=== PATIENT | female | born 1965 | race Caucasian/White ===

== ENCOUNTER → 2017-03-01 | Outpatient (CLI) | payer BC | END | disposition home or self-care (01) | LOC: LABWHC1 06:34 | PROVIDERS: ATTEND Internal Medicine Endocrinology, Diabetes & Metabolism | DX: E03.8 Other specified hypothyroidism (principal) | CPT/HCPCS: 36415; 84443 ==

== ENCOUNTER 2017-03-31 08:00 | Day surgery (SDC) | payer BC ==
[2017-03-29 14:48] VITALS: BMI 39.1
[~2017-03-31 08:00] MED LIST: LACTATED RINGERS 1,000 ML IV SCH
[2017-03-31 08:38] VITALS: RESP 18; TEMP 98.2
[2017-03-31] MEDS ORDERED: LIDOCAINE 1% INJ 10MG/ML (20 ML MDV) ONE (09:34)
[2017-03-31] MEDS ORDERED: PROPOFOL 10 MG/ML 20 ML VIAL IV ONE (09:34)
--- NOTE | 2017-03-31 09:47 | P.PCN ---
Date of Procedure: 03/31/17 Preoperative Diagnosis: Postoperative Diagnosis: Procedure(s) Performed: BRIEF HISTORY: Patient is a 51-year-old pleasant white female, scheduled for an elective colonoscopy as a part of surveillance of long-standing history of Crohn 's colitis diagnosed in 2005. She continues remains in clinical remission. PROCEDURE PERFORMED: Colonoscopy and biopsy. PREOPERATIVE DIAGNOSIS: Long-standing history of Crohn's colitis. IV sedation per Anesthesia. PROCEDURE: After informed consent was obtained, the patient, was brought into the endoscopy unit. IV sedation was administered by Anesthesia under continuous monitoring. Digital rectal examination was normal. Initially the Olympus CF- 160 flexible video colonoscope was then inserted in the rectum, gradually advanced into the cecum without any difficulty. Careful examination was performed as the scope was gradually being withdrawn. Ileocecal valve and the appendiceal orifice were visualized and appeared normal. Prep was excellent. Mucosa of the cecum, ascending colon, transverse colon, descending colon, sigmoid colon, and rectum appeared normal. Random biopsies were done from the rectum, sigmoid colon and descending colon to rule out dysplasia. Retroflexion was performed in the rectum and no lesions were seen. The patient tolerated the procedure well. IMPRESSION: Normal-appearing colon from rectum to cecum with no evidence of colitis or colon rectal neoplasia. RECOMMENDATIONS: Findings of this examination were discussed with the patient as well as her family. She was advised to follow with the biopsy results. If the biopsy does not show any evidence of dysplasia she can have a repeat colonoscopy in 2-3 years. Implants: Indications for Procedure: Operative Findings: Description of Procedure:
[2017-03-31 10:09] VITALS: PULSE 60
[2017-03-31 10:17] VITALS: BP 131/84
== END 2017-03-31 10:52 | disposition home or self-care (01) ==
LOC: ORWHC2ENDO 08:00
PROVIDERS: ATTEND Internal Medicine Gastroenterology
DX: K50.10 Crohn's disease of large intestine without complications (principal); I10 Essential (primary) hypertension; J45.909 Unspecified asthma, uncomplicated; E07.9 Disorder of thyroid, unspecified; M19.90 Unspecified osteoarthritis, unspecified site; Z88.6 Allergy status to analgesic agent; Z88.0 Allergy status to penicillin; Z79.899 Other long term (current) drug therapy
CPT/HCPCS: 81025; 88305; 45380; J2001; J2704

== ENCOUNTER → 2017-11-11 | Outpatient (CLI) | payer BC ==
[2017-11-11 07:58] LABS: Basophils % (A) 0 %; Eosinophils % (A) 0 %; HCT 41.8 % (34.0-46.0); HGB 13.4 gm/dL (11.4-16.0); Lymphocytes # (A) 2.6 k/uL (1.0-4.8); Lymphocytes % (A) 29 %; MCH 28.2 pg (25.0-35.0); Mean Platelet Volume 6.5; Monocytes # (A) 0.8 k/uL (0-1.0); Monocytes % (A) 9 %; Neutrophils # (A) 5.5 k/uL (1.3-7.7); Neutrophils % (A) 61 %; Platelet Count 344 k/uL (150-450); RBC 4.75 m/uL (3.80-5.40); RDW 14.4 % (11.5-15.5); WBC 9.1 k/uL (3.8-10.6)
[2017-11-11 08:07] LABS: ALT 66 U/L (9-52); AST 33 U/L (14-36); Alkaline Phosphatase 90 U/L (38-126); Anion Gap 11 mmol/L; Blood Urea Nitrogen 15 mg/dL (7-17); Carbon Dioxide 27 mmol/L (22-30); Chloride 103 mmol/L (98-107); Cholesterol 239 mg/dL (<200); Glucose 85 mg/dL (74-99); HDL Cholesterol 52 mg/dL (40-60); LDL Cholesterol,Calculated 161 mg/dL (0-99); Potassium 4.1 mmol/L (3.5-5.1); Sodium 141 mmol/L (137-145); Total Bilirubin 0.5 mg/dL (0.2-1.3); Total Protein 7.6 g/dL (6.3-8.2); Triglycerides 132 mg/dL (<150)
== END | disposition home or self-care (01) ==
LOC: LABWHC1 07:30
PROVIDERS: ATTEND Family Medicine
DX: Z00.00 Encounter for general adult medical examination without abnormal findings (principal); E78.00 Pure hypercholesterolemia, unspecified
CPT/HCPCS: 36415; 80053; 80061; 84443; 85025

== ENCOUNTER → 2018-05-19 | Outpatient (CLI) | payer BC | END | disposition home or self-care (01) | LOC: LABWHC1 10:30 | PROVIDERS: ATTEND Internal Medicine Endocrinology, Diabetes & Metabolism | DX: E03.8 Other specified hypothyroidism (principal) | CPT/HCPCS: 36415; 84443 ==

== ENCOUNTER → 2018-06-19 | Outpatient (CLI) | payer BC ==
[2018-06-19 10:46] VITALS: BP 134/92; PULSE 73; TEMP 98.4; BMI 38.5
--- NOTE | 2018-06-19 11:19 | P.HPOB ---
History of Present Illness H&P Date: 06/19/18 Chief Complaint: The patient is here for her routine gynecologic exam and mammogram. This is a 53-year-old with an LMP of 05/23/2018. The patient is without gynecologic complaints at this time. Menses are regular every month. Review of Systems She has gained 3 pounds over the last year. Respiratory: she is getting over a cold. She denies cardiac or G.I. problems. Past Medical History Past Medical History: Asthma, Hyperlipidemia, Osteoarthritis (OA), Skin Disorder Additional Past Medical History / Comment(s): crohn's disease, migraine headaches, varicose veins, oral lichen planus,lichen planus rash on back, thyroid nodule. 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 She had a history of primary infertility and irregular menses in the past. She had a previous left oophorectomy for pain and adhesions. History of Any Multi-Drug Resistant Organisms: None Reported Past Surgical History: Breast Surgery (Multiple breast biopsies), Cholecystectomy, Joint Replacement (Bilateral knee replacements), Orthopedic Surgery (Knee surgeries and carpal tunnel surgery.) Additional Past Surgical History / Comment(s): lt oophorectomy and fallopian tube removed 2011, varicose vein surgery left leg,lasik. Colonoscopy 2012. Past Anesthesia/Blood Transfusion Reactions: No Reported Reaction Past Psychological History: No Psychological Hx Reported Smoking Status: Never smoker Past Alcohol Use History: None Reported Past Drug Use History: None Reported Additional History: She has been since 1994 and works for [employer]. - Past Family History Father Family Medical History: No Reported History Additional Family Medical History / Comment(s): Heart disease Mother Family Medical History: Cancer (Lung), Myocardial Infarction ([place]) Additional Family Medical History / Comment(s): Grandmother had diabetes. Medications and Allergies Home Medications Medication Instructions Recorded Confirmed Type Balsalazide Disodium [Colazal] 2,250 mg PO TID 06/23/14 06/19/18 History Simvastatin 40 mg PO HS 06/23/14 06/19/18 History Buta/APAP/Caf/Cod 51-805-65-30 1 - 2 each PO DAILY PRN 09/18/14 06/19/18 History [Fioricet w/Cod 32-631-10-30MG] Ibuprofen [Motrin] 800 mg PO DAILY PRN 09/18/14 06/19/18 History Multivitamins, Thera [Multivitamin] 1 each PO DAILY 09/18/14 06/19/18 History Topiramate [Topamax] 100 mg PO BID 09/18/14 06/19/18 History Calcium Carb-Vit D 500Mg-200Un 2 each PO BID #60 tablet 09/25/14 06/19/18 Rx [Oscal 500+D] Ascorbic Acid [Vitamin C] 500 mg PO DAILY 03/29/17 06/19/18 History Folic Acid 1 mg PO DAILY 03/29/17 06/19/18 History Loratadine [Claritin] 10 mg PO DAILY 03/29/17 06/19/18 History Pilocarpine [Salagen] 5 mg PO BID 03/29/17 06/19/18 History Thyroid,Pork [[place] Thyroid] 90 mg PO QAM 03/29/17 06/19/18 History Beclomethasone Dip 80 Mcg/Puff PO BID 06/19/18 History [Qvar 80 mcg] Allergies Allergy/AdvReac Type Severity Reaction Status Date / Time aspirin Allergy Dyspnea Verified 06/19/18 10:43 Penicillins Allergy Rapid Verified 06/19/18 10:43 Heart Rate, anxiety attack Exam Vital Signs Temp Pulse BP 06/19/18 10:43 98.4 F 73 134/92 Intake and Output 06/18/18 06/19/18 06/19/18 22:59 06:59 14:59 Other: Weight 111.584 kg Height 5'7", BMI 38.5. This is a well-developed well-nourished white female who is alert and oriented times 3 in no acute distress. HEENT: Within normal limits. NECK: Supple without mass or thyromegaly. CHEST AND LUNGS: Clear to auscultation. HEART: Regular rate and rhythm. BREASTS: Are without mass or discharge. AXILLARY EXAM: Negative for adenopathy. BACK: Negative for CVA tenderness. ABDOMEN: Soft, mildly obese, nontender, without palpable masses. PELVIC EXAM: Normal external genitalia. Cervix and vagina appear normal. There is no unusual discharge. There is no evidence of prolapse. The uterus is midposition, nongravid size and nontender. There are no palpable adnexal masses or tenderness. RECTAL EXAM: rectovaginal exam is negative for mass or tenderness and is negative for occult blood. EXTREMITIES: Nontender. IMPRESSION: 1. 53-year-old premenopausal female with normal gynecologic exam. 2. Mildly Elevated blood pressure. PLAN: 1. Pap smear was performed. 2. Self breast awareness was discussed with the patient. 3. Screening mammogram will be done today. 4. Osteoporosis prevention was discussed. 5. She will do home blood pressure checks on a regular basis and follow-up with Dr. Mario for blood pressure elevations. 6. She will return in one year.
--- NOTE | 2018-06-20 11:48 | MM ---
Reason for exam: screening (asymptomatic). Last mammogram was performed 2 years and 7 months ago. History: Patient had first child at age 36. Benign excisional biopsy of the left breast, November 02, 2007. Took hormonal contraceptives for 18 years beginning at age 25. Took progesterone for 6 months beginning at age 43. Physical Findings: A clinical breast exam by your physician is recommended on an annual basis and results should be correlated with mammographic findings. MG Screening Mammo w CAD Bilateral CC, MLO, and XCCL view(s) were taken. Prior study comparison: November 18, 2015, bilateral MG screening mammo w CAD. May 07, 2014, left breast MG work up mamm w CAD LT. There are scattered fibroglandular densities. No significant changes when compared with prior studies. ASSESSMENT: Benign, BI-RAD 2 RECOMMENDATION: Routine screening mammogram of both breasts in 1 year.
== END ==
LOC: WWCWWP 10:02
PROVIDERS: ATTEND Obstetrics & Gynecology
DX: Z12.31 Encounter for screening mammogram for malignant neoplasm of breast (principal)
CPT/HCPCS: 77067

== ENCOUNTER → 2019-04-08 | Outpatient (CLI) | payer BC | END | disposition home or self-care (01) | LOC: LABWHC1 11:29 | PROVIDERS: ATTEND Internal Medicine Endocrinology, Diabetes & Metabolism | DX: E03.8 Other specified hypothyroidism (principal) | CPT/HCPCS: 36415; 84443 ==

== ENCOUNTER → 2019-09-07 | Outpatient (CLI) | payer BC ==
[2019-09-07 09:22] LABS: Basophils # (A) 0.1 k/uL (0-0.2); Basophils % (A) 1 %; Eosinophils # (A) 0.1 k/uL (0-0.7); Eosinophils % (A) 2 %; HCT 42.4 % (34.0-46.0); HGB 13.3 gm/dL (11.4-16.0); Lymphocytes # (A) 1.7 k/uL (1.0-4.8); Lymphocytes % (A) 27 %; MCH 28.2 pg (25.0-35.0); MCHC 31.3 g/dL (31.0-37.0); MCV 90.1 fL (80.0-100.0); Mean Platelet Volume 6.7; Monocytes # (A) 0.9 k/uL (0-1.0); Monocytes % (A) 14 %; Neutrophils # (A) 3.6 k/uL (1.3-7.7); Neutrophils % (A) 55 %; Platelet Count 296 k/uL (150-450); RBC 4.71 m/uL (3.80-5.40); RDW 14.1 % (11.5-15.5); WBC 6.6 k/uL (3.8-10.6)
[2019-09-07 16:36] LABS: African American GFR (CKD) 120.6 (60.0-200.0); Albumin 4.2 g/dL (3.80-4.90); Albumin/Globulin Ratio 1.62 (1.60-3.17); Anion Gap 6.6 mmol/L (4.00-12.00); BUN/Creat Ratio 18.33 Ratio (12.00-20.00); Calcium 8.9 mg/dL (8.7-10.3); Carbon Dioxide 26.4 mmol/L (21.6-31.8); Chol/HDL Ratio 4.52; Globulin 2.6 g/dL (1.6-3.3); LDL Cholesterol,Calculated 147.6 mg/dL (0.0-131.0); Non-African American GFR(CKD) 104.1 (60.0-200.0); Potassium 4.3 mmol/L (3.5-5.5); Total Bilirubin 0.4 mg/dL (0.3-1.2); Total Protein 6.8 g/dL (6.2-8.2); VLDL Calculation 42.4 mg/dL (5.00-40.00)
== END | disposition home or self-care (01) ==
LOC: LABWHC1 08:30
PROVIDERS: ATTEND Family Medicine
DX: E78.00 Pure hypercholesterolemia, unspecified (principal)
CPT/HCPCS: 36415; 80053; 80061; 85025

== ENCOUNTER 2020-10-02 09:02 | Day surgery (SDC) | payer BC ==
[2020-09-30 16:01] VITALS: BMI 37.8
[~2020-10-02 09:02] MED LIST changes: +LIDOCAINE 1% (10MG/ML) FOR IV START INTRADERMA PRN
[2020-10-02 09:26] VITALS: TEMP 97.3
[2020-10-02] MEDS ORDERED: PROPOFOL 10 MG/ML 20 ML VIAL IV ONE (10:40)
--- NOTE | 2020-10-02 11:06 | P.PCN ---
Date of Procedure: 10/02/20 Procedure(s) Performed: BRIEF HISTORY: Patient is a 55-year-old pleasant female scheduled for an elective colonoscopy as a part of her evaluation of long-standing history of Crohn's colitis diagnosed in 1999. Patient is in clinical remission. PROCEDURE PERFORMED: Colonoscopy with random biopsies. PREOPERATIVE DIAGNOSIS: Surveillance of long-standing history of Crohn's colitis. IV sedation per Anesthesia. PROCEDURE: After informed consent was obtained, the patient, was brought into the endoscopy unit. IV sedation was administered by Anesthesia under continuous monitoring. Digital rectal examination was normal. Initially the Olympus CF-160 flexible video colonoscope was then inserted in the rectum, gradually advanced into the cecum without any difficulty. Careful examination was performed as the scope was gradually being withdrawn. Ileocecal valve and the appendiceal orifice were visualized and appeared normal. Prep was excellent. Mucosa of the cecum, ascending colon, transverse colon, descending colon, sigmoid colon, and rectum appeared normal. Random biopsies were done from the cecum to rectum at every 10 cm into well. Retroflexion was performed in the rectum and no lesions were seen. The patient tolerated the procedure well. IMPRESSION: Normal-appearing colon from rectum to cecum with colitis or colorectal neoplasia. RECOMMENDATIONS: Findings of this examination were discussed with the patient as well as a family. She was advised to follow with the biopsy results. If the biopsy does not show any evidence of dysplasia, she can have a repeat colonoscopy in 2 years.
[2020-10-02 11:35] VITALS: PULSE 61; RESP 16
[2020-10-02 11:51] VITALS: BP 154/88
== END 2020-10-02 11:52 | disposition home or self-care (01) ==
LOC: ORWHC2ENDO 09:02
PROVIDERS: ATTEND Internal Medicine Gastroenterology
DX: K50.10 Crohn's disease of large intestine without complications (principal); K52.9 Noninfective gastroenteritis and colitis, unspecified; E78.5 Hyperlipidemia, unspecified; J45.909 Unspecified asthma, uncomplicated; E07.9 Disorder of thyroid, unspecified; G43.909 Migraine, unspecified, not intractable, without status migrainosus; Z79.891 Long term (current) use of opiate analgesic; Z79.51 Long term (current) use of inhaled steroids; Z79.890 Hormone replacement therapy; Z79.899 Other long term (current) drug therapy; Z88.6 Allergy status to analgesic agent; Z88.0 Allergy status to penicillin
CPT/HCPCS: 81025; 88305; 45380; J2704

== ENCOUNTER → 2020-11-09 | Outpatient (CLI) | payer BC | LOC: LABWHC1 07:40 | PROVIDERS: ATTEND Internal Medicine Endocrinology, Diabetes & Metabolism | DX: E03.8 Other specified hypothyroidism (principal) | CPT/HCPCS: 36415; 84443 ==

== ENCOUNTER → 2021-07-01 | Outpatient (CLI) | payer BC ==
--- NOTE | 2021-07-02 06:54 | US ---
EXAMINATION TYPE: US thyroid st tissue head/neck DATE OF EXAM: 07/01/2021 COMPARISON: 03/02/2015 CLINICAL HISTORY: R22.1 Localized swelling, mass and lump, neck. thyroidectomy years ago, residual ti ssue on the right, still on thyroid meds 2.6 x 2.6 x 1.8cm midline residual tissue noted IMPRESSION: Residual right-sided thyroid tissue noted in the patient is status post thyroidectomy. No significant change appreciated.
== END | disposition home or self-care (01) ==
LOC: RADUSWWP 16:10
PROVIDERS: ATTEND Internal Medicine Endocrinology, Diabetes & Metabolism
DX: R22.1 Localized swelling, mass and lump, neck (principal); E89.0 Postprocedural hypothyroidism
CPT/HCPCS: 76536; 84443

== ENCOUNTER → 2021-12-22 | Outpatient (CLI) | payer BC | END | disposition home or self-care (01) | LOC: LABWHC1 13:55 | PROVIDERS: ATTEND Internal Medicine Endocrinology, Diabetes & Metabolism | DX: E03.8 Other specified hypothyroidism (principal) | CPT/HCPCS: 36415; 84443 ==

== ENCOUNTER → 2022-02-10 | Outpatient (CLI) | payer BC ==
--- NOTE | 2022-02-11 10:49 | US ---
EXAMINATION TYPE: US thyroid st tissue head/neck DATE OF EXAM: 02/10/2022 COMPARISON: US CLINICAL HISTORY: R22.1 NECK SWELLING. Neck swelling. Patient has hx of thyroidectomy. Pt takes thyro id medication currently. GLAND SIZE: Residual tissue is visualized within the midline neck measuring 3.1 x 2.9 x 1.6 cm. Tissue appears ve ry lobulated/heterogeneous as on last exam-unable to accurately identify borders of possible nodules today. TR 3 Bilateral neck scanned, no evidence of lymphadenopathy. IMPRESSION: There may be interval development of a thyroid nodule. Consider additional workup. Biopsy is recommen ded. 2017 ACR TI-RADS LEVEL: TR-RADS 3 - Mildly Suspicious: Follow if > 1.5 cm, FNA if > 2.5 cm *Highest TI-RADS level nodule reported
== END | disposition home or self-care (01) ==
LOC: RADUSWWP 16:15
PROVIDERS: ATTEND Internal Medicine Endocrinology, Diabetes & Metabolism
DX: R22.1 Localized swelling, mass and lump, neck (principal); E89.0 Postprocedural hypothyroidism
CPT/HCPCS: 76536

== ENCOUNTER → 2022-04-05 | Outpatient (CLI) | payer BC ==
[2022-04-05 14:25] VITALS: BP 148/94; PULSE 74; RESP 17; TEMP 98.9
--- NOTE | 2022-04-05 15:10 | P.HPOB ---
History of Present Illness H&P Date: 04/05/22 Chief Complaint: The patient is here for her routine gynecologic exam. This is a 56-year-old with an LMP of 03/13/2022. The patient is infrequently sexually active and uses condoms when sexually active. She is without gynecologic complaints. Menstrual periods are still quite regular approximately every month. She denies hot flashes. Review of Systems She has gained about 15 pounds over the past 4 years. She denies respiratory, cardiac, or GI problems. Past Medical History Past Medical History: Asthma, Hyperlipidemia, Osteoarthritis (OA), Skin Disorder, Thyroid Disorder Additional Past Medical History / Comment(s): crohn's disease, migraine headaches, varicose veins, oral lichen planus, lichen planus rash on back, thyroid nodule. 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 History of Any Multi-Drug Resistant Organisms: None Reported Past Surgical History: Breast Surgery, Cholecystectomy, Joint Replacement, Orthopedic Surgery Additional Past Surgical History / Comment(s): lt oophorectomy and fallopian tube removed 2011, varicose vein surgery left leg,lasik. Colonoscopy 2020(next after 3yr). BILAT KNEE REPLACEMENT. BILATERAL CARPAL TUNNEL SURGERY. Past Anesthesia/Blood Transfusion Reactions: No Reported Reaction Past Psychological History: No Psychological Hx Reported Smoking Status: Never smoker Past Alcohol Use History: None Reported Past Drug Use History: None Reported Additional History: She has been since 1994 and works for [employer]. - Past Family History Father Family Medical History: No Reported History Additional Family Medical History / Comment(s): Heart disease Mother Family Medical History: Cancer, Myocardial Infarction ([place]) Additional Family Medical History / Comment(s): Grandmother had diabetes. Medications and Allergies Home Medications Medication Instructions Recorded Confirmed Type Balsalazide Disodium [Colazal] 2,250 mg PO BID 06/23/14 04/05/22 History Simvastatin 40 mg PO HS 06/23/14 04/05/22 History Buta/APAP/Caf/Cod 48-586-43-30 1 - 2 each PO DAILY PRN 09/18/14 04/05/22 History [Fioricet w/Cod 76-405-43-30MG] Ibuprofen [Motrin] 800 mg PO DAILY PRN 09/18/14 04/05/22 History Multivitamins, Thera [Multivitamin] 1 each PO DAILY 09/18/14 04/05/22 History Topiramate [Topamax] 100 mg PO BID 09/18/14 04/05/22 History Calcium Carb-Vit D 500Mg-5Mcg 2 each PO BID #60 tablet 09/25/14 04/05/22 Rx [Oscal 500+D] Ascorbic Acid [Vitamin C] 500 mg PO DAILY 03/29/17 04/05/22 History Loratadine [Claritin] 10 mg PO DAILY 03/29/17 04/05/22 History Thyroid,Pork [[place] Thyroid] 90 mg PO QAM 03/29/17 04/05/22 History Beclomethasone Dip 80 Mcg/Puff 1 puff INHALATION BID 06/19/18 04/05/22 History [Qvar 80 mcg] Cholecalciferol [Vitamin D3 (25 125 mcg PO DAILY 09/30/20 04/05/22 History Mcg = 1000 Iu)] Folic Acid 0.8 mg PO DAILY 09/30/20 04/05/22 History Allergies Allergy/AdvReac Type Severity Reaction Status Date / Time aspirin Allergy Dyspnea Verified 04/05/22 14:19 Penicillins Allergy Rapid Verified 04/05/22 14:19 Heart Rate, anxiety attack Exam Vital Signs Temp Pulse Resp BP Pulse Ox 04/05/22 14:21 98.9 F 74 17 148/94 96 Intake and Output 04/05/22 04/05/22 04/05/22 06:59 14:59 22:59 Other: Weight 118.841 kg Height 5 feet 7 inches, weight 262 pounds, BMI 41.0. This is a well-developed well-nourished heavyset white female who is alert and oriented times 3 in no acute distress. HEENT: Within normal limits. NECK: Supple without mass or thyromegaly. CHEST AND LUNGS: Clear to auscultation. HEART: Regular rate and rhythm. BREASTS: Are without mass or discharge. AXILLARY EXAM: Negative for adenopathy. BACK: Negative for CVA tenderness. ABDOMEN: Soft, nontender, without palpable masses. PELVIC EXAM: Normal external genitalia with mild atrophy. Cervix and vagina appear normal with mild atrophy. The cervix is slightly friable upon doing the Pap smear. There is no unusual discharge. There is no evidence of prolapse. The uterus is midposition, nongravid size and nontender. There are no palpable adnexal masses or tenderness. RECTAL EXAM: Rectovaginal exam is negative for mass or tenderness and is negative for occult blood. EXTREMITIES: Nontender. IMPRESSION: 1. 56-year-old premenopausal female who uses condoms for control, with normal gynecologic exam. 2. Previous LSO for benign reasons. PLAN: 1. Pap smear cotest was performed. 2. Self breast awareness was discussed with the patient. We have also discussed symptoms associated with inflammatory breast cancer. 3. Screening mammogram is due and the order slip was given to the patient for this. 4. Osteoporosis prevention was discussed. I have stressed the importance of adequate calcium, vitamin D and regular exercise. Recommended amounts of calcium and vitamin D were also discussed. 5. The patient will keep a menstrual calendar a phone and call if menstrual problems. 6. She was advised to return in one year for her annual well woman exam.
== END ==
LOC: WWCWWP 14:05
PROVIDERS: ATTEND Obstetrics & Gynecology
DX: Z01.419 Encounter for gynecological examination (general) (routine) without abnormal findings (principal); J45.909 Unspecified asthma, uncomplicated; E78.5 Hyperlipidemia, unspecified; M19.90 Unspecified osteoarthritis, unspecified site; Z79.899 Other long term (current) drug therapy; Z88.6 Allergy status to analgesic agent; Z88.0 Allergy status to penicillin

== ENCOUNTER → 2022-04-15 | Outpatient (CLI) | payer BC ==
--- NOTE | 2022-04-18 08:34 | MM ---
Reason for Exam: Screening (asymptomatic). Last mammogram was performed 3 year(s) and 10 month(s) ago. Patient History: Menarche at age 17. First Full-Term at age 36. Late child-bearing (after 30). Hormonal Contraceptives for 18 years from age 25 until age 43. 11/02/2007, Benign Excisional Biopsy on the left side. Last menstrual period: 03/15/2022 Risk Values: Prabha 5 year model risk: 1.8%. NCI Lifetime model risk: 12.0%. Prior Study Comparison: 05/07/2014 Left Diagnostic Mammogram, [facility]. 11/18/2015 Bilateral Screening Mammogram, [facility]. 06/19/2018 Bilateral Screening Mammogram, [facility]. Tissue Density: There are scattered fibroglandular densities. Findings: Analyzed By CAD. Focal asymmetry within the right breast in the outer lower quadrant. There is no suspicious group of microcalcifications. Overall Assessment: Incomplete: need additional imaging evaluation, BI-RAD 0 Management: Diagnostic Mammogram of the right breast. A clinical breast exam by your physician is recommended on an annual basis and results should be correlated with mammographic findings. [facility] will attempt to contact patient to return for supplemental views and ultrasound if indicated. Electronically signed and approved by: Jacky Carroll D.O.
== END | disposition home or self-care (01) ==
LOC: RADMAMWWP 15:55
PROVIDERS: ATTEND Obstetrics & Gynecology
DX: Z12.31 Encounter for screening mammogram for malignant neoplasm of breast (principal)
CPT/HCPCS: 77067

== ENCOUNTER 2022-10-07 11:10 | Day surgery (SDC) | payer BC ==
[2022-10-07] MEDS ORDERED: LACTATED RINGERS 1,000 ML IV ONE (12:49)
[2022-10-07 13:00] VITALS: TEMP 98
[2022-10-07] MEDS ORDERED: PROPOFOL 10 MG/ML 20 ML VIAL IV ONE (13:36)
[2022-10-07] MEDS ORDERED: HYDROmorphone (PF) 1 MG/ML ONE (13:36)
--- NOTE | 2022-10-07 13:57 | P.PCN ---
Date of Procedure: 10/07/22 Procedure(s) Performed: BRIEF HISTORY: Patient is a 57-year-old pleasant white female scheduled for an elective colonoscopy as a part of surveillance of long-standing history of Crohn's colitis diagnosed in 2004. PROCEDURE PERFORMED: Colonoscopy with random biopsies.. PREOPERATIVE DIAGNOSIS: Long-standing history of Crohn's colitis. IV sedation per Anesthesia. PROCEDURE: After informed consent was obtained, the patient, was brought into the endoscopy unit. IV sedation was administered by Anesthesia under continuous monitoring. Digital rectal examination was normal. Initially the Olympus CF-160 flexible video colonoscope was then inserted in the rectum, gradually advanced into the cecum without any difficulty. Careful examination was performed as the scope was gradually being withdrawn. Ileocecal valve and the appendiceal orifice were visualized and appeared normal. Prep was excellent. Mucosa of the cecum, ascending colon, transverse colon, descending colon, sigmoid colon, and rectum appeared normal. Retroflexion was performed in the rectum and no lesions were seen. Biopsies were done from the cecum to rectum at every 10 cm intervals to rule out dysplasia. The patient tolerated the procedure well. IMPRESSION: Normal-appearing colon from rectum to cecum no evidence of active c olitis or colorectal neoplasia. RECOMMENDATIONS: Findings of this examination were discussed with the patient as well as a family. She was advised to follow with the biopsy results and have a repeat colonoscopy in 2 years from now..
[2022-10-07 14:03] VITALS: RESP 16
[2022-10-07 14:55] VITALS: BP 135/90; PULSE 73
== END 2022-10-07 14:42 | disposition home or self-care (01) ==
LOC: ORWHC2ENDO 11:10
PROVIDERS: ATTEND Internal Medicine Gastroenterology
DX: K50.118 Crohn's disease of large intestine with other complication (principal); K52.9 Noninfective gastroenteritis and colitis, unspecified; E78.5 Hyperlipidemia, unspecified; G43.909 Migraine, unspecified, not intractable, without status migrainosus; J45.909 Unspecified asthma, uncomplicated; E07.9 Disorder of thyroid, unspecified; Z88.0 Allergy status to penicillin; Z88.6 Allergy status to analgesic agent; Z79.1 Long term (current) use of non-steroidal anti-inflammatories (NSAID); Z79.899 Other long term (current) drug therapy
CPT/HCPCS: 45380; J1170; J2704; 88305

== ENCOUNTER → 2023-04-14 | Outpatient (CLI) | payer BC | END | disposition home or self-care (01) | LOC: LABWHC1 07:19 | PROVIDERS: ATTEND Internal Medicine Endocrinology, Diabetes & Metabolism | DX: E03.8 Other specified hypothyroidism (principal) | CPT/HCPCS: 36415; 84443 ==

== ENCOUNTER → 2023-08-21 | Outpatient (CLI) | payer BC ==
[2023-08-21 16:33] LABS: ALT 23 U/L (8-49); AST 14 U/L (13-35); Albumin 4.2 g/dL (3.8-4.9); Alkaline Phosphatase 93 U/L (41-126); BUN/Creat Ratio 16.12 Ratio (12.00-20.00); Blood Urea Nitrogen 12.9 mg/dL (9.0-27.0); Calcium 9.2 mg/dL (8.7-10.3); Carbon Dioxide 26.2 mmol/L (21.6-31.8); Chloride 101 mmol/L (96-109); Globulin 3.5 g/dL (1.6-3.3); Glucose 83 mg/dL (70-110); Potassium 4.1 mmol/L (3.5-5.5); Sodium 140 mmol/L (135-145); Total Bilirubin 0.3 mg/dL (0.3-1.2); Total Protein 7.7 g/dL (6.2-8.2)
[2023-08-21 16:43] LABS: Basophils # (A) 0.03 X 10*3/uL (0.00-0.10); Basophils % (A) 0.7 %; Eosinophils # (A) 0.03 X 10*3/uL (0.04-0.35); Eosinophils % (A) 0.7 %; HCT 39.8 % (37.2-50.0); HGB 12.9 g/dL (12.0-17.0); Lymphocytes # (A) 1.96 X 10*3/uL (0.90-5.00); Lymphocytes % (A) 42.8 %; MCH 30.7 pg (27.0-32.0); MCHC 32.4 g/dL (32.0-37.0); MCV 94.8 FL (80.0-97.0); Mean Platelet Volume 8.7 FL (9.5-12.2); Monocytes # (A) 0.61 X 10*3/uL (0.20-1.00); Monocytes % (A) 13.3 %; NRBC Per 100 WBC 0 X 10*3/uL (0.00-0.01); Neutrophils # (A) 1.93 X 10*3/uL (1.80-7.70); Neutrophils % (A) 42.1 %; Platelet Count 248 X 10*3/uL (140-440); RBC Morphology Normal (Normal); RDW 14.5 % (11.5-14.5); WBC 4.58 X 10*3/uL (4.50-10.00)
== END | disposition home or self-care (01) ==
LOC: LABWHC1 08:05
PROVIDERS: ATTEND Family Medicine
DX: Z00.00 Encounter for general adult medical examination without abnormal findings (principal); E55.9 Vitamin D deficiency, unspecified; E03.8 Other specified hypothyroidism
CPT/HCPCS: 36415; 80053; 82306; 84443; 85025

== ENCOUNTER → 2023-11-10 | Outpatient (CLI) | payer BC | END | disposition home or self-care (01) | LOC: LABWHC1 09:54 | PROVIDERS: ATTEND Internal Medicine Endocrinology, Diabetes & Metabolism | DX: E03.8 Other specified hypothyroidism (principal) | CPT/HCPCS: 36415; 84443 ==

== ENCOUNTER 2024-05-14 10:22 | Emergency (ER) | payer BC ==
[2024-05-14 10:38] VITALS: RESP 20
--- NOTE | 2024-05-14 10:53 | ED ---
Upper Extremity HPI - General Chief Complaint: Extremity Injury, Upper Stated Complaint: R shoulder pain Time Seen by Provider: 05/14/24 10:51 Source: patient, RN notes reviewed Mode of arrival: ambulatory Limitations: no limitations - History of Present Illness Initial Comments: 59-year-old female presented to the ER with a chief complaint of right shoulder pain. Patient states last week she was seeing a chiropractor for lumbar back pain which has since improved. She states on Monday she started to experience right shoulder pain described send as sharp in nature. Movement exacerbates this. She does report decreased range of motion due to the pain. Denies any cervical neck pain. She does report mild paresthesias with motion. She denies any injuries, traumas or increase in activity from normal. Patient has been taking [id number] Tylenol and light using lidocaine patches without relief. Patient denies any chest pain, shortness of breath, dizziness, lightheadedness, nausea or vomiting. - Related Data Home Medications Medication Instructions Recorded Confirmed Balsalazide Disodium [Colazal] 2,250 mg PO BID 06/23/14 10/05/22 Simvastatin 40 mg PO HS 06/23/14 10/05/22 Buta/APAP/Caf/Cod 28-870-45-30 1 - 2 each PO DAILY PRN 09/18/14 10/05/22 [Fioricet w/Cod 17-219-64-30MG] Ibuprofen [Motrin] 800 mg PO DAILY PRN 09/18/14 10/05/22 Multivitamins, Thera [Multivitamin] 1 each PO DAILY 09/18/14 10/05/22 Topiramate [Topamax] 100 mg PO BID 09/18/14 10/05/22 Ascorbic Acid [Vitamin C] 500 mg PO DAILY 03/29/17 10/05/22 Loratadine [Claritin] 10 mg PO DAILY 03/29/17 10/05/22 Thyroid,Pork [[place] Thyroid] 90 mg PO QAM 03/29/17 10/05/22 Beclomethasone Dip 80 Mcg/Puff 1 puff INHALATION DAILY PRN 06/19/18 10/05/22 [Qvar 80 mcg] Cholecalciferol [Vitamin D3 (25 125 mcg PO DAILY 09/30/20 10/05/22 Mcg = 1000 Iu)] Folic Acid 0.8 mg PO DAILY 09/30/20 10/05/22 Previous Rx's Medication Instructions Recorded Calcium Carb-Vit D 500Mg-5Mcg 2 each PO BID #60 tablet 09/25/14 [Oscal 500+D] Cyclobenzaprine [Flexeril] 10 mg PO TID PRN #15 tab 05/14/24 Allergies Allergy/AdvReac Type Severity Reaction Status Date / Time aspirin Allergy Dyspnea Verified 05/14/24 10:38 Penicillins Allergy Rapid Verified 05/14/24 10:38 Heart Rate, anxiety attack Review of Systems ROS Statement: Those systems with pertinent positive or pertinent negative responses have been documented in the HPI. ROS Other: All systems not noted in ROS Statement are negative. Past Medical History Past Medical History: Asthma, Hyperlipidemia, Osteoarthritis (OA), Skin Disorder, Thyroid Disorder Additional Past Medical History / Comment(s): crohn's disease, migraine hea daches, varicose veins, oral lichen planus, lichen planus rash on back, thyroid nodule. History of Any Multi-Drug Resistant Organisms: None Reported Past Surgical History: Breast Surgery, Cholecystectomy, Joint Replacement, Orthopedic Surgery Additional Past Surgical History / Comment(s): lt oophorectomy and fallopian tube removed 2011, varicose vein surgery left leg,lasik. Colonoscopy 2020(next after 3yr). BILAT KNEE REPLACEMENT. BILATERAL CARPAL TUNNEL SURGERY. breast bx on lft Past Anesthesia/Blood Transfusion Reactions: No Reported Reaction Past Psychological History: No Psychological Hx Reported Smoking Status: Never smoker Past Alcohol Use History: None Reported Past Drug Use History: None Reported - Past Family History Father Family Medical History: No Reported History Additional Family Medical History / Comment(s): Heart disease Mother Family Medical History: Cancer, Myocardial Infarction (AR) Additional Family Medical History / Comment(s): Grandmother had diabetes. General Exam Limitations: no limitations General appearance: alert, in no apparent distress Neck exam: Present: normal inspection. Absent: tenderness, meningismus, lymphadenopathy Respiratory exam: Present: normal lung sounds bilaterally. Absent: respiratory distress, wheezes, rales, rhonchi, stridor Cardiovascular Exam: Present: regular rate, normal rhythm, normal heart sounds. Absent: systolic murmur, diastolic murmur, rubs, gallop, clicks Extremities exam: Present: tenderness (Right clavicle. 2+ right radial pulse. Muscle tenderness right trapezius. 3+) Course Vital Signs 05/14/24 05/14/24 10:35 12:18 Temperature 98.2 F 98.1 F Pulse Rate 91 88 Respiratory 20 20 Rate Blood Pressure 131/86 128/77 O2 Sat by Pulse 97 98 Oximetry Medical Decision Making - Medical Decision Making Was pt. sent in by a medical professional or institution (, [place], [facility], urgent care, hospital, or prison...) When possible be specific @ -No Did you speak to anyone other than the patient for history (EMS, parent, family, police, friend...)? What history was obtained from this source @ -No Did you review nursing and triage notes (agree or disagree)? Why? @ -I reviewed and agree with nursing and triage notes Were old charts reviewed (outside hosp., previous admission, EMS record, old EKG, old radiological studies, urgent care reports/EKG's, prison records)? Report findings @ -No old charts were reviewed Differential Diagnosis (chest pain, altered mental status, abdominal pain women, abdominal pain men, vaginal bleeding, weakness, fever, dyspnea, syncope, headache, dizziness, GI bleed, back pain, seizure, CVA, palpatations, mental health, musculoskeletal)? @ -Differential Musculoskeletal Muscular strain, contusion, ligament sprain, fracture, arthritis, septic arthritis, bursitis, cellulitis, muscle spasm, nerve compression, DVT, arterial occlusion, herpes zoster, electrolyte abnormality, tumor.... This is not meant to be in all inclusive list EKG interpreted by me (3pts min.). @ -None X-rays interpreted by me (1pt min.). @ -Right shoulder x-ray interpreted me showing mild AC joint arthropathy. No acute osseous process. Cervical spine negative for acute process. CT interpreted by me (1pt min.). @ -None done U/S interpreted by me (1pt. min.). @ -None done What testing was considered but not performed or refused? (CT, X-rays, U/S, labs)? Why? @ -None What meds were considered but not given or refused? Why? @ -None Did you discuss the management of the patient with other professionals (professionals i.e. , TERE, [facility], lab, RT, psych nurse, social insurance adviser, proration clerk, teacher, credit or loans officer, community case manager)? Give summary @ -No Was smoking cessation discussed for >3mins.? @ -No Was critical care preformed (if so, how long)? @ -No Were there social determinants of health that impacted care today? How? (Homelessness, low income, unemployed, alcoholism, drug addiction, transportation, low edu. Level, literacy, decrease access to med. care, penitentiary, rehab)? @ -No Was there de-escalation of care discussed even if they declined (Discuss DNR or withdrawal of care, Hospice)? DNR status @ -No What co-morbidities impacted this encounter? (DM, HTN, Smoking, COPD, CAD, Cancer, CVA, ARF, Chemo, Hep., AIDS, mental health diagnosis, sleep apnea, morbid obesity)? @ -None Was patient admitted / discharged? Hospital course, mention meds given and route, prescriptions, significant lab abnormalities, going to OR and other pertinent info. @ -Discharge. 59-year-old female presenting to the ER with a chief complaint of right shoulder pain. History and physical exam completed. Vitals within normal limits. Focal tenderness to right trapezius with limited range of motion due to pain. Right upper extremity neurovascular intact. Patient given p.o. ibuprofen for symptom control in the ER. X-rays obtained negative. Pain believed to be musculoskeletal in nature as worse with movement, palpation with no other symptoms. Flexeril prescribed. Advise close follow-up with PCP. Strict return parameters discussed. Patient discharged in stable condition. Patient verbally expressed understanding agree with care plan. Case discussed with the attending, Dr. Martinez. Undiagnosed new problem with uncertain prognosis? @ -No Drug Therapy requiring intensive monitoring for toxicity (Heparin, Nitro, Insulin, Cardizem)? @ -No Were any procedures done? @ -No Diagnosis/symptom? @ -Shoulder pain Acute, or Chronic, or Acute on Chronic? @ -Acute Uncomplicated (without systemic symptoms) or Complicated (systemic symptoms)? @ -Uncomplicated Side effects of treatment? @ -No Exacerbation, Progression, or Severe Exacerbation? @ -No Poses a threat to life or bodily function? How? (Chest pain, [place], [place], pneumonia, PE, COPD, DKA, ARF, appy, cholecystitis, CVA, Diverticulitis, Homicidal, Suicidal, threat to staff... and all critical care pts) @ -No Disposition Clinical Impression: Shoulder pain Disposition: HOME SELF-CARE Condition: Stable Instructions (If sedation given, give patient instructions): Shoulder Pain (ED) Additional Instructions: You may take [id number] Tylenol and Motrin for pain control. Follow-up with PCP. Return to the ER for any new or worsening concerns. Prescriptions: Cyclobenzaprine [Flexeril] 10 mg PO TID PRN #15 tab PRN Reason: Muscle Spasm Is patient prescribed a controlled substance at d/c from ED?: No Referrals: Macario Mario [Primary Care Provider] - 1-2 days Time of Disposition: 12:13
[2024-05-14] MEDS: ACETAMINOPHEN TAB 500 MG TAB PO STA (11:02)
[2024-05-14] MEDS: IBUPROFEN 600 MG TAB PO STA (11:20)
--- NOTE | 2024-05-14 11:37 | XR ---
EXAMINATION TYPE: XR shoulder complete RT DATE OF EXAM: 05/14/2024 COMPARISON: NONE HISTORY: Pain TECHNIQUE: Two views are submitted. FINDINGS: The osseous structures are intact. There is no acute fracture or dislocation. Mild hypertrophic arth ropathy AC joint. Mild generalized demineralization. IMPRESSION: 1. Mild AC joint arthropathy.
--- NOTE | 2024-05-14 11:37 | XR ---
EXAMINATION TYPE: XR cervical spine comp DATE OF EXAM: 05/14/2024 COMPARISON: NONE HISTORY: None TECHNIQUE: Four views are submitted. FINDINGS: The odontoid is intact. There are no compression deformities. The prevertebral soft tissue structur es are within normal limits. Atrophic spurring C5-C6. Soft tissue calcification right neck likely re lated to carotid artery. Mild multilevel facet arthropathy. IMPRESSION: 1. Mild multilevel facet arthropathy. Hypertrophic spurring C5-C6.
[2024-05-14 12:20] VITALS: BP 128/77; PULSE 88; TEMP 98.1
== END 2024-05-14 12:20 | disposition home or self-care (01) ==
LOC: EC 10:22
DX: M25.519 Pain in unspecified shoulder
CPT/HCPCS: 72050; 99283

== ENCOUNTER 2024-05-31 02:59 | Emergency (ER) | payer BC ==
[2024-05-31 03:14] LABS: Glucose,Whole Blood 188 mg/dL (70-110)
[2024-05-31] MEDS: SODIUM CHLORIDE 0.9% 500 ML 500 ML IV SCH (03:53)
[2024-05-31] MEDS: ACETAMINOPHEN TAB 500 MG TAB PO STA (04:09)
[2024-05-31] MEDS: SODIUM CHLORIDE 0.9% 2,000 ML IV ONE (04:12)
[2024-05-31] MEDS: LEVOFLOXACIN 750MG-D5W PMX 750 MG in DEXTROSE/WATER 1 150ML.BAG IVPB STA (04:15)
[2024-05-31 04:18] LABS: Anisocytosis Slight; HCT 20.4 % (34.0-46.0); Hypochromasia Slight; MCH 32.9 pg (25.0-35.0); MCHC 33.8 g/dL (31.0-37.0); MCV 97.4 fL (80.0-100.0); Macrocytosis Slight; Mean Platelet Volume 9.3; Platelet Count 115 k/uL (150-450); Poikilocytosis Slight; RBC 2.09 m/uL (3.80-5.40); RDW 16.3 % (11.5-15.5)
[2024-05-31] MEDS: SODIUM CHLORIDE 0.9% 500 ML 500 ML IV ONE (04:21)
[2024-05-31 04:25] LABS: ALT 40 U/L (4-34); AST 83 U/L (14-36); African American GFR (CKD) 16 (>60 ml/min/1.73 sqM); Albumin 3.2 g/dL (3.5-5.0); Alkaline Phosphatase 130 U/L (38-126); Anion Gap 12 mmol/L; Blood Urea Nitrogen 54 mg/dL (7-17); Carbon Dioxide 33 mmol/L (22-30); Chloride 88 mmol/L (98-107); Glucose 175 mg/dL (74-99); Non-African American GFR(CKD) 14 (>60 ml/min/1.73 sqM); Sodium 133 mmol/L (137-145); Total Bilirubin 1.5 mg/dL (0.2-1.3); Total Protein 6.9 g/dL (6.3-8.2)
--- NOTE | 2024-05-31 04:26 | ED ---
General Adult HPI - General Chief complaint: Syncope Stated complaint: Syncope Time Seen by Provider: 05/31/24 03:44 Source: EMS Mode of arrival: EMS - History of Present Illness Initial comments: Patient is a 59-year-old female past medical history thyroid disorder presenting today for syncope. Hx provided by and patient. Pt was at physical therapy today when she had a brief syncopal episode. Later this evening patient had gotten up to the bathroom and had another syncopal episode. She called out for her who found her on the floor of her closet on a pile of clothes unconscious. When the patient woke up he tried to stand her up again but patient had another brief syncopal episode. Throughout the last 2 days patient has had decreased appetite and has not been eating or drinking as much as usual. She also endorses associated body aches. Today began noticing epigastric and left lower quadrant pain. She describes a sharp pain. Had 2 episodes nonbloody nonbilious emesis. 1 bowel movement today that was nonbloody, no diarrhea. No dysuria or hematuria. Patient has had a prior cholecystectomy. She denies recent fevers, shortness of breath, cough, dizziness, neck pain, chest pain. - Related Data Home Medications Medication Instructions Recorded Confirmed Balsalazide Disodium [Colazal] 2,250 mg PO BID 06/23/14 10/05/22 Simvastatin 40 mg PO HS 06/23/14 10/05/22 Buta/APAP/Caf/Cod [id number] 1 - 2 each PO DAILY PRN 09/18/14 10/05/22 [Fioricet w/Cod 30-004-84-30MG] Ibuprofen [Motrin] 800 mg PO DAILY PRN 09/18/14 10/05/22 Multivitamins, Thera [Multivitamin] 1 each PO DAILY 09/18/14 10/05/22 Topiramate [Topamax] 100 mg PO BID 09/18/14 10/05/22 Ascorbic Acid [Vitamin C] 500 mg PO DAILY 03/29/17 10/05/22 Loratadine [Claritin] 10 mg PO DAILY 03/29/17 10/05/22 Thyroid,Pork [[place] Thyroid] 90 mg PO QAM 03/29/17 10/05/22 Beclomethasone Dip 80 Mcg/Puff 1 puff INHALATION DAILY PRN 06/19/18 10/05/22 [Qvar 80 mcg] Cholecalciferol [Vitamin D3 (25 125 mcg PO DAILY 09/30/20 10/05/22 Mcg = 1000 Iu)] Folic Acid 0.8 mg PO DAILY 09/30/20 10/05/22 Previous Rx's Medication Instructions Recorded Calcium Carb-Vit D 500Mg-5Mcg 2 each PO BID #60 tablet 09/25/14 [Oscal 500+D] Cyclobenzaprine [Flexeril] 10 mg PO TID PRN #15 tab 05/14/24 Allergies Allergy/AdvReac Type Severity Reaction Status Date / Time aspirin Allergy Dyspnea Verified 05/14/24 10:38 Penicillins Allergy Rapid Verified 05/14/24 10:38 Heart Rate, anxiety attack Review of Systems ROS Statement: Those systems with pertinent positive or pertinent negative responses have been documented in the HPI. ROS Other: All systems not noted in ROS Statement are negative. Constitutional: Denies: fever Past Medical History Past Medical History: Asthma, Hyperlipidemia, Osteoarthritis (OA), Skin Disorder, Thyroid Disorder Additional Past Medical History / Comment(s): crohn's disease, migraine headaches, varicose veins, oral lichen planus, lichen planus rash on back, thyroid nodule. History of Any Multi-Drug Resistant Organisms: None Reported Past Surgical History: Breast Surgery, Cholecystectomy, Joint Replacement, Orthopedic Surgery Additional Past Surgical History / Comment(s): lt oophorectomy and fallopian tube removed 2011, varicose vein surgery left leg,lasik. Colonoscopy 2020(next after 3yr). BILAT KNEE REPLACEMENT. BILATERAL CARPAL TUNNEL SURGERY. breast bx on lft Past Anesthesia/Blood Transfusion Reactions: No Reported Reaction Past Psychological History: No Psychological Hx Reported Smoking Status: Never smoker Past Alcohol Use History: None Reported Past Drug Use History: None Reported - Past Family History Father Family Medical History: No Reported History Additional Family Medical History / Comment(s): Heart disease Mother Family Medical History: Cancer, Myocardial Infarction (DC) Additional Family Medical History / Comment(s): Grandmother had diabetes. General Exam - General Exam Comments Initial Comments: PE: CONSTITUTIONAL: No apparent distress, ill-appearing, awake and alert SKIN: Warm, dry, no jaundice, hives or petechiae EYES: Pupils are equally round, extraocular movements intact without nystagmus, clear conjunctiva, non-icteric sclera HENT: Normocephalic, atraumatic, dry mucus membranes, oropharynx clear without exudates, no palpable hematomas or contusions NECK: , Full range of motion, normal appearance, no midline spinal TTP, patient able to range her neck through full range of motion without midline spinal tenderness or radiculopathy PULMONARY: Rales in the left upper lobe, no wheezes, normal excursion, no accessory muscle use and no stridor CARDIOVASCULAR: Tachycardia, regular rhythm normal S1 and S2. No appreciated murmurs, rubs or gallops. Strong radial pulses with intact distal perfusion. No lower extremity edema GASTROINTESTINAL: Soft, epigastric and left lower quadrant tenderness to pal pation non-distended, no palpable masses, no rebound or guarding. No hepatosplenomegaly GENITOURINARY: MUSCULOSKELETAL: Extremities have no gross deformity, no edema, redness, or swelling. No calf swelling NEUROLOGIC:_a/o x 3, GCS 15, normal mentation and speech. Moves all extremities x 4 without motor or sensory deficit PSYCHIATRIC:_normal mood and affect, thought process is clear and linear Course Vital Signs 05/31/24 05/31/24 05/31/24 03:00 05:04 06:35 Temperature 100.5 F H 99.6 F Pulse Rate 114 H 158 H 104 H Respiratory 16 26 H 20 Rate Blood Pressure 134/84 125/82 101/68 O2 Sat by Pulse 84 L 95 94 L Oximetry - Reevaluation(s) Reevaluation #1: 05/31/24 04:56 Called regarding critical WBC of 210, K 1.1, Hgb 6.9. Concern for blast crisis, consult placed to hematology at [facility]/. Reevaluation #2: Patient tachycardic and hypoxic, GFR 14. There is still concern for PE. I disucssed with patient and her potential risk of contrast induced nephropathy and ultimate possible need for dialysis if renal function worsens due to contrast administration. Patient and agreed they would rather rule out PE via CT. Will proceed with PE study. 05/31/24 05:16 05/31/24 21:14 EKG Findings - EKG Comments: EKG Findings:: Sinus tachycardia with occasional PVCs, rate 110 bpm, NV interval 155 ms, QRS duration 98 ms, QT/QTc 330/3 to 95 ms, borderline left axis deviat ion, no ST elevations or depressions Medical Decision Making - Medical Decision Making Was pt. sent in by a medical professional or institution (TERE Ritchie, CREDIT AND COLLECTIONS REPRESENTATIVE, urgent care, hospital, or correction...) When possible be specific @ -No Did you speak to anyone other than the patient for history (EMS, parent, family, police, friend...)? What history was obtained from this source @ -Spoke with patient's at bedside Did you review nursing and triage notes (agree or disagree)? Why? @ -I reviewed and agree with nursing and triage notes Were old charts reviewed (outside hosp., previous admission, EMS record, old EKG, old radiological studies, urgent care reports/EKG's, correction records)? Report findings @ -No recent visits to the ED or admissions to the hospital Differential Diagnosis (chest pain, altered mental status, abdominal pain women, abdominal pain men, vaginal bleeding, weakness, fever, dyspnea, syncope, headache, dizziness, GI bleed, back pain, seizure, CVA, palpatations, mental health, musculoskeletal)? @Differential Syncope: Valvular disease, hypertrophic cardiomyopathy, pulmonary embolism, tamponade, tachycardia, bradycardia, DC, hypovolemia, hemorrhage, anemia, intracranial hemorrhage, seizure, hypoglycemia, sepsis this is not meant to be an all- inclusive list. EKG interpreted by me (3pts min.). @ -Sinus tachycardia X-rays interpreted by me (1pt min.). @ -None done CT interpreted by me (1pt min.). @ -No evidence of pulmonary embolism U/S interpreted by me (1pt. min.). @ -None done What testing was considered but not performed or refused? (CT, X-rays, U/S, labs)? Why? @ -Did consider CT brain given syncopal episode and patient unable to recall if she hit her head after passing out however patient found on a pile of clothes without evidence of head trauma, head and neck atraumatic on arrival with no signs of injury, AOx3, no focal neuro deficits, [place] head CT rule negative What meds were considered but not given or refused? Why? @ -I did consider heparin given elevated troponin however due to hemoglobin being less than 7 and no signs of STEMI on EKG, this was withheld, suspect elevated troponin 2/2 type II ischemia 2/2 hypoxia. Additionally, prior to discussion with tennis desk team member, PRBC withheld out of concern for pt's hyperleukocytosis and potential for hyperviscosity Did you discuss the management of the patient with other professionals (professionals i.e. , PA, CREDIT AND COLLECTIONS REPRESENTATIVE, lab, RT, psych nurse, social insurance adviser, manager of drilling, teacher, wildlife conservation officer, social work case manager)? Give summary @ -Discussed with Dr. Eagle, hematology, [facility], agrees pt should be transferred for induction chemotherapy and further treatment for suspected Blast crisis Was smoking cessation discussed for >3mins.? @ -No Was critical care preformed (if so, how long)? @ -Yes, 60 minutes Were there social determinants of health that impacted care today? How? (Homelessness, low income, unemployed, alcoholism, drug addiction, transportation, low edu. Level, literacy, decrease access to med. care, custodial, rehab)? @ -No Was there de-escalation of care discussed even if they declined (Discuss DNR or withdrawal of care, Hospice)? @ -No What co-morbidities impacted this encounter? (DM, HTN, Smoking, COPD, CAD, Cancer, CVA, ARF, Chemo, Hep., AIDS, mental health diagnosis, sleep apnea, morbid obesity)? @ -None Was patient admitted / discharged? Hospital course, mention meds given and route, prescriptions, significant lab abnormalities, going to OR and other pertinent info. @ -Hospital course transferred to [facility] Patient is a 59-year-old female past medical history thyroid disorder, ulcerativ e colitis presenting today for 2 syncopal episodes. Patient ill-appearing febrile and hypoxic on arrival. Pulse ox 86% on room air, placed on 3 L nasal cannula. She denies any feelings of shortness of breath or difficulty in breathing. Temp 100.5 F. Rales in left upper lung field. Tenderness to palpation of epigastrium left lower quadrant. Sepsis bundle ordered. including 30 cc/kg bolus. Levaquin ordered. Labs here are significant for white blood cell count of 210, platelets 115, hemoglobin 6.9, potassium 1.1, creatinine 3.54, prior was within normal limits, GFR of 14. Troponin 1.530. D-dimer greater than 34. Peripheral smear did show 23% blasts. Replacement potassium ordered, IV and oral. Updated pt and . Pt's tachycardia worsened with HR 150s, BP stable, MAP 76. Pt continuing to receive fluid resuscitation, suspect multiple causes driving tachycardia, such as volume depletion, sepsis, anemia, pain, fever, PE. Pt endorsed diffuse body pain, dilaudid ordered. Discussed potential need for transfer to [place] for further treatment and concern for possible leukemia and blast crisis. Pt and agreeable with plan. Additionally I discussed with the patient and her my persistent concern for pulmonary embolism. We discussed patient's ORTIZ and low GFR and possibility of contrast-induced nephropathy and risks and benefits of administration of contrast versus possibility of pulmonary embolism. Patient has been referred to rule out PE, share decision making used and CT PE study was proceeded with. Discussed with Dr. Aceves, Hematology at [facility] who kindly recommended transfer for induction chemotherapy. Agreed blood transfusion would be advisable. Ordered 1 unit PRBCs. Magnesium 0.7. Calcium 5.9, ionized calcium 3.1. Ordered replacement magnesium and calcium. I discussed with patient's need for transfer and discussi on with Dr. Aceves. Patient's was agreeable with plan for transfer. On reassessment patient sleeping comfortably, tachycardia improved to HR in low 100s, BP remained stable. Discussed with Dr. Ayala, ED physician at [facility] for ED to ED transfer for ultimately ICU admission. Pt accepted for transfer. CT PE study did not show any central acute PE, mild cardiomegaly and mild bilateral alveolar edema present correlate for CHF with exacerbation or fluid overload state. Ct abdomen/pelvis read not completed at time of transfer. Pt stabilized for transfer emergently to [facility] for further treatment. Undiagnosed new problem with uncertain prognosis? @Yes Drug Therapy requiring intensive monitoring for toxicity (Heparin, Nitro, Insulin, Cardizem)? @ -No Were any procedures done? @ -No Diagnosis/symptom? @ -Blast crisis, ORTIZ, hypokalemia, hypomagnesemia, hypocalcemia, sepsis Acute, or Chronic, or Acute on Chronic? @ -Acute Uncomplicated (without systemic symptoms) or Complicated (systemic symptoms)? @ -Complicated Side effects of treatment? @ -No Exacerbation, Progression, or Severe Exacerbation? @ -No Poses a threat to life or bodily function? How? (Chest pain, USA, DC, pneumonia, PE, COPD, DKA, ARF, appy, cholecystitis, CVA, Diverticulitis, Homicidal, Suicidal, threat to staff... and all critical care pts) @ -Yes - Lab Data Result diagrams: 05/31/24 04:55 05/31/24 04:55 Lab Results 05/31/24 05/31/24 05/31/24 Range/Units 03:13 03:16 03:18 WBC 210.1 H* (3.8-10.6) k/uL RBC 2.09 L (3.80-5.40) m/uL Hgb 6.9 L* (11.4-16.0) gm/dL Hct 20.4 L (34.0-46.0) % MCV 97.4 (80.0-100.0) fL MCH 32.9 (25.0-35.0) pg MCHC 33.8 (31.0-37.0) g/dL RDW 16.3 H (11.5-15.5) % Plt Count 115 L (150-450) k/uL MPV 9.3 Neutrophils % (Manual) 13 % Lymphocytes % (Manual) 23 % Monocytes % (Manual) 41 % Blast Cells % 23 H* % Neutrophils # (Manual) 27.31 H (1.3-7.7) k/uL Lymphocytes # (Manual) 48.32 H (1.0-4.8) k/uL Monocytes # (Manual) 86.14 H (0-1.0) k/uL Blast Cells # (Man) 48.32 H (0) k/uL Nucleated RBCs 0 (0-0) /100 WBC Manual Slide Review Performed Pathologist Review See comment A Hypochromasia Slight Hypochromasia (manual) Present Poikilocytosis Slight Anisocytosis Slight Anisocytosis (manual) Present Macrocytosis Slight PT (10.0-12.5) sec INR (<1.2) APTT (22.0-30.0) sec D-Dimer (<0.60) mg/L FEU Sodium (137-145) mmol/L Potassium (3.5-5.1) mmol/L Chloride (98-107) mmol/L Carbon Dioxide (22-30) mmol/L Anion Gap mmol/L BUN (7-17) mg/dL Creatinine (0.52-1.04) mg/dL Est GFR (CKD-EPI)AfAm (>60 ml/min/1.73 sqM) Est GFR (CKD-EPI)NonAf (>60 ml/min/1.73 sqM) Glucose (74-99) mg/dL POC Glucose (mg/dL) 188 H (70-110) mg/dL POC Glu Second Watch Sergeant ID Xiomara Hoover Lactic Ac Sepsis Rflx Plasma Lactic Acid Iker (0.7-2.0) mmol/L Calcium (8.4-10.2) mg/dL Ionized Calcium Aaliyah (4.5-5.3) mg/dL Phosphorus (2.5-4.5) mg/dL Magnesium (1.6-2.3) mg/dL Total Bilirubin (0.2-1.3) mg/dL AST (14-36) U/L ALT (4-34) U/L Alkaline Phosphatase (38-126) U/L Troponin I (0.000-0.034) ng/mL Total Protein (6.3-8.2) g/dL Albumin (3.5-5.0) g/dL Lipase (23-300) U/L TSH (0.465-4.680) mIU/L HCG, Qual Cortisol (3.1-22.4) UG/DL Influenza Type A (PCR) Not Detected (Not Detectd) Influenza Type B (PCR) Not Detected (Not Detectd) RSV (PCR) Not Detected (Not Detectd) SARS-CoV-2 (PCR) Not Detected (Not Detectd) Blood Type Blood Type Recheck Bld Type Recheck Status Antibody Screen Crossmatch Spec Expiration Date 05/31/24 05/31/24 05/31/24 Range/Units 03:18 03:18 03:18 WBC (3.8-10.6) k/uL RBC (3.80-5.40) m/uL Hgb (11.4-16.0) gm/dL Hct (34.0-46.0) % MCV (80.0-100.0) fL MCH (25.0-35.0) pg MCHC (31.0-37.0) g/dL RDW (11.5-15.5) % Plt Count (150-450) k/uL MPV Neutrophils % (Manual) % Lymphocytes % (Manual) % Monocytes % (Manual) % Blast Cells % % Neutrophils # (Manual) (1.3-7.7) k/uL Lymphocytes # (Manual) (1.0-4.8) k/uL Monocytes # (Manual) (0-1.0) k/uL Blast Cells # (Man) (0) k/uL Nucleated RBCs (0-0) /100 WBC Manual Slide Review Pathologist Review Hypochromasia Hypochromasia (manual) Poikilocytosis Anisocytosis Anisocytosis (manual) Macrocytosis PT 15.3 H (10.0-12.5) sec INR 1.5 H (<1.2) APTT 32.4 H (22.0-30.0) sec D-Dimer (<0.60) mg/L FEU Sodium 133 L (137-145) mmol/L Potassium 1.1 L* (3.5-5.1) mmol/L Chloride 88 L (98-107) mmol/L Carbon Dioxide 33 H (22-30) mmol/L Anion Gap 12 mmol/L BUN 54 H (7-17) mg/dL Creatinine 3.41 H (0.52-1.04) mg/dL Est GFR (CKD-EPI)AfAm 16 (>60 ml/min/1.73 sqM) Est GFR (CKD-EPI)NonAf 14 (>60 ml/min/1.73 sqM) Glucose 175 H (74-99) mg/dL POC Glucose (mg/dL) (70-110) mg/dL POC Glu Second Watch Sergeant ID Lactic Ac Sepsis Rflx Plasma Lactic Acid Iker 2.1 H* (0.7-2.0) mmol/L Calcium 5.9 L* (8.4-10.2) mg/dL Ionized Calcium Aaliyah (4.5-5.3) mg/dL Phosphorus (2.5-4.5) mg/dL Magnesium (1.6-2.3) mg/dL Total Bilirubin 1.5 H (0.2-1.3) mg/dL AST 83 H (14-36) U/L ALT 40 H (4-34) U/L Alkaline Phosphatase 130 H (38-126) U/L Troponin I (0.000-0.034) ng/mL Total Protein 6.9 (6.3-8.2) g/dL Albumin 3.2 L (3.5-5.0) g/dL Lipase (23-300) U/L TSH 2.040 (0.465-4.680) mIU/L HCG, Qual Cortisol 35.5 H (3.1-22.4) UG/DL Influenza Type A (PCR) (Not Detectd) Influenza Type B (PCR) (Not Detectd) RSV (PCR) (Not Detectd) SARS-CoV-2 (PCR) (Not Detectd) Blood Type Blood Type Recheck Bld Type Recheck Status Antibody Screen Crossmatch Spec Expiration Date 05/31/24 05/31/24 05/31/24 Range/Units 03:18 03:18 03:50 WBC (3.8-10.6) k/uL RBC (3.80-5.40) m/uL Hgb (11.4-16.0) gm/dL Hct (34.0-46.0) % MCV (80.0-100.0) fL MCH (25.0-35.0) pg MCHC (31.0-37.0) g/dL RDW (11.5-15.5) % Plt Count (150-450) k/uL MPV Neutrophils % (Manual) % Lymphocytes % (Manual) % Monocytes % (Manual) % Blast Cells % % Neutrophils # (Manual) (1.3-7.7) k/uL Lymphocytes # (Manual) (1.0-4.8) k/uL Monocytes # (Manual) (0-1.0) k/uL Blast Cells # (Man) (0) k/uL Nucleated RBCs (0-0) /100 WBC Manual Slide Review Pathologist Review Hypochromasia Hypochromasia (manual) Poikilocytosis Anisocytosis Anisocytosis (manual) Macrocytosis PT (10.0-12.5) sec INR (<1.2) APTT (22.0-30.0) sec D-Dimer >34.00 H (<0.60) mg/L FEU Sodium (137-145) mmol/L Potassium (3.5-5.1) mmol/L Chloride (98-107) mmol/L Carbon Dioxide (22-30) mmol/L Anion Gap mmol/L BUN (7-17) mg/dL Creatinine (0.52-1.04) mg/dL Est GFR (CKD-EPI)AfAm (>60 ml/min/1.73 sqM) Est GFR (CKD-EPI)NonAf (>60 ml/min/1.73 sqM) Glucose (74-99) mg/dL POC Glucose (mg/dL) (70-110) mg/dL POC Glu Second Watch Sergeant ID Lactic Ac Sepsis Rflx Plasma Lactic Acid Iker (0.7-2.0) mmol/L Calcium (8.4-10.2) mg/dL Ionized Calcium Aaliyah (4.5-5.3) mg/dL Phosphorus (2.5-4.5) mg/dL Magnesium (1.6-2.3) mg/dL Total Bilirubin (0.2-1.3) mg/dL AST (14-36) U/L ALT (4-34) U/L Alkaline Phosphatase (38-126) U/L Troponin I 1.350 H* (0.000-0.034) ng/mL Total Protein (6.3-8.2) g/dL Albumin (3.5-5.0) g/dL Lipase (23-300) U/L TSH (0.465-4.680) mIU/L HCG, Qual Not Detected Cortisol (3.1-22.4) UG/DL Influenza Type A (PCR) (Not Detectd) Influenza Type B (PCR) (Not Detectd) RSV (PCR) (Not Detectd) SARS-CoV-2 (PCR) (Not Detectd) Blood Type Blood Type Recheck Bld Type Recheck Status Antibody Screen Crossmatch Spec Expiration Date 05/31/24 05/31/24 05/31/24 Range/Units 03:50 04:45 04:55 WBC 207.8 H* (3.8-10.6) k/uL RBC 1.91 L (3.80-5.40) m/uL Hgb 6.6 L* (11.4-16.0) gm/dL Hct 18.6 L* (34.0-46.0) % MCV 97.4 (80.0-100.0) fL MCH 34.5 (25.0-35.0) pg MCHC 35.5 (31.0-37.0) g/dL RDW 16.4 H (11.5-15.5) % Plt Count 101 L (150-450) k/uL MPV 9.2 Neutrophils % (Manual) % Lymphocytes % (Manual) % Monocytes % (Manual) % Blast Cells % % Neutrophils # (Manual) (1.3-7.7) k/uL Lymphocytes # (Manual) (1.0-4.8) k/uL Monocytes # (Manual) (0-1.0) k/uL Blast Cells # (Man) (0) k/uL Nucleated RBCs (0-0) /100 WBC Manual Slide Review Pathologist Review Hypochromasia Slight Hypochromasia (manual) Poikilocytosis Slight Anisocytosis Slight Anisocytosis (manual) Macrocytosis Slight PT (10.0-12.5) sec INR (<1.2) APTT (22.0-30.0) sec D-Dimer (<0.60) mg/L FEU Sodium (137-145) mmol/L Potassium (3.5-5.1) mmol/L Chloride (98-107) mmol/L Carbon Dioxide (22-30) mmol/L Anion Gap mmol/L BUN (7-17) mg/dL Creatinine (0.52-1.04) mg/dL Est GFR (CKD-EPI)AfAm (>60 ml/min/1.73 sqM) Est GFR (CKD-EPI)NonAf (>60 ml/min/1.73 sqM) Glucose (74-99) mg/dL POC Glucose (mg/dL) (70-110) mg/dL POC Glu Second Watch Sergeant ID Lactic Ac Sepsis Rflx Y Plasma Lactic Acid Iker (0.7-2.0) mmol/L Calcium (8.4-10.2) mg/dL Ionized Calcium Aaliyah (4.5-5.3) mg/dL Phosphorus (2.5-4.5) mg/dL Magnesium (1.6-2.3) mg/dL Total Bilirubin (0.2-1.3) mg/dL AST (14-36) U/L ALT (4-34) U/L Alkaline Phosphatase (38-126) U/L Troponin I (0.000-0.034) ng/mL Total Protein (6.3-8.2) g/dL Albumin (3.5-5.0) g/dL Lipase 188 (23-300) U/L TSH (0.465-4.680) mIU/L HCG, Qual Cortisol (3.1-22.4) UG/DL Influenza Type A (PCR) (Not Detectd) Influenza Type B (PCR) (Not Detectd) RSV (PCR) (Not Detectd) SARS-CoV-2 (PCR) (Not Detectd) Blood Type Blood Type Recheck Bld Type Recheck Status Antibody Screen Crossmatch Spec Expiration Date 05/31/24 05/31/24 05/31/24 Range/Units 04:55 04:55 06:01 WBC (3.8-10.6) k/uL RBC (3.80-5.40) m/uL Hgb (11.4-16.0) gm/dL Hct (34.0-46.0) % MCV (80.0-100.0) fL MCH (25.0-35.0) pg MCHC (31.0-37.0) g/dL RDW (11.5-15.5) % Plt Count (150-450) k/uL MPV Neutrophils % (Manual) % Lymphocytes % (Manual) % Monocytes % (Manual) % Blast Cells % % Neutrophils # (Manual) (1.3-7.7) k/uL Lymphocytes # (Manual) (1.0-4.8) k/uL Monocytes # (Manual) (0-1.0) k/uL Blast Cells # (Man) (0) k/uL Nucleated RBCs (0-0) /100 WBC Manual Slide Review Pathologist Review Hypochromasia Hypochromasia (manual) Poikilocytosis Anisocytosis Anisocytosis (manual) Macrocytosis PT (10.0-12.5) sec INR (<1.2) APTT (22.0-30.0) sec D-Dimer (<0.60) mg/L FEU Sodium 134 L (137-145) mmol/L Potassium 1.1 L* (3.5-5.1) mmol/L Chloride 90 L (98-107) mmol/L Carbon Dioxide 34 H (22-30) mmol/L Anion Gap 10 mmol/L BUN 54 H (7-17) mg/dL Creatinine 3.41 H (0.52-1.04) mg/dL Est GFR (CKD-EPI)AfAm 16 (>60 ml/min/1.73 sqM) Est GFR (CKD-EPI)NonAf 14 (>60 ml/min/1.73 sqM) Glucose 152 H (74-99) mg/dL POC Glucose (mg/dL) (70-110) mg/dL POC Glu Second Watch Sergeant ID Lactic Ac Sepsis Rflx Plasma Lactic Acid Iker (0.7-2.0) mmol/L Calcium 5.7 L* (8.4-10.2) mg/dL Ionized Calcium Aaliyah 3.1 L* (4.5-5.3) mg/dL Phosphorus 3.2 (2.5-4.5) mg/dL Magnesium 0.7 L* (1.6-2.3) mg/dL Total Bilirubin (0.2-1.3) mg/dL AST (14-36) U/L ALT (4-34) U/L Alkaline Phosphatase (38-126) U/L Troponin I (0.000-0.034) ng/mL Total Protein (6.3-8.2) g/dL Albumin (3.5-5.0) g/dL Lipase (23-300) U/L TSH (0.465-4.680) mIU/L HCG, Qual Cortisol (3.1-22.4) UG/DL Influenza Type A (PCR) (Not Detectd) Influenza Type B (PCR) (Not Detectd) RSV (PCR) (Not Detectd) SARS-CoV-2 (PCR) (Not Detectd) Blood Type A Positive Blood Type Recheck A Pos Bld Type Recheck Status No Antibody Screen NEGATIVE Crossmatch See Detail Spec Expiration Date 06/03/20242300 Disposition Clinical Impression: 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 Specs Out of Hospital Transfer - Requested Specifics: Other Emergency Center (required specialized hematology care)
[2024-05-31 04:40] LABS: HGB 6.9 gm/dL (11.4-16.0); WBC 210.1 k/uL (3.8-10.6)
[2024-05-31 04:43] LABS: Calcium 5.9 mg/dL (8.4-10.2); Potassium 1.1 mmol/L (3.5-5.1)
[2024-05-31 04:44] LABS: INR 1.5 (<1.2); Partial Thromboplastin Time 32.4 sec (22.0-30.0); Prothrombin Time 15.3 sec (10.0-12.5)
[2024-05-31 05:21] LABS: Anisocytosis Slight; Hypochromasia Slight; MCH 34.5 pg (25.0-35.0); MCHC 35.5 g/dL (31.0-37.0); MCV 97.4 fL (80.0-100.0); Macrocytosis Slight; Mean Platelet Volume 9.2; Platelet Count 101 k/uL (150-450); Poikilocytosis Slight; RBC 1.91 m/uL (3.80-5.40); RDW 16.4 % (11.5-15.5)
[2024-05-31] MEDS: HYDROmorphone 0.5 MG/0.5 ML SYRINGE IVP STA (05:27)
[2024-05-31 05:34] LABS: Lymphocytes # (M) 48.32 k/uL (1.0-4.8); Monocytes # (M) 86.14 k/uL (0-1.0); Neutrophils # (M) 27.31 k/uL (1.3-7.7); Neutrophils % (M) 13 %
[2024-05-31 05:39] LABS: Anisocytosis (M) Present; Blast Cells # (M) 48.32 k/uL (0); Hypochromasia (M) Present; Nucleated Red Blood Cells 0 /100 WBC (0-0); Total Cells Counted 200
[2024-05-31 05:39] LABS: African American GFR (CKD) 16 (>60 ml/min/1.73 sqM); Anion Gap 10 mmol/L; Blood Urea Nitrogen 54 mg/dL (7-17); Carbon Dioxide 34 mmol/L (22-30); Chloride 90 mmol/L (98-107); Glucose 152 mg/dL (74-99); Non-African American GFR(CKD) 14 (>60 ml/min/1.73 sqM); Sodium 134 mmol/L (137-145)
[2024-05-31 05:41] LABS: HCT 18.6 % (34.0-46.0); HGB 6.6 gm/dL (11.4-16.0); WBC 207.8 k/uL (3.8-10.6)
[2024-05-31 05:56] LABS: Phosphorus 3.2 mg/dL (2.5-4.5)
--- NOTE | 2024-05-31 05:56 | CT ---
EXAMINATION TYPE: CT angio chest DATE OF EXAM: 05/31/2024 COMPARISON: NONE HISTORY: elevated d-dimer, >34. Pt presents to ER via EMS. Pt states she had been walking back from t he bathroom when she lost consciousness. Pt assumed to have fallen as she awoke on the floor. Pt marlo es any new pain, not currently on a blood thinner. Pt states 2 more losses of consciousness while lyi ng on the floor waiting for EMS. Pt GCS 15 upon arrival.H/O crohn's disease, lt oopherectomy & fallop yunior tube removed 2011, thryroid disorder. pt only got 52ml [id number] due to GFR of 14. CT DLP: 386.2 mGycm. Automated Exposure Control for Dose Reduction was Utilized. CONTRAST: CTA scan of the thorax is performed with IV Contrast, patient injected with 52 mL of Isovue 300, pulm onary embolism protocol. MIP Images are created on CT scanner and reviewed. FINDINGS: LUNGS: Suboptimal as there is motion artifact degradation, this limits evaluation particularly for hunt bcentimeter nodules. There is dependent consolidation/atelectasis in bilateral lower lobes. Some grou ndglass opacity centrally in both lungs is seen. No pleural effusion or pneumothorax is evident bilat erally. MEDIASTINUM: Suboptimal study with most dense contrast in the SVC. No central acute pulmonary embolis m. Suboptimal evaluation of more peripheral vessels due to heterogeneity and diminished bolus. Enlarg ed main pulmonary artery raises concern for underlying pulmonary artery hypertension measuring near 3 .7 cm. Mild cardiomegaly. Trace pericardial effusion. OTHER: Cholecystectomy clips are seen. Visualized portion of spleen is prominent. Some nonspecific va raz hypodense areas are noted. IMPRESSION: 1. Suboptimal study without central acute pulmonary embolism. 2. Mild cardiomegaly with mild bilateral alveolar edema felt present. Correlate for CHF exacerbation/ fluid overload state. [facility], , 05/31/2024 5:54 AM
[2024-05-31 06:05] LABS: Ionized Calcium 3.1 mg/dL (4.5-5.3)
[2024-05-31 06:06] LABS: Calcium 5.7 mg/dL (8.4-10.2); Potassium 1.1 mmol/L (3.5-5.1)
[2024-05-31 06:07] LABS: Magnesium 0.7 mg/dL (1.6-2.3)
[2024-05-31] MEDS: MAGNESIUM SULFATE-D5W PMX 1 GM in DEXTROSE/WATER 1 100ML.BAG IVPB SCH (06:14)
[2024-05-31] MEDS: POTASSIUM CHLORIDE 20 MEQ in WATER FOR INJECTION 1 100ML.BAG IVPB STA (06:14)
[2024-05-31] MEDS: CALCIUM GLUCONATE IN NACL 1 GM in SALINE 1 100ML.BAG IVPB ONE (06:15)
--- NOTE | 2024-05-31 06:28 | CT ---
EXAMINATION TYPE: CT abdomen pelvis w con DATE OF EXAM: 05/31/2024 HISTORY: elevated d-dimer, >34. Pt presents to ER via EMS. Pt states she had been walking back from t he bathroom when she lost consciousness. Pt assumed to have fallen as she awoke on the floor. Pt marlo es any new pain, not currently on a blood thinner. Pt states 2 more losses of consciousness while lyi ng on the floor waiting for EMS. Pt GCS 15 upon arrival.H/O crohn's disease, lt oopherectomy & fallop yunior tube removed 2011, thyroid disorder. pt only got 52ml [id number] due to GFR of 14. CT DLP: 1231.7mGycm Automated Exposure Control for Dose Reduction was Utilized. CONTRAST: CT scan of the abdomen and pelvis is performed with IV Contrast, patient injected with 52 mL of Isovu e 370. COMPARISON: None. FINDINGS: LUNG BASES: Please see same-day CT chest for complete details on the lung bases. LIVER/GB: Cholecystectomy clips are seen. PANCREAS: No significant abnormality is seen. SPLEEN: Splenomegaly is present measuring 16.9 cm long axis axial image 24. There are vague geographi c areas of low-attenuation throughout the splenic parenchyma. Suspect areas of focal fatty infiltrati on. Mass is less likely but not entirely excluded. ADRENALS: No significant abnormality is seen. KIDNEYS: There is 3 mm nonobstructing calculus in the right kidney midpole level coronal image 59. No hydronephrosis seen bilaterally. BOWEL: Suboptimal evaluation without enteric contrast. No abnormal small or large bowel dilatation. UTERUS/ADNEXA: No gross abnormality seen. LYMPH NODES: No greater than 1cm abdominal or pelvic lymph nodes are appreciated. OSSEOUS STRUCTURES: Multilevel facet arthropathy in the lumbar spine. OTHER: No significant additional abnormality is seen. IMPRESSION: 1. No significant acute finding is seen to account for patient's clinical symptoms. 2. Splenomegaly with possible splenic lesions, nonemergent follow up advised to further evaluate. [facility], , 05/31/2024 6:26 AM
[2024-05-31 06:37] VITALS: BP 101/68; PULSE 104; RESP 20; TEMP 99.6
== END 2024-05-31 06:35 ==
LOC: EC 02:59
CPT/HCPCS: 36415; 71275; 74177; 80048; 80053; 82330; 82533; 83605; 83690; 83735; 84100; 84443; 84484; 84703; 85025; 85379; 85610; 85730; 86850; 86900; 86901; 87040; 87636; 93005; 96365; 96366; 96375; 99291

== ENCOUNTER → 2024-12-11 | Outpatient (CLI) | payer BC ==
[2024-12-11 09:45] VITALS: BP 148/92; PULSE 72; RESP 16; TEMP 98
--- NOTE | 2024-12-11 10:26 | P.HPOB ---
History of Present Illness H&P Date: 12/11/24 Chief Complaint: The patient is here for her routine gynecologic exam and ma mmogram. This is a 59-year-old G1, P1 with an LMP of 2022. The patient is without gynecologic complaints and denies any postmenopausal bleeding. Review of Systems Patient has had a net weight loss of 54 pounds over 3 years. She was down to 160 following her diagnosis of AML in 2023, but has gained some weight back. She likes the weight she is at now. She denies respiratory, cardiac, or GI problems. Past Medical History Past Medical History: Asthma, Cancer, Deep Vein Thrombosis (DVT), Hyperlipidemia, Osteoarthritis (OA), Pulmonary Embolus (PE), Skin Disorder, Thyroid Disorder Additional Past Medical History / Comment(s): Acute myeloid leukemia (AML) diagnosed in 2023. crohn's disease, migraine headaches, varicose veins, oral lichen planus, lichen planus rash on back, thyroid nodule. 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 History of Any Multi-Drug Resistant Organisms: None Reported Past Surgical History: Breast Surgery, Cholecystectomy, Joint Replacement, Orthopedic Surgery Additional Past Surgical History / Comment(s): lt oophorectomy and fallopian tube removed 2011, varicose vein surgery left leg,lasik. Colonoscopy 2020(next after 3yr). BILAT KNEE REPLACEMENT. BILATERAL CARPAL TUNNEL SURGERY. breast bx on lft. Right arm surgery. IVC filter placed 2023. Colonoscopy 2022(next after 2yr). Past Anesthesia/Blood Transfusion Reactions: No Reported Reaction Past Psychological History: No Psychological Hx Reported Smoking Status: Never smoker Past Alcohol Use History: None Reported Past Drug Use History: None Reported Additional History: She has been since 1994 and retired from [employer] in 2023. - Past Family History Father Family Medical History: No Reported History Additional Family Medical History / Comment(s): Heart disease Mother Family Medical History: Cancer, Myocardial Infarction ([place]) Additional Family Medical History / Comment(s): Grandmother had diabetes. Medications and Allergies Home Medications Medication Instructions Recorded Confirmed Type Ibuprofen [Motrin] 800 mg PO DAILY PRN 09/18/14 12/11/24 History Loratadine [Claritin] 10 mg PO DAILY 03/29/17 12/11/24 History Thyroid,Pork [[place] Thyroid] 90 mg PO QAM 03/29/17 12/11/24 History Beclomethasone Dip 80 Mcg/Puff 1 puff INHALATION DAILY PRN 06/19/18 12/11/24 History [Qvar 80 mcg] Cholecalciferol [Vitamin D3 (25 125 mcg PO DAILY 09/30/20 12/11/24 History Mcg = 1000 Iu)] Apixaban [Eliquis] 5 mg PO BID 12/11/24 12/11/24 History Magnesium Chloride [Mag64] 64 mg PO DAILY 12/11/24 12/11/24 History Potassium Chloride 1 cap PO DAILY 12/11/24 12/11/24 History Vitamin B Complex 1 cap PO DAILY 12/11/24 12/11/24 History aMILoride HCL 5 mg PO DAILY 12/11/24 12/11/24 History calcitrioL 0.25 mcg PO DAILY 12/11/24 12/11/24 History Allergies Allergy/AdvReac Type Severity Reaction Status Date / Time aspirin Allergy Dyspnea Verified 12/11/24 09:39 morphine Allergy Itching Unverified 12/11/24 09:39 nickel Allergy Rash/Hives Unverified 12/11/24 09:39 Penicillins Allergy Rapid Verified 12/11/24 09:39 Heart Rate, anxiety attack Exam Vital Signs Temp Pulse Resp BP Pulse Ox 12/11/24 09:43 98 F 72 16 148/92 98 Intake and Output 12/10/24 12/11/24 12/11/24 22:59 06:59 14:59 Other: Weight 94.347 kg Height 5 feet 7 inches, weight 208 pounds, BMI 32.6. This is a well-developed well-nourished white female who is alert and oriented times 3 in no acute distress. HEENT: Within normal limits. NECK: Supple without mass or thyromegaly. CHEST AND LUNGS: Clear to auscultation. HEART: Regular rate and rhythm. BREASTS: Are without mass or discharge. AXILLARY EXAM: Negative for adenopathy. BACK: Negative for CVA tenderness. ABDOMEN: Soft, nontender, without palpable masses. PELVIC EXAM: Normal external genitalia with mild atrophy. Cervix and vagina appear normal with mild atrophy. There is no unusual discharge. There is no evidence of prolapse. The uterus is midposition, nongravid size and nontender. There are no palpable adnexal masses or tenderness. RECTAL EXAM: Rectovaginal exam is negative for mass or tenderness and is negative for occult blood. EXTREMITIES: Nontender. CT scan of the abdomen and pelvis was done on 05/31/2024 and the uterus and adnexal areas were unremarkable. IMPRESSION: 1. 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 2. Multiple medical problems including AML which was recently diagnosed. PLAN: 1. Pap smear cotest was performed. 2. Self breast awareness was discussed with the patient. We have also discussed symptoms associated with inflammatory breast cancer. 3. Screening mammogram will be done today. 4. Osteoporosis prevention was discussed. I have stressed the importance of adequate calcium, vitamin D and regular exercise. Recommended amounts of calcium and vitamin D were also discussed. I have recommended a bone density test since she is at greater risk for falling secondary to her AML. The patient is declining this at this time and states she will do it next year. 5. She was advised to return in one year for her annual well woman exam.
--- NOTE | 2024-12-11 12:17 | MM ---
Reason for Exam: Screening (asymptomatic). Last mammogram was performed 2 year(s) and 8 month(s) ago. Patient History: Menarche at age 17. First Full-Term at age 36. Late child-bearing (after 31). Hormonal Contraceptives for 18 years from age 25 until age 43. 11/02/2007, Benign Excisional Biopsy on the left side. Risk Values: Prabha 5 year model risk: 2.0%. NCI Lifetime model risk: 11.2%. Prior Study Comparison: 04/15/2022 Bilateral MG screening mammo w CAD, [facility]. 04/26/2022 Right MG work up mamm w CAD RT, [facility]. 11/10/2022 Right MG diagnostic mammo RT w CAD, [facility]. Tissue Density: There are scattered areas of fibroglandular density. Findings: Analyzed By CAD. There is no suspicious group of microcalcifications or new suspicious mass in either breast. Overall Assessment: Negative, BI-RAD 1 Management: Screening Mammogram of both breasts in 1 year. . Patient should continue monthly self-breast exams. A clinical breast exam by your physician is recommended on an annual basis. This exam should not preclude additional follow-up of suspicious palpable abnormalities. Note on Prabha scores and lifetime risk: 1. A Prabha score greater than 3% is considered moderate risk. If this is the case, consider specialist referral to assess eligibility for a risk reducing agent. 2. If overall lifetime risk for the development of breast cancer is 20% or higher, the patient may qualify for future screening with alternating mammogram and breast MRI. [facility], , 12/11/2024 12:14 PM. Electronically signed and approved by: Everette Bocanegra M.D. [facility]
== END ==
LOC: WWCWWP 09:21
PROVIDERS: ATTEND Obstetrics & Gynecology
DX: Z01.419 Encounter for gynecological examination (general) (routine) without abnormal findings (principal); Z12.31 Encounter for screening mammogram for malignant neoplasm of breast; C92.00 Acute myeloblastic leukemia, not having achieved remission; Z88.0 Allergy status to penicillin; Z88.5 Allergy status to narcotic agent; Z88.6 Allergy status to analgesic agent; Z88.8 Allergy status to other drugs, medicaments and biological substances
CPT/HCPCS: 77067

== ENCOUNTER 2025-02-12 17:14 | Inpatient (IN) | payer BC ==
[2025-02-12] MEDS ORDERED: VANCOMYCIN IV PER PHARMACY 1 EACH MISC MISCELLANE PRN (17:39)
--- NOTE | 2025-02-12 17:48 | ED ---
General Adult HPI - General Chief complaint: Arrhythmia/Palpitations Stated complaint: Irreg Lab/Nausea Source: patient, RN notes reviewed, old records reviewed Mode of arrival: ambulatory Limitations: no limitations - History of Present Illness Initial comments: This is a 59-year-old female with a past medical history significant for recurrent AML. Patient is on chemo currently. Patient states that she feels her heart racing is having a little bit of chest pain. Patient also states she is having shortness of breath. Patient also states she is feeling extremely cold but when she got to the emergency department she could feel her heart racing. Patient denies any significant cough. Patient has abdominal pain patient has nausea vomiting diarrhea. Patient denies any dysuria hematuria urinary frequency. Patient Nuys any wounds lesions or rashes. - Related Data Home Medications Medication Instructions Recorded Confirmed Thyroid,Pork [Fillmore Thyroid] 90 mg PO DAILY 03/29/17 02/12/25 Apixaban [Eliquis] 5 mg PO BID 12/11/24 02/12/25 Magnesium Chloride [Mag64] 64 mg PO TID 12/11/24 02/12/25 aMILoride HCL 5 mg PO DAILY 12/11/24 02/12/25 calcitrioL 0.25 mcg PO MOWEFR 12/11/24 02/12/25 Acetaminophen Tab [Tylenol] 650 mg PO Q6H PRN 02/12/25 02/12/25 Acyclovir [Zovirax] 400 mg PO BID 02/12/25 02/12/25 Albuterol Nebulized [Ventolin 2.5 mg INHALATION RT-Q6H PRN 02/12/25 02/12/25 Nebulized] EPINEPHrine (Auto Inject) [Epipen] 0.3 mg IM ONCE PRN 02/12/25 02/12/25 Fluconazole [Diflucan] 200 mg PO DAILY 02/12/25 02/12/25 Levofloxacin [Levaquin] 500 mg PO DAILY 02/12/25 02/12/25 Loratadine-Pseudoeph 10-240 mg 1 tab PO DAILY 02/12/25 02/12/25 [Claritin-D 24 Hour] Pantoprazole Sodium [Protonix] 40 mg PO AC-BID 02/12/25 02/12/25 Potassium Chloride ER [K-Dur 20] 40 meq PO BID 02/12/25 02/12/25 Venetoclax [Venclexta] 200 mg PO DAILY 02/12/25 02/12/25 Vitamin B Complex W/Vitamin C 1 tab PO DAILY 02/12/25 02/12/25 Vitamin D3(Unknown Dose) 1 tab PO DAILY 02/12/25 02/12/25 allopurinoL [Zyloprim] 300 mg PO DAILY 02/12/25 02/12/25 oxyCODONE HCL [OxyIR] 5 mg PO Q4H PRN 02/12/25 02/12/25 Allergies Allergy/AdvReac Type Severity Reaction Status Date / Time adhesive tape Allergy Rash/Hives Verified 02/12/25 18:01 aspirin Allergy Dyspnea Verified 02/12/25 18:01 bacitracin Allergy Rash/Hives Verified 02/12/25 18:01 [From Polysporin(bacitracin base)] morphine Allergy Itching Verified 02/12/25 18:01 nickel Allergy Rash/Hives Verified 02/12/25 18:01 Penicillins Allergy Rapid Verified 02/12/25 18:01 Heart Rate, anxiety attack polymyxin B Allergy Rash/Hives Verified 02/12/25 18:01 [From Polysporin(bacitracin base)] Review of Systems ROS Statement: Those systems with pertinent positive or pertinent negative responses have been documented in the HPI. ROS Other: All systems not noted in ROS Statement are negative. Past Medical History Past Medical History: Asthma, Cancer, Deep Vein Thrombosis (DVT), Hyperlipidemia, Osteoarthritis (OA), Pulmonary Embolus (PE), Skin Disorder, T hyroid Disorder Additional Past Medical History / Comment(s): Acute myeloid leukemia (AML) diagnosed in 2023. crohn's disease, migraine headaches, varicose veins, oral lichen planus, lichen planus rash on back, thyroid nodule. 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 History of Any Multi-Drug Resistant Organisms: None Reported Past Surgical History: Breast Surgery, Cholecystectomy, Joint Replacement, Orthopedic Surgery Additional Past Surgical History / Comment(s): lt oophorectomy and fallopian tube removed 2011, varicose vein surgery left leg,lasik. Colonoscopy 2020(next after 3yr). BILAT KNEE REPLACEMENT. BILATERAL CARPAL TUNNEL SURGERY. breast bx on lft. Right arm surgery. IVC filter placed 2023. Colonoscopy 2022(next after 2yr). Past Anesthesia/Blood Transfusion Reactions: No Reported Reaction Past Psychological History: No Psychological Hx Reported Smoking Status: Never smoker Past Alcohol Use History: None Reported Past Drug Use History: None Reported - Past Family History Father Family Medical History: No Reported History Additional Family Medical History / Comment(s): Heart disease Mother Family Medical History: Cancer, Myocardial Infarction (PA) Additional Family Medical History / Comment(s): Grandmother had diabetes. General Exam - General Exam Comments Initial Comments: GENERAL: Patient is well-developed and well-nourished. Patient is nontoxic and well- hydrated and is in mild distress. ENT: Neck is soft and supple. No significant lymphadenopathy is noted. Oropharynx is clear. Moist mucous membranes. Neck has full range of motion without eliciting any pain. EYES: The sclera were anicteric and conjunctiva were pink and moist. Extraocular movements were intact and pupils were equal round and reactive to light. Eyelids were unremarkable. PULMONARY: Unlabored respirations. Good breath sounds bilaterally. No audible rales rhonchi or wheezing was noted. CARDIOVASCULAR: Patient is tachycardic with a regular rate at about 130 beats a minute ABDOMEN: Soft and nontender with normal bowel sounds. SKIN: Skin is clear with no lesions or rashes and otherwise unremarkable. NEUROLOGIC: Patient is alert and oriented x3. Cranial nerves II through XII are grossly intact. Motor and sensory are also intact. Normal speech, volume and content. Symmetrical smile. MUSCULOSKELETAL: Normal extremities with adequate strength and full range of motion. LYMPHATICS: No significant lymphadenopathy is noted PSYCHIATRIC: Normal psychiatric evaluation. Limitations: no limitations Course Vital Signs 02/12/25 02/12/25 02/12/25 17:21 18:45 19:30 Temperature 97.8 F 100.4 F H 102.1 F H Pulse Rate 150 H 129 H 115 H Respiratory 24 20 20 Rate Blood Pressure 107/77 122/75 108/70 O2 Sat by Pulse 99 96 96 Oximetry 02/12/25 20:10 Temperature 99.0 F Pulse Rate 106 H Respiratory 19 Rate Blood Pressure 108/73 O2 Sat by Pulse 96 Oximetry Medical Decision Making - Medical Decision Making EKG is interpreted by myself and EKG shows sinus tachycardia 133 bpm NJ interval 141 QRS of 76 QT interval 399 QTc is 377. Patient's EKG shows no ST segment elevation or depression. Patient's ideal body weight is 61 kg Was pt. sent in by a medical professional or institution (, T[facility], BODY [employer]KER, urgent care, hospital, or [facility]...) When possible be specific @ -No Did you speak to anyone other than the patient for history (EMS, parent, family, police, friend...)? What history was obtained from this source @ -No Did you review nursing and triage notes (agree or disagree)? Why? @ -I reviewed and agree with nursing and triage notes Were old charts reviewed (outside hosp., previous admission, EMS record, old EKG, old radiological studies, urgent care reports/EKG's, [facility] records)? Report findings @ -No old charts were reviewed Differential Diagnosis? @ -Differential Fever: Pneumonia, viral URI, endocarditis, myocarditis, pericarditis, otitis, sinusitis, peritonsillar Abscess, retropharyngeal Abscess, epiglottitis, peritonitis, appendicitis, Lulu cystitis, diverticulitis, hepatitis, colitis, UTI, PID, TOA, pyelonephritis, prostatitis, epididymitis, meningitis, encephalitis, pulmonary embolism, CVA, thyroid storm, pancreatitis, adrenal crisis, cavernous sinus thrombosis, this is not meant to be an all-inclusive list. EKG interpreted by me (3pts min.). @ -As above X-rays interpreted by me (1pt min.). @ -Chest x-ray shows no acute abnormality CT interpreted by me (1pt min.). @ -None done U/S interpreted by me (1pt. min.). @ -None done What testing was considered but not performed or refused? (CT, X-rays, U/S, labs)? Why? @ -None What meds were considered but not given or refused? Why? @ -None Did you discuss the management of the patient with other professionals (professionals i.e. TERE Ritchie, BODY MAKER, lab, RT, psych nurse, high school social studies teacher, knit goods washer, teacher, water resources technical officer, case worker)? Give summary @ -I spoke with [facility] hospitalist agreed admit the patient admit the patient and I consulted oncology. I also spoke with oncology. Was smoking cessation discussed for >3mins.? @ -No Was critical care preformed (if so, how long)? @ -No Were there social determinants of health that impacted care today? How? (Homel essness, low income, unemployed, alcoholism, drug addiction, transportation, low edu. Level, literacy, decrease access to med. care, detention, rehab)? @ -No Was there de-escalation of care discussed even if they declined (Discuss DNR or withdrawal of care, Hospice)? DNR status @ -No What co-morbidities impacted this encounter? (DM, HTN, Smoking, COPD, CAD, Cancer, CVA, ARF, Chemo, Hep., AIDS, mental health diagnosis, sleep apnea, morbid obesity)? @ -None Was patient admitted / discharged? Hospital course, mention meds given and route, prescriptions, significant lab abnormalities, going to OR and other pertinent info. @ -Patient came in with a high fever and history of chemotherapy and recurrent AML. Patient was given Tylenol Motrin immediately to bring on the fever and patient was given cefepime and vancomycin Undiagnosed new problem with uncertain prognosis? @ -No Drug Therapy requiring intensive monitoring for toxicity (Heparin, Nitro, Insulin, Cardizem)? @ -No Were any procedures done? @ -No Diagnosis/symptom? @ -Neutropenic fever Acute, or Chronic, or Acute on Chronic? @ -Acute Uncomplicated (without systemic symptoms) or Complicated (systemic symptoms)? @ -Complicated Side effects of treatment? @ -No Exacerbation, Progression, or Severe Exacerbation? @ -No Poses a threat to life or bodily function? How? (Chest pain, [place], PA, pneumonia, PE, COPD, DKA, ARF, appy, cholecystitis, CVA, Diverticulitis, Homicidal, Suicidal, threat to staff... and all critical care pts) @ -Yes this can lead to sepsis and endorgan dysfunction - Lab Data Result diagrams: 02/12/25 17:58 02/12/25 17:58 Lab Results 02/12/25 02/12/25 02/12/25 Range/Units 17:58 17:58 17:58 WBC 2.07 L (4.50-10.00) 10*3/uL RBC 2.74 L (4.10-5.20) 10*6/uL Hgb 7.9 L (12.0-15.0) g/dL Hct 23.5 L (37.2-46.3) % MCV 85.8 (80.0-97.0) fL MCH 28.8 (27.0-32.0) pg MCHC 33.6 (32.0-37.0) g/dL Plt Count 31 L (140-440) 10*3/uL MPV 10.8 (9.5-12.2) fL Immature Gran % (Auto) 4.6 % Band Neuts % (Manual) 5 % Lymphocytes % (Manual) 88 % Monocytes % (Manual) 7 % Eosinophils % (Manual) 1 % Immature Gran # 0.14 H (0.00-0.04) 10*3/uL Neutrophils # BODY [employer]KER Lymphocytes # (Manual) 1.82 (1.0-4.8) k/uL Monocytes # (Manual) 0.14 (0-1.0) k/uL Eosinophils # (Manual) 0.02 (0-0.7) k/uL Nucleated RBCs 46 H (0-0) /100 WBC Manual Slide Review Performed Reactive Lymphocytes Present Large Platelets Present Immature Plt Fraction 19.8 H (1.1-6.1) % Polychromasia Present Hypochromasia (manual) Present Poikilocytosis (manual Present Anisocytosis (manual) Present PT 12.9 H (10.0-12.5) sec INR 1.2 H (<1.2) APTT 29.4 (22.0-30.0) sec Sodium 134 L (137-145) mmol/L Potassium 4.8 (3.5-5.1) mmol/L Chloride 97 L (98-107) mmol/L Carbon Dioxide 22 (22-30) mmol/L Anion Gap 15 mmol/L BUN 18 H (7-17) mg/dL Creatinine 1.30 H (0.52-1.04) mg/dL Est GFR (CKD-EPI)AfAm 52 (>60 ml/min/1.73 sqM) Est GFR (CKD-EPI)NonAf 46 (>60 ml/min/1.73 sqM) Glucose 136 H (74-99) mg/dL Plasma Lactic Acid Iker (0.7-2.0) mmol/L Calcium 9.2 (8.4-10.2) mg/dL Total Bilirubin 0.9 (0.2-1.3) mg/dL AST 19 (14-36) U/L ALT 12 (4-34) U/L Alkaline Phosphatase 143 H (38-126) U/L Total Protein 7.8 (6.3-8.2) g/dL Albumin 4.6 (3.5-5.0) g/dL Urine Color Urine Appearance (Clear) Urine pH (5.0-8.0) Ur Specific [place] (1.001-1.035) Urine Protein (Negative) Urine Glucose (UA) (Negative) Urine Ketones (Negative) Urine Blood (Negative) Urine Nitrite (Negative) Urine Bilirubin (Negative) Urine Urobilinogen (<2.0) mg/dL Ur Leukocyte Esterase (Negative) Urine RBC (0-5) /hpf Urine WBC (0-5) /hpf Ur Squamous Epith Cells (0-4) /hpf Urine Bacteria (None) /hpf Hyaline Casts (0-2) /lpf 02/12/25 02/12/25 Range/Units 17:58 20:20 WBC (4.50-10.00) 10*3/uL RBC (4.10-5.20) 10*6/uL Hgb (12.0-15.0) g/dL Hct (37.2-46.3) % MCV (80.0-97.0) fL MCH (27.0-32.0) pg MCHC (32.0-37.0) g/dL Plt Count (140-440) 10*3/uL MPV (9.5-12.2) fL Immature Gran % (Auto) % Band Neuts % (Manual) % Lymphocytes % (Manual) % Monocytes % (Manual) % Eosinophils % (Manual) % Immature Gran # (0.00-0.04) 10*3/uL Neutrophils # Lymphocytes # (Manual) (1.0-4.8) k/uL Monocytes # (Manual) (0-1.0) k/uL Eosinophils # (Manual) (0-0.7) k/uL Nucleated RBCs (0-0) /100 WBC Manual Slide Review Reactive Lymphocytes Large Platelets Immature Plt Fraction (1.1-6.1) % Polychromasia Hypochromasia (manual) Poikilocytosis (manual Anisocytosis (manual) PT (10.0-12.5) sec INR (<1.2) APTT (22.0-30.0) sec Sodium (137-145) mmol/L Potassium (3.5-5.1) mmol/L Chloride (98-107) mmol/L Carbon Dioxide (22-30) mmol/L Anion Gap mmol/L BUN (7-17) mg/dL Creatinine (0.52-1.04) mg/dL Est GFR (CKD-EPI)AfAm (>60 ml/min/1.73 sqM) Est GFR (CKD-EPI)NonAf (>60 ml/min/1.73 sqM) Glucose (74-99) mg/dL Plasma Lactic Acid Iker 2.0 (0.7-2.0) mmol/L Calcium (8.4-10.2) mg/dL Total Bilirubin (0.2-1.3) mg/dL AST (14-36) U/L ALT (4-34) U/L Alkaline Phosphatase (38-126) U/L Total Protein (6.3-8.2) g/dL Albumin (3.5-5.0) g/dL Urine Color Yellow Urine Appearance Clear (Clear) Urine pH 7.5 (5.0-8.0) Ur Specific [place] 1.014 (1.001-1.035) Urine Protein Trace H (Negative) Urine Glucose (UA) Negative (Negative) Urine Ketones Negative (Negative) Urine Blood Trace H (Negative) Urine Nitrite Negative (Negative) Urine Bilirubin Negative (Negative) Urine Urobilinogen <2.0 (<2.0) mg/dL Ur Leukocyte Esterase Negative (Negative) Urine RBC 5 (0-5) /hpf Urine WBC 3 (0-5) /hpf Ur Squamous Epith Cells <1 (0-4) /hpf Urine Bacteria Rare H (None) /hpf Hyaline Casts 1 (0-2) /lpf Disposition Clinical Impression: Neutropenic fever Disposition: ADMITTED IP TO THIS HOSP Referrals: Macario Mario [Primary Care Provider] - 1-2 days Time of Disposition: 20:35
[2025-02-12] MEDS: IBUPROFEN 600 MG TAB PO STA (17:53)
[2025-02-12] MEDS: ACETAMINOPHEN TAB 500 MG TAB PO STA (17:53)
[2025-02-12] MEDS: LACTATED RINGERS 1,000 ML IV SCH (17:56)
[2025-02-12] MEDS: CEFEPIME 2 GM in SODIUM CHLORIDE 0.9% 100 ML IVPB STA (17:57)
[2025-02-12 18:08] LABS: HCT 23.5 % (37.2-46.3); HGB 7.9 g/dL (12.0-15.0); Immature Platelet Fraction 19.8 % (1.1-6.1); MCH 28.8 pg (27.0-32.0); MCHC 33.6 g/dL (32.0-37.0); MCV 85.8 fL (80.0-97.0); Mean Platelet Volume 10.8 fL (9.5-12.2); RBC 2.74 10*6/uL (4.10-5.20)
[2025-02-12 18:17] LABS: INR 1.2 (<1.2); Partial Thromboplastin Time 29.4 sec (22.0-30.0); Prothrombin Time 12.9 sec (10.0-12.5)
[2025-02-12 18:20] LABS: ALT 12 U/L (4-34); AST 19 U/L (14-36); African American GFR (CKD) 52 (>60 ml/min/1.73 sqM); Albumin 4.6 g/dL (3.5-5.0); Alkaline Phosphatase 143 U/L (38-126); Anion Gap 15 mmol/L; Blood Urea Nitrogen 18 mg/dL (7-17); Calcium 9.2 mg/dL (8.4-10.2); Carbon Dioxide 22 mmol/L (22-30); Chloride 97 mmol/L (98-107); Glucose 136 mg/dL (74-99); Non-African American GFR(CKD) 46 (>60 ml/min/1.73 sqM); Potassium 4.8 mmol/L (3.5-5.1); Sodium 134 mmol/L (137-145); Total Bilirubin 0.9 mg/dL (0.2-1.3); Total Protein 7.8 g/dL (6.3-8.2)
[2025-02-12] MEDS: ONDANSETRON 4 MG/2 ML VIAL IVP STA (18:34)
[2025-02-12] MEDS: VANCOMYCIN 1,500 MG in SODIUM CHLORIDE 0.9% 500 ML 500 ML IVPB STA (18:40)
--- NOTE | 2025-02-12 18:56 | XR ---
EXAMINATION TYPE: XR chest 2V DATE OF EXAM: 02/12/2025 6:12 PM COMPARISON: None. CLINICAL INDICATION: Female, 59 years old with history of Fever, TECHNIQUE: XR chest 2V view(s) obtained. FINDINGS: The heart size is normal. The pulmonary vasculature is normal. The lungs are clear. IMPRESSION: 1. No acute pulmonary process. [facility], , 02/12/2025 6:54 PM
[2025-02-12 19:40] LABS: Anisocytosis (M) Present; Band Neutrophils % 5 %; Eosinophils # (M) 0.02 k/uL (0-0.7); Lymphocytes # (M) 1.82 k/uL (1.0-4.8); Monocytes # (M) 0.14 k/uL (0-1.0); Nucleated Red Blood Cells 46 /100 WBC (0-0); Poikilocytosis (M) Present; Polychromasia Present; Total Cells Counted 200; WBC 2.07 10*3/uL (4.50-10.00)
[2025-02-12 19:41] LABS: Hypochromasia (M) Present; Large Platelets Present; Platelet Count 31 10*3/uL (140-440); Reactive Lymphocytes Present
[2025-02-12 20:32] LABS: Appearance,Urine Clear (Clear); Bacteria,Urine Rare /hpf; Bilirubin,Urine Negative (Negative); Blood,Urine Trace (Negative); Color,Urine Yellow; Glucose,Urine (UA) Negative (Negative); Hyaline Casts,Urine 1 /lpf (0-2); Ketones,Urine Negative (Negative); Leukocyte Esterase,Urine Negative (Negative); Nitrite,Urine Negative (Negative); PH, Urine 7.5 (5.0-8.0); Protein,Urine Trace (Negative); RBC,Urine 5 /hpf (0-5); Specific Gravity,Urine 1.014 (1.001-1.035); Squamous Epithelial Cell,Urine <1 /hpf (0-4); Urobilinogen,Urine <2.0 mg/dL (<2.0); WBC,Urine 3 /hpf (0-5)
[2025-02-12] MEDS: SODIUM CHLORIDE 0.9% 1,000 ML IV ONE (21:53)
[2025-02-12] MEDS ORDERED: ALBUTEROL NEBULIZED 2.5 MG/3 ML INHALATION PRN (22:27)
[2025-02-12] MEDS: ONDANSETRON 4 MG/2 ML VIAL IVP PRN (23:06)
[2025-02-12] MEDS: APIXABAN 5 MG TAB PO SCH (23:06)
[2025-02-13] MEDS: CEFEPIME 2 GM in SODIUM CHLORIDE 0.9% 100 ML IVPB SCH (00:16)
[2025-02-13] MEDS: ACETAMINOPHEN TAB 325 MG TAB PO PRN (00:17)
[2025-02-13] MEDS: HYDROmorphone 1 MG/ML 1 ML SYRINGE IVP PRN ×2 (02:33→06:20)
[2025-02-13] MEDS: IBUPROFEN 600 MG TAB PO PRN (06:13)
[2025-02-13 07:07] LABS: African American GFR (CKD) 51 (>60 ml/min/1.73 sqM); Non-African American GFR(CKD) 44 (>60 ml/min/1.73 sqM)
[2025-02-13] MEDS: PANTOPRAZOLE 40 MG TABLET PO SCH (08:15)
[2025-02-13] MEDS: SPIRONOLACTONE 25 MG TAB PO SCH (08:15)
[2025-02-13] MEDS: ACYCLOVIR 200 MG CAP PO SCH (08:15)
[2025-02-13] MEDS: SODIUM CHLORIDE 0.9% 1,000 ML IV ONE ×2 (10:02→15:20)
[2025-02-13] MEDS: LEVOFLOXACIN 500 MG TAB PO SCH (11:05)
[2025-02-13] MEDS: VANCOMYCIN 1,500 MG in SODIUM CHLORIDE 0.9% 500 ML 500 ML IVPB SCH (11:06)
--- NOTE | 2025-02-13 12:04 | P.CRDCN ---
History of Present Illness History of present illness: HISTORY OF PRESENT ILLNESS: This is a 59-year-old female with a past medical history significant for acute myeloid leukemia, Crohn's disease, thyroid nodule, pulmonary embolism, IVC filte r. 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 We have been asked to see the patient in consultation for chest pain. Patient examined at the bedside in the emergency room. Patient's family is present. Patient states that she has been under the care of a oncologist at [place]. She has a history of acute myeloid leukemia that was in remission in September and was found to have come back in December of this year. Feeling ember also reports patient has a history of brain hemorrhage and her Eliquis was stopped for a little while and then restarted. Patient presented to the hospital for chief complaint of feeling unwell. She has been running a fever. She is also diaphoretic. Patient is hypotensive this morning with a systolic blood pressure in the 70s. DIAGNOSTICS: - EKG reveals sinus tachycardia with no signs of acute ischemia. - Chest xray negative for acute process. - Laboratory data: WBC 2.07. Hemoglobin 7.9. Platelet count 31. Sodium 134. Potassium 4.8. BUN 18. Creatinine 1.30. Troponin negative x 1. - Current home cardiac medications include Eliquis 5 mg twice a day. - No previous echocardiogram, stress test, or cardiac catheterization available in EMR for review REVIEW OF SYSTEMS: At the time of my exam: CONSTITUTIONAL: Reports fever HEENT: Denies blurred vision, vision changes, or eye pain. Denies hemoptysis CARDIOVASCULAR: Denies chest pain. Denies orthopnea. Denies PND. Denies palpitations RESPIRATORY: Denies shortness of breath. GASTROINTESTINAL: Denies abdominal pain. Denies nausea or vomiting. HEMATOLOGIC: Denies bleeding disorders. GENITOURINARY: Denies any blood in urine. SKIN: Denies pruitis. Denies rash. PHYSICAL EXAM: VITAL SIGNS: Reviewed. GENERAL: Well-developed in no acute distress. HEENT: Head is normocephalic. Pupils are equal, round. Sclerae anicteric. Mucous membranes of the mouth are moist. Neck supple. No JVD or thyromegaly LUNGS: Respirations even and unlabored. Lungs essentially clear to auscultation bilaterally. HEART: Tachycardic. Regular rate and rhythm. S1 and S2 heard. ABDOMEN: Soft. Nondistended. Nontender. EXTREMITIES: Normal range of motion. No clubbing or cyanosis. Peripheral pulses intact. No lower extremity edema NEUROLOGIC: Awake and alert. Oriented x 3. ASSESSMENT: Chest pain, ACS ruled out Neutropenic fever Sepsis Sinus tachycardia Hypotension with systolic blood pressures in the 70s Acute myeloid leukemia Pancytopenia History of Crohn's disease History of thyroid nodule History of pulmonary embolism on Eliquis History of IVC filter placement History of brain hemorrhage Obesity: BMI 30.7 PLAN: An acute coronary event has been ruled out Discontinue Eliquis secondary to thrombocytopenia Discontinue Aldactone secondary to hypotension Give 1 L normal saline fluid bolus Blood cultures drawn. Await results. Recommend infectious disease consultation No further inpatient recommendations from a cardiac standpoint Further management per primary medicine Nurse practitioner note has been reviewed by physician. 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 Past Medical History Past Medical History: Asthma, Cancer, Deep Vein Thrombosis (DVT), Hyperlipidemia, Osteoarthritis (OA), Pulmonary Embolus (PE), Skin Disorder, Thyroid Disorder Additional Past Medical History / Comment(s): Acute myeloid leukemia (AML) diagnosed in 2023. crohn's disease, migraine headaches, varicose veins, oral lichen planus, lichen planus rash on back, thyroid nodule. 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 History of Any Multi-Drug Resistant Organisms: None Reported Past Surgical History: Breast Surgery, Cholecystectomy, Joint Replacement, Orthopedic Surgery Additional Past Surgical History / Comment(s): lt oophorectomy and fallopian tube removed 2011, varicose vein surgery left leg,lasik. Colonoscopy 2020(next after 3yr). BILAT KNEE REPLACEMENT. BILATERAL CARPAL TUNNEL SURGERY. breast bx on lft. Right arm surgery. IVC filter placed 2023. Colonoscopy 2022(next after 2yr). Past Anesthesia/Blood Transfusion Reactions: No Reported Reaction Past Psychological History: No Psychological Hx Reported Smoking Status: Never smoker Past Alcohol Use History: None Reported Past Drug Use History: None Reported - Past Family History Father Family Medical History: No Reported History Additional Family Medical History / Comment(s): Heart disease Mother Family Medical History: Cancer, Myocardial Infarction ([place]) Additional Family Medical History / Comment(s): Grandmother had diabetes. Medications and Allergies Home Medications Medication Instructions Recorded Confirmed Type Thyroid,Pork [[place] Thyroid] 90 mg PO DAILY 03/29/17 02/12/25 History Apixaban [Eliquis] 5 mg PO BID 12/11/24 02/12/25 History Magnesium Chloride [Mag64] 64 mg PO TID 12/11/24 02/12/25 History aMILoride HCL 5 mg PO DAILY 12/11/24 02/12/25 History calcitrioL 0.25 mcg PO MOWEFR 12/11/24 02/12/25 History Acetaminophen Tab [Tylenol] 650 mg PO Q6H PRN 02/12/25 02/12/25 History Acyclovir [Zovirax] 400 mg PO BID 02/12/25 02/12/25 History Albuterol Nebulized [Ventolin 2.5 mg INHALATION RT-Q6H PRN 02/12/25 02/12/25 History Nebulized] EPINEPHrine (Auto Inject) [Epipen] 0.3 mg IM ONCE PRN 02/12/25 02/12/25 History Fluconazole [Diflucan] 200 mg PO DAILY 02/12/25 02/12/25 History Levofloxacin [Levaquin] 500 mg PO DAILY 02/12/25 02/12/25 History Loratadine-Pseudoeph 10-240 mg 1 tab PO DAILY 02/12/25 02/12/25 History [Claritin-D 24 Hour] Pantoprazole Sodium [Protonix] 40 mg PO AC-BID 02/12/25 02/12/25 History Potassium Chloride ER [K-Dur 20] 40 meq PO BID 02/12/25 02/12/25 History Venetoclax [Venclexta] 200 mg PO DAILY 02/12/25 02/12/25 History Vitamin B Complex W/Vitamin C 1 tab PO DAILY 02/12/25 02/12/25 History Vitamin D3(Unknown Dose) 1 tab PO DAILY 02/12/25 02/12/25 History allopurinoL [Zyloprim] 300 mg PO DAILY 02/12/25 02/12/25 History oxyCODONE HCL [OxyIR] 5 mg PO Q4H PRN 02/12/25 02/12/25 History Allergies Allergy/AdvReac Type Severity Reaction Status Date / Time adhesive tape Allergy Rash/Hives Verified 02/12/25 18:01 aspirin Allergy Dyspnea Verified 02/12/25 18:01 bacitracin Allergy Rash/Hives Verified 02/12/25 18:01 [From Polysporin(bacitracin base)] morphine Allergy Itching Verified 02/12/25 18:01 nickel Allergy Rash/Hives Verified 02/12/25 18:01 Penicillins Allergy Rapid Verified 02/12/25 18:01 Heart Rate, anxiety attack polymyxin B Allergy Rash/Hives Verified 02/12/25 18:01 [From Polysporin(bacitracin base)] Physical Exam Vitals: Vital Signs Temp Pulse Pulse Resp BP BP Pulse Ox 02/13/25 08:20 101.7 F H 113 H 18 85/57 97 02/13/25 06:24 101.6 F H 126 H 20 117/85 95 02/13/25 05:44 101.3 F H 144 H 22 109/82 98 02/13/25 05:22 100 F H 02/13/25 02:38 101.2 F H 02/13/25 02:00 98.9 F 117 H 15 99/66 95 02/13/25 00:10 98.5 F 105 H 17 109/79 100 02/12/25 21:00 98.5 F 101 H 18 101/67 96 02/12/25 20:10 99.0 F 106 H 19 108/73 96 02/12/25 19:30 102.1 F H 115 H 20 108/70 96 02/12/25 18:45 100.4 F H 129 H 20 122/75 96 02/12/25 17:21 97.8 F 150 H 24 107/77 99 Intake and Output 02/12/25 02/13/25 02/13/25 22:59 06:59 14:59 Other: Voiding Method External Catheter Weight 88.904 kg Results 02/12/25 17:58 02/13/25 05:48 Cardiac Enzymes 02/12/25 02/13/25 Range/Units 17:58 05:59 AST 19 (14-36) U/L Troponin I <0.012 (0.000-0.034) ng/mL Coagulation 02/12/25 Range/Units 17:58 PT 12.9 H (10.0-12.5) sec APTT 29.4 (22.0-30.0) sec CBC 02/12/25 Range/Units 17:58 WBC 2.07 L (4.50-10.00) 10*3/uL RBC 2.74 L (4.10-5.20) 10*6/uL Hgb 7.9 L (12.0-15.0) g/dL Hct 23.5 L (37.2-46.3) % Plt Count 31 L (140-440) 10*3/uL Comprehensive Metabolic Panel 02/12/25 02/13/25 Range/Units 17:58 05:48 Sodium 134 L (137-145) mmol/L Potassium 4.8 (3.5-5.1) mmol/L Chloride 97 L (98-107) mmol/L Carbon Dioxide 22 (22-30) mmol/L BUN 18 H (7-17) mg/dL Creatinine 1.30 H 1.33 H (0.52-1.04) mg/dL Glucose 136 H (74-99) mg/dL Calcium 9.2 (8.4-10.2) mg/dL AST 19 (14-36) U/L ALT 12 (4-34) U/L Alkaline Phosphatase 143 H (38-126) U/L Total Protein 7.8 (6.3-8.2) g/dL Albumin 4.6 (3.5-5.0) g/dL Current Medications Generic Name Dose Route Start Last Admin Trade Name Freq PRN Reason Stop Dose Admin Acetaminophen 650 mg 02/12/25 20:42 02/13/25 06:12 Acetaminophen Tab 325 Mg Tab PO 650 mg Q4HR PRN Administration Fever and/ or Pain Acyclovir 400 mg 02/13/25 09:00 02/13/25 08:15 Acyclovir 200 Mg Cap PO 400 mg BID JOHNATHON Administration Albuterol Sulfate 2.5 mg 02/12/25 22:27 Albuterol Nebulized 2.5 Mg/3 Ml INHALATION RT-Q6H PRN Shortness Of Breath Apixaban 5 mg 02/12/25 22:30 02/13/25 08:15 Apixaban 5 Mg Tab PO 5 mg BID JOHNATHON Administration Protocol Calcitriol 0.25 mcg 02/14/25 09:00 Calcitriol 0.25 Mcg Cap PO MOWEFR [facility] Hydromorphone HCl 1 mg 02/13/25 06:06 02/13/25 06:20 Hydromorphone 1 Mg/Ml 1 Ml Syringe IVP 1 mg Q3HR PRN Administration Pain Control Cefepime HCl 2 gm/ Sodium 100 mls @ 25 mls/hr 02/13/25 00:00 02/13/25 00:16 Chloride IVPB 25 mls/hr Q12H JOHNATHON Administration Protocol Vancomycin HCl 1,500 mg/ 500 mls @ 167 mls/hr 02/13/25 11:00 Sodium Chloride IVPB Q24H JOHNATHON Ibuprofen 600 mg 02/12/25 20:42 02/13/25 06:13 Ibuprofen 600 Mg Tab PO 600 mg Q6H PRN Administration Fever Ondansetron HCl 4 mg 02/12/25 22:27 02/13/25 06:13 Ondansetron 4 Mg/2 Ml Vial IVP 4 mg Q6HR PRN Administration Nausea And Vomiting Oxycodone HCl 5 mg 02/12/25 22:27 02/12/25 23:20 Oxycodone Hcl 5 Mg Tab PO 5 mg Q4H PRN Administration Moderate Pain (Scale 4 to 6) Pantoprazole Sodium 40 mg 02/13/25 07:30 02/13/25 08:15 Pantoprazole 40 Mg Tablet PO 40 mg AC-BID JOHNATHON Administration Spironolactone 25 mg 02/13/25 09:00 02/13/25 08:15 Spironolactone 25 Mg Tab PO 25 mg BID JOHNATHON Administration Intake and Output 02/12/25 02/13/25 02/13/25 22:59 06:59 14:59 Other: Voiding Method External Catheter Weight 88.904 kg 02/12/25 17:58 02/13/25 05:48
[2025-02-13] MEDS: SODIUM CHLORIDE 0.9% 1,000 ML IV SCH (13:05)
--- NOTE | 2025-02-13 17:41 | P.HPIM ---
History of Present Illness H&P Date: 02/13/25 Patient is a 59-year-old male with relasped AML on chemotherapy, asthma, Crohn's disease, history of DVT and PE with IVC filter and anticoagulation on Eliquis here for evaluation of fever. Patient reported that the fever started yesterday with associated nausea and palpitations. She had history of neutropenic fever about 3 weeks ago and treated in [facility]. She also reported chest pain during time of evaluation. She denied shortness of breath, cough, changes in urination or defecation, extremity swelling, abdominal pain, recent trauma or fall. On admission: Vitals: Temp 100.4, LA 129, RR 20, BP 122/75, O2 saturation 96% on room air Labs: WBC 2.07, hemoglobin 7.9, platelet count 31,000, sodium 134, potassium 4.8, chloride 97, BUN 18, creatinine 1.3, glucose 136, lactic acid 2, calcium 9.2, alk phos 143, AST 19, ALT 12, albumin 4.6. Troponin negative. Urinalysis showed trace protein, trace blood, negative nitrites, negative leukocyte esterase. Imaging: Chest x-ray showed no acute pulmonary process. Initial EKG showed sinus tachycardia with a rate of 132, no ST-T changes, QTc 372 MS. Second EKG showed sinus tachycardia with a rate of 132, normal axis, no ST-T changes, QTc 389 MS. ED documentation reviewed. Review of systems: Pertinent positives and negatives as discussed in HPI, a complete review of systems was performed and all other systems are negative. Physical examination: Vital signs reviewed General: non toxic, no distress, appears at stated age, on nasal cannula Derm: no unusual rashes/lesions, warm Head: atraumatic, normocephalic, symmetric Eyes: EOMI, anicteric sclera, pupils equal round reactive to light ENT: Nose and ears atraumatic Neck: No cervical lymphadenopathy, trachea midline, supple Mouth: no lip lesion, mucus membranes moist Cardiovascular: S1S2 reg, no murmur Lungs: CTA bilateral, no rhonchi, no rales, no accessory muscle use Abdominal: soft, nondistended, nontender to palpation, no guarding Ext: muscle strength 5 out of 5 in all 4 extremities grossly, no gross muscle atrophy, no contractures, positive dorsalis pedis pulse bilateral, bilateral trace edema Neuro: CN II-XI grossly intact, no gross focal neuro deficits Psych: Alert and oriented x 3, appropriate affect and mood Assessment/Plan: The patient is admitted with an anticipated greater than 2 midnight stay for evaluation of neutropenic fever Active: #. Neutropenic fever #. Acute myeloid leukemia currently taking chemotherapy WBC 2.07, hemoglobin 7.9, platelet count 31,000 Empiric cefepime and vancomycin IV fluids 0.9 NS 130 cc/h Continue home acyclovir and levofloxacin for empiric coverage Continue with IV and p.o. pain control Blood cultures ordered Oncology consulted #. Chest pain, r/o ACS -Cardiac monitoring -Supplemental oxygen as needed -Troponin negative -EKG showed sinus tachycardia with a rate of 132, no ST-T changes, QTc 372 MS. EKG as needed -Cardiology consulted #. CKD stage III, baseline Creatinine 1.3 Avoid nephrotoxic agents Monitor urine output and renal function Chronic Conditions: #. Asthma #. Crohn's disease #. History of DVT and PE -Eliquis held due to thrombocytopenia -Continue with home calcitriol, Protonix 40 mg p.o. twice daily DVT ppx: SCDs CODE STATUS: Full Discussed with: Patient patient's partner Anticipated discharge place: Pending clinical course Amber Felix MD PGY-1 Internal Medicine Dictation was produced using [email or web address] dictation software. please excuse any grammatical, word or spelling errors. Attestation: I have seen and examined this patient with my resident, assessment and plan discussed with the resident, agree with assessment and plan as written above. Dr. Massey Past Medical History Past Medical History: Asthma, Cancer, Deep Vein Thrombosis (DVT), Hyperlipidemia, Osteoarthritis (OA), Pulmonary Embolus (PE), Skin Disorder, Thyroid Disorder Additional Past Medical History / Comment(s): Acute myeloid leukemia (AML) diagnosed in 2023. crohn's disease, migraine headaches, varicose veins, oral lichen planus, lichen planus rash on back, thyroid nodule. 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 History of Any Multi-Drug Resistant Organisms: None Reported Past Surgical History: Breast Surgery, Cholecystectomy, Joint Replacement, Orthopedic Surgery Additional Past Surgical History / Comment(s): lt oophorectomy and fallopian tube removed 2011, varicose vein surgery left leg,lasik. Colonoscopy 2020(next after 3yr). BILAT KNEE REPLACEMENT. BILATERAL CARPAL TUNNEL SURGERY. breast bx on lft. Right arm surgery. IVC filter placed 2023. Colonoscopy 2022(next after 2yr). Past Anesthesia/Blood Transfusion Reactions: No Reported Reaction Past Psychological History: No Psychological Hx Reported Smoking Status: Never smoker Past Alcohol Use History: None Reported Past Drug Use History: None Reported - Past Family History Father Family Medical History: No Reported History Additional Family Medical History / Comment(s): Heart disease Mother Family Medical History: Cancer, Myocardial Infarction ([place]) Additional Family Medical History / Comment(s): Grandmother had diabetes. Medications and Allergies Home Medications Medication Instructions Recorded Confirmed Type Thyroid,Pork [[place] Thyroid] 90 mg PO DAILY 03/29/17 02/12/25 History Apixaban [Eliquis] 5 mg PO BID 12/11/24 02/12/25 History Magnesium Chloride [Mag64] 64 mg PO TID 12/11/24 02/12/25 History aMILoride HCL 5 mg PO DAILY 12/11/24 02/12/25 History calcitrioL 0.25 mcg PO MOWEFR 12/11/24 02/12/25 History Acetaminophen Tab [Tylenol] 650 mg PO Q6H PRN 02/12/25 02/12/25 History Acyclovir [Zovirax] 400 mg PO BID 02/12/25 02/12/25 History Albuterol Nebulized [Ventolin 2.5 mg INHALATION RT-Q6H PRN 02/12/25 02/12/25 Hi story Nebulized] EPINEPHrine (Auto Inject) [Epipen] 0.3 mg IM ONCE PRN 02/12/25 02/12/25 History Fluconazole [Diflucan] 200 mg PO DAILY 02/12/25 02/12/25 History Levofloxacin [Levaquin] 500 mg PO DAILY 02/12/25 02/12/25 History Loratadine-Pseudoeph 10-240 mg 1 tab PO DAILY 02/12/25 02/12/25 History [Claritin-D 24 Hour] Pantoprazole Sodium [Protonix] 40 mg PO AC-BID 02/12/25 02/12/25 History Potassium Chloride ER [K-Dur 20] 40 meq PO BID 02/12/25 02/12/25 History Venetoclax [Venclexta] 200 mg PO DAILY 02/12/25 02/12/25 History Vitamin B Complex W/Vitamin C 1 tab PO DAILY 02/12/25 02/12/25 History Vitamin D3(Unknown Dose) 1 tab PO DAILY 02/12/25 02/12/25 History allopurinoL [Zyloprim] 300 mg PO DAILY 02/12/25 02/12/25 History oxyCODONE HCL [OxyIR] 5 mg PO Q4H PRN 02/12/25 02/12/25 History Allergies Allergy/AdvReac Type Severity Reaction Status Date / Time adhesive tape Allergy Rash/Hives Verified 02/12/25 18:01 aspirin Allergy Dyspnea Verified 02/12/25 18:01 bacitracin Allergy Rash/Hives Verified 02/12/25 18:01 [From Polysporin(bacitracin base)] morphine Allergy Itching Verified 02/12/25 18:01 nickel Allergy Rash/Hives Verified 02/12/25 18:01 Penicillins Allergy Rapid Verified 02/12/25 18:01 Heart Rate, anxiety attack polymyxin B Allergy Rash/Hives Verified 02/12/25 18:01 [From Polysporin(bacitracin base)] Physical Exam Vitals: Vital Signs Temp Pulse Pulse Resp BP BP Pulse Ox 02/13/25 09:47 99 18 78/51 94 L 02/13/25 08:20 101.7 F H 113 H 18 85/57 97 02/13/25 06:24 101.6 F H 126 H 20 117/85 95 02/13/25 05:44 101.3 F H 144 H 22 109/82 98 02/13/25 05:22 100 F H 02/13/25 02:38 101.2 F H 02/13/25 02:00 98.9 F 117 H 15 99/66 95 02/13/25 00:10 98.5 F 105 H 17 109/79 100 02/12/25 21:00 98.5 F 101 H 18 101/67 96 02/12/25 20:10 99.0 F 106 H 19 108/73 96 02/12/25 19:30 102.1 F H 115 H 20 108/70 96 02/12/25 18:45 100.4 F H 129 H 20 122/75 96 02/12/25 17:21 97.8 F 150 H 24 107/77 99 Intake and Output 02/12/25 02/13/25 02/13/25 22:59 06:59 14:59 Other: Voiding Method External Catheter Weight 88.904 kg Results CBC & Chem 7: 02/12/25 17:58 02/13/25 05:48 Labs: Abnormal Lab Results - Last 24 Hours (Table) 02/12/25 02/12/25 02/12/25 Range/Units 17:58 17:58 17:58 WBC 2.07 L (4.50-10.00) 10*3/uL RBC 2.74 L (4.10-5.20) 10*6/uL Hgb 7.9 L (12.0-15.0) g/dL Hct 23.5 L (37.2-46.3) % Plt Count 31 L (140-440) 10*3/uL Immature Gran # 0.14 H (0.00-0.04) 10*3/uL Nucleated RBCs 46 H (0-0) /100 WBC Immature Plt Fraction 19.8 H (1.1-6.1) % PT 12.9 H (10.0-12.5) sec INR 1.2 H (<1.2) Sodium 134 L (137-145) mmol/L Chloride 97 L (98-107) mmol/L BUN 18 H (7-17) mg/dL Creatinine 1.30 H (0.52-1.04) mg/dL Glucose 136 H (74-99) mg/dL Alkaline Phosphatase 143 H (38-126) U/L Urine Protein (Negative) Urine Blood (Negative) Urine Bacteria (None) /hpf 02/12/25 02/13/25 Range/Units 20:20 05:48 WBC (4.50-10.00) 10*3/uL RBC (4.10-5.20) 10*6/uL Hgb (12.0-15.0) g/dL Hct (37.2-46.3) % Plt Count (140-440) 10*3/uL Immature Gran # (0.00-0.04) 10*3/uL Nucleated RBCs (0-0) /100 WBC Immature Plt Fraction (1.1-6.1) % PT (10.0-12.5) sec INR (<1.2) Sodium (137-145) mmol/L Chloride (98-107) mmol/L BUN (7-17) mg/dL Creatinine 1.33 H (0.52-1.04) mg/dL Glucose (74-99) mg/dL Alkaline Phosphatase (38-126) U/L Urine Protein Trace H (Negative) Urine Blood Trace H (Negative) Urine Bacteria Rare H (None) /hpf
[2025-02-13] MEDS: MIDODRINE 5 MG TAB PO STA (21:40)
--- NOTE | 2025-02-13 22:42 | P.CONS ---
History of Present Illness - Reason for Consult Consult date: 02/13/25 AML,on treatent Requesting physician: Luiz Martinez - Chief Complaint fever, palpitations, SOB - History of Present Illness Mrs. Armstrong is a 59 yo female pt of Dr. Masterson on venclexta and dacogen for relapsed refractory AML. She was diagnosed with AML May 2024. She had induction and 3 cycles of consolidation with remission of disease. She was seen by BMT team, Dr. Godwin, and no transplant was recommended at that time. Pt went on observation and did well until December when her WBC was noted to be increasing exponentially. She had BM Bx and aspirate 01/06/25 which revealed recurrent disease. She was started on venclexta PO daily and dacogen days 1-5 IV inpt and xospata (FLT3 mutation + treatment). She was in ICU because of blast crisis and had luekophoresis. She has continued on venclexta only-no mention of continuing on xospata, due to start cycle 2. Pt was to meet with Dr. Antonio next week, as pt wants to have her infusions locally. She is admitted with 2 days of persistent/progressive fevers, weakness, poor oral intake, N, no appetite. Review of Systems 10 point ROS is neg except as stated in HPI Past Medical History Past Medical History: Asthma, Cancer, Deep Vein Thrombosis (DVT), Hyperlipidemia, Osteoarthritis (OA), Pulmonary Embolus (PE), Skin Disorder, Thyroid Disorder Additional Past Medical History / Comment(s): Acute myeloid leukemia (AML) diagnosed in 2023. crohn's disease, migraine headaches, varicose veins, oral lichen planus, lichen planus rash on back, thyroid nodule. 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 History of Any Multi-Drug Resistant Organisms: None Reported Past Surgical History: Breast Surgery, Cholecystectomy, Joint Replacement, Orthopedic Surgery Additional Past Surgical History / Comment(s): lt oophorectomy and fallopian tube removed 2011, varicose vein surgery left leg,lasik. Colonoscopy 2020(next after 3yr). BILAT KNEE REPLACEMENT. BILATERAL CARPAL TUNNEL SURGERY. breast bx on lft. Right arm surgery. IVC filter placed 2023. Colonoscopy 2022(next after 2yr). Past Anesthesia/Blood Transfusion Reactions: No Reported Reaction Past Psychological History: No Psychological Hx Reported Smoking Status: Never smoker Past Alcohol Use History: None Reported Past Drug Use History: None Reported - Past Family History Father Family Medical History: No Reported History Additional Family Medical History / Comment(s): Heart disease Mother Family Medical History: Cancer, Myocardial Infarction ([place]) Additional Family Medical History / Comment(s): Grandmother had diabetes. Medications and Allergies Home Medications Medication Instructions Recorded Confirmed Type Thyroid,Pork [[place] Thyroid] 90 mg PO DAILY 03/29/17 02/12/25 History Apixaban [Eliquis] 5 mg PO BID 12/11/24 02/12/25 History Magnesium Chloride [Mag64] 64 mg PO TID 12/11/24 02/12/25 History aMILoride HCL 5 mg PO DAILY 12/11/24 02/12/25 History calcitrioL 0.25 mcg PO MOWEFR 12/11/24 02/12/25 History Acetaminophen Tab [Tylenol] 650 mg PO Q6H PRN 02/12/25 02/12/25 History Acyclovir [Zovirax] 400 mg PO BID 02/12/25 02/12/25 History Albuterol Nebulized [Ventolin 2.5 mg INHALATION RT-Q6H PRN 02/12/25 02/12/25 History Nebulized] EPINEPHrine (Auto Inject) [Epipen] 0.3 mg IM ONCE PRN 02/12/25 02/12/25 History Fluconazole [Diflucan] 200 mg PO DAILY 02/12/25 02/12/25 History Levofloxacin [Levaquin] 500 mg PO DAILY 02/12/25 02/12/25 History Loratadine-Pseudoeph 10-240 mg 1 tab PO DAILY 02/12/25 02/12/25 History [Claritin-D 24 Hour] Pantoprazole Sodium [Protonix] 40 mg PO AC-BID 02/12/25 02/12/25 History Potassium Chloride ER [K-Dur 20] 40 meq PO BID 02/12/25 02/12/25 History Venetoclax [Venclexta] 200 mg PO DAILY 02/12/25 02/12/25 History Vitamin B Complex W/Vitamin C 1 tab PO DAILY 02/12/25 02/12/25 History Vitamin D3(Unknown Dose) 1 tab PO DAILY 02/12/25 02/12/25 History allopurinoL [Zyloprim] 300 mg PO DAILY 02/12/25 02/12/25 History oxyCODONE HCL [OxyIR] 5 mg PO Q4H PRN 02/12/25 02/12/25 History Allergies Allergy/AdvReac Type Severity Reaction Status Date / Time adhesive tape Allergy Rash/Hives Verified 02/12/25 18:01 aspirin Allergy Dyspnea Verified 02/12/25 18:01 bacitracin Allergy Rash/Hives Verified 02/12/25 18:01 [From Polysporin(bacitracin base)] morphine Allergy Itching Verified 02/12/25 18:01 nickel Allergy Rash/Hives Verified 02/12/25 18:01 Penicillins Allergy Rapid Verified 02/12/25 18:01 Heart Rate, anxiety attack polymyxin B Allergy Rash/Hives Verified 02/12/25 18:01 [From Polysporin(bacitracin base)] Physical Exam Vitals: Vital Signs Temp Pulse Pulse Resp BP BP Pulse Ox 02/13/25 15:05 91/56 02/13/25 14:57 94/70 02/13/25 14:00 98 16 80/57 100 02/13/25 12:25 98.5 F 97 18 85/58 96 02/13/25 11:07 98 18 95/67 96 02/13/25 09:47 99 18 78/51 94 L 02/13/25 08:20 101.7 F H 113 H 18 85/57 97 02/13/25 06:24 101.6 F H 126 H 20 117/85 95 02/13/25 05:44 101.3 F H 144 H 22 109/82 98 02/13/25 05:22 100 F H 02/13/25 02:38 101.2 F H 02/13/25 02:00 98.9 F 117 H 15 99/66 95 02/13/25 00:10 98.5 F 105 H 17 109/79 100 02/12/25 21:00 98.5 F 101 H 18 101/67 96 02/12/25 20:10 99.0 F 106 H 19 108/73 96 02/12/25 19:30 102.1 F H 115 H 20 108/70 96 02/12/25 18:45 100.4 F H 129 H 20 122/75 96 02/12/25 17:21 97.8 F 150 H 24 107/77 99 Intake and Output 02/13/25 02/13/25 02/13/25 06:59 14:59 22:59 Other: Voiding Method External Catheter - Constitutional General appearance: average body habitus, cooperative, no acute distress - EENT Eyes: anicteric sclerae, EOMI ENT: hearing grossly normal, normal oropharynx - Neck Neck: no lymphadenopathy - Respiratory Respiratory: bilateral: CTA - Cardiovascular Rhythm: regular Heart sounds: normal: S1, S2 Abnormal Heart Sounds: no systolic murmur, no diastolic murmur, no rub, no S3 Gallop, no S4 Gallop, no click, no other leg Peripheral Edema: bilateral: None - Gastrointestinal General gastrointestinal: no absent bowel sounds, no decreased bowel sounds, no distended, no hepatomegaly, no hyperactive bowel sounds, normal bowel sounds, no organomegaly, no rigid, no scaphoid, soft, no splenomegaly, tenderness, no umbilical hernia, no ventral hernia - Integumentary Integumentary: pale - Neurologic Neurologic: CNII-XII intact - Musculoskeletal Musculoskeletal: generalized weakness - Psychiatric Psychiatric: A&O x's 3, appropriate affect, intact judgment & insight Results CBC & Chem 7: 02/12/25 17:58 02/13/25 05:48 Labs: Abnormal Lab Results - Last 24 Hours (Table) 02/12/25 02/12/25 02/12/25 Range/Units 17:58 17:58 17:58 WBC 2.07 L (4.50-10.00) 10*3/uL RBC 2.74 L (4.10-5.20) 10*6/uL Hgb 7.9 L (12.0-15.0) g/dL Hct 23.5 L (37.2-46.3) % Plt Count 31 L (140-440) 10*3/uL Immature Gran # 0.14 H (0.00-0.04) 10*3/uL Nucleated RBCs 46 H (0-0) /100 WBC Immature Plt Fraction 19.8 H (1.1-6.1) % PT 12.9 H (10.0-12.5) sec INR 1.2 H (<1.2) Sodium 134 L (137-145) mmol/L Chloride 97 L (98-107) mmol/L BUN 18 H (7-17) mg/dL Creatinine 1.30 H (0.52-1.04) mg/dL Glucose 136 H (74-99) mg/dL Alkaline Phosphatase 143 H (38-126) U/L Urine Protein (Negative) Urine Blood (Negative) Urine Bacteria (None) /hpf 02/12/25 02/13/25 Range/Units 20:20 05:48 WBC (4.50-10.00) 10*3/uL RBC (4.10-5.20) 10*6/uL Hgb (12.0-15.0) g/dL Hct (37.2-46.3) % Plt Count (140-440) 10*3/uL Immature Gran # (0.00-0.04) 10*3/uL Nucleated RBCs (0-0) /100 WBC Immature Plt Fraction (1.1-6.1) % PT (10.0-12.5) sec INR (<1.2) Sodium (137-145) mmol/L Chloride (98-107) mmol/L BUN (7-17) mg/dL Creatinine 1.33 H (0.52-1.04) mg/dL Glucose (74-99) mg/dL Alkaline Phosphatase (38-126) U/L Urine Protein Trace H (Negative) Urine Blood Trace H (Negative) Urine Bacteria Rare H (None) /hpf Chest x-ray: report reviewed Assessment and Plan (1) Neutropenic fever Current Visit: Yes Status: Acute Priority: High Code(s): D70.9 - NEUTROPENIA, UNSPECIFIED; R50.81 - FEVER PRESENTING WITH CONDITIONS CLASSIFIED ELSEWHERE SNOMED Code(s): 255667967 (2) AML (acute myelogenous leukemia) Current Visit: Yes Status: Acute Priority: High Code(s): C92.00 - ACUTE MYELOBLASTIC LEUKEMIA, NOT HAVING ACHIEVED REMISSION SNOMED Code(s): 01504046 Plan: Fever/febrile neutropenia - Pancultures pending - Cefepime and vancomycin ordered -ID consulted Acute myeloid leukemia - Diagnosis and treatment as stated in HPI - Did call and leave a message for primary Oncologist. Pending callback. - Hold Venclexta for now Chemotherapy-induced pancytopenia - Patient's had last several CBCs available for review. Counts are mostly stable at this time -No G-CSF, patient is not confirmed remission. NPO/Ice chips because of neutropenia -Transfuse with irradiated blood products only. -Transfuse for hemoglobin less than 7 or if symptomatic. -Transfuse for platelets less than 10,000 or if symptomatic. Eliquis held for platelets less than 50,000 -CBC daily.
[2025-02-13] MEDS: NOREPINEPHRINE 4 MG in SODIUM CHLORIDE 0.9% 250 ML IV ONE (23:00)
[2025-02-14 01:02] LABS: Glucose,Whole Blood 102 mg/dL (70-110)
--- NOTE | 2025-02-14 01:07 | P.CNPUL ---
History of Present Illness Consult date: 02/14/25 Requesting physician: Amber Morfin Reason for consult: other Chief complaint: Generalized weakness, intermittent fevers History of present illness: Patient is currently being seen in the emergency department as an overflow for the oncology unit. Admitted back on 02/12/2025 with neutropenic fever. I was contacted as the patient has developed hypotension. She has received several fluid boluses, 4 L of crystalloid fluid in total. Normal saline infusing at 130 mL/h. She is lethargic and diaphoretic, information is being supplemented by who is at bedside. 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 She has been following with out-of-town oncologist, out of the [facility] system. Did reportedly have disease remission. Followed by a bone marrow biopsy late December, showing recurrent disease. She was hospitalized at [facility] [place] on January for chemo reinduction. Reportedly, had blast crisis and had leukapheresis. Ultimately, discharged home last . She has been continued on Venclexta p.o. daily. She reportedly has an appointment with Dr. Antonio to set up infusions locally. 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 Over the last several days patient has developed intermittent fevers, generalized weakness, and heart racing. Presented the emergency department back on 02/12/2025. Found to be febrile and neutropenic. Chemotherapy is on hold. She has been started on empiric antibiotics in the form of cefepime and vancomycin. Chest x-ray does not show any acute cardiopulmonary process. Urinalysis unremarkable for infection. Abdomen is soft, non-tender. Does endorse some nausea without emesis or diarrhea. Appetite has been poor. CBC: WBC count 2.07, hemoglobin 7.9 g/dL, platelets 31,000. Coagulation profile with a PT of 12.9, INR 1.2, APTT 29.4. CMP: Sodium 134, potassium 4.8, chloride 97, serum bicarb 22, BUN 18, creatinine 1.3, blood glucose 136. LFTs not elevated. Troponin less than 0.012. EKG: Sinus tachycardia, rate 132 bpm, no acute ischemic changes. Lactic acid 2 down to 0.7. Currently, patient's blood pressure is 76/57 mmHg and tachycardic. Febrile with a Tmax of 103.3 F. I am recommending that we start the patient on norepinephrine infusion for blood pressure support. She is going to be transferred to the intensive care unit. Review of Systems Constitutional: Reports chills, Reports fever, Reports lethargy, Reports poor appetite, Reports sweats, Denies weight gain, Denies weight loss Ears, nose, mouth and throat: Denies headache, Denies nasal congestion, Denies nasal discharge, Denies post-nasal drip, Denies sinus pain, Denies sinus pressure, Denies sore throat Cardiovascular: Reports chest pain (Previous complaints of chest pain, none currently), Reports lightheadedness, Reports rapid heart beat, Denies leg edema, Denies orthopnea, Denies shortness of breath, Denies syncope Respiratory: Denies congestion, Denies cough, Denies dyspnea, Denies respiratory infections Gastrointestinal: Reports nausea, Denies abdominal pain, Denies constipation, De nies diarrhea, Denies hematochezia, Denies melena, Denies vomiting Genitourinary: Denies dysuria, Denies flank pain, Denies hematuria, Denies urinary frequency Musculoskeletal: Denies limitation of motion Integumentary: Denies rash Neurological: Denies seizures, Denies syncope Psychiatric: Denies anxiety, Denies depression Past Medical History Past Medical History: Asthma, Cancer, Deep Vein Thrombosis (DVT), Hyperlipidemia, Osteoarthritis (OA), Pulmonary Embolus (PE), Skin Disorder, Thyroid Disorder Additional Past Medical History / Comment(s): Acute myeloid leukemia (AML) diagnosed in 2023. crohn's disease, migraine headaches, varicose veins, oral lichen planus, lichen planus rash on back, thyroid nodule. 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 History of Any Multi-Drug Resistant Organisms: None Reported Past Surgical History: Breast Surgery, Cholecystectomy, Joint Replacement, Orthopedic Surgery Additional Past Surgical History / Comment(s): lt oophorectomy and fallopian tube removed 2011, varicose vein surgery left leg,lasik. Colonoscopy 2020(next after 3yr). BILAT KNEE REPLACEMENT. BILATERAL CARPAL TUNNEL SURGERY. breast bx on lft. Right arm surgery. IVC filter placed 2023. Colonoscopy 2022(next af ter 2yr). Past Anesthesia/Blood Transfusion Reactions: No Reported Reaction Past Psychological History: No Psychological Hx Reported Smoking Status: Never smoker Past Alcohol Use History: None Reported Past Drug Use History: None Reported - Past Family History Father Family Medical History: No Reported History Additional Family Medical History / Comment(s): Heart disease Mother Family Medical History: Cancer, Myocardial Infarction ([place]) Additional Family Medical History / Comment(s): Grandmother had diabetes. Medications and Allergies Home Medications Medication Instructions Recorded Confirmed Type Thyroid,Pork [[place] Thyroid] 90 mg PO DAILY 03/29/17 02/12/25 History Apixaban [Eliquis] 5 mg PO BID 12/11/24 02/12/25 History Magnesium Chloride [Mag64] 64 mg PO TID 12/11/24 02/12/25 History aMILoride HCL 5 mg PO DAILY 12/11/24 02/12/25 History calcitrioL 0.25 mcg PO MOWEFR 12/11/24 02/12/25 History Acetaminophen Tab [Tylenol] 650 mg PO Q6H PRN 02/12/25 02/12/25 History Acyclovir [Zovirax] 400 mg PO BID 02/12/25 02/12/25 History Albuterol Nebulized [Ventolin 2.5 mg INHALATION RT-Q6H PRN 02/12/25 02/12/25 History Nebulized] EPINEPHrine (Auto Inject) [Epipen] 0.3 mg IM ONCE PRN 02/12/25 02/12/25 History Fluconazole [Diflucan] 200 mg PO DAILY 02/12/25 02/12/25 History Levofloxacin [Levaquin] 500 mg PO DAILY 02/12/25 02/12/25 History Loratadine-Pseudoeph 10-240 mg 1 tab PO DAILY 02/12/25 02/12/25 History [Claritin-D 24 Hour] Pantoprazole Sodium [Protonix] 40 mg PO AC-BID 02/12/25 02/12/25 History Potassium Chloride ER [K-Dur 20] 40 meq PO BID 02/12/25 02/12/25 History Venetoclax [Venclexta] 200 mg PO DAILY 02/12/25 02/12/25 History Vitamin B Complex W/Vitamin C 1 tab PO DAILY 02/12/25 02/12/25 History Vitamin D3(Unknown Dose) 1 tab PO DAILY 02/12/25 02/12/25 History allopurinoL [Zyloprim] 300 mg PO DAILY 02/12/25 02/12/25 History oxyCODONE HCL [OxyIR] 5 mg PO Q4H PRN 02/12/25 02/12/25 History Allergies Allergy/AdvReac Type Severity Reaction Status Date / Time adhesive tape Allergy Rash/Hives Verified 02/12/25 18:01 aspirin Allergy Dyspnea Verified 02/12/25 18:01 bacitracin Allergy Rash/Hives Verified 02/12/25 18:01 [From Polysporin(bacitracin base)] morphine Allergy Itching Verified 02/12/25 18:01 nickel Allergy Rash/Hives Verified 02/12/25 18:01 Penicillins Allergy Rapid Verified 02/12/25 18:01 Heart Rate, anxiety attack polymyxin B Allergy Rash/Hives Verified 02/12/25 18:01 [From Polysporin(bacitracin base)] Physical Exam Vitals: Vital Signs Temp Pulse Pulse Resp BP BP Pulse Ox 02/13/25 23:59 101 H 16 84/57 96 02/13/25 23:33 101 H 18 82/59 96 02/13/25 23:30 82/63 02/13/25 23:25 84/58 02/13/25 23:20 85/63 02/13/25 23:15 80/60 02/13/25 23:10 80/60 02/13/25 23:05 98.2 F 103 H 16 76/57 97 02/13/25 22:30 65/45 02/13/25 21:28 98.2 F 106 H 18 79/51 94 L 02/13/25 19:33 99.6 F 117 H 16 82/55 95 02/13/25 18:00 103.2 F H 130 H 18 103/62 95 02/13/25 17:00 130 H 18 108/61 94 L 02/13/25 16:08 98/65 02/13/25 15:05 91/56 02/13/25 14:57 94/70 02/13/25 14:00 98 16 80/57 100 02/13/25 12:25 98.5 F 97 18 85/58 96 02/13/25 11:07 98 18 95/67 96 02/13/25 09:47 99 18 78/51 94 L 02/13/25 08:20 101.7 F H 113 H 18 85/57 97 02/13/25 06:24 101.6 F H 126 H 20 117/85 95 02/13/25 05:44 101.3 F H 144 H 22 109/82 98 02/13/25 05:22 100 F H 02/13/25 02:38 101.2 F H 02/13/25 02:00 98.9 F 117 H 15 99/66 95 GENERAL EXAM: Lethargic, 59-year-old obese female, diaphoretic and slow to respond. Currently hypotensive, tachycardic and febrile. HEAD: Normocephalic and atraumatic EYES: Normal reaction of pupils, equal size. NOSE: Clear with pink turbinates. THROAT: No erythema or exudates. NECK: No masses, no JVD. CHEST: No chest wall deformity. LUNGS: Equal air entry with no crackles, wheeze, rhonchi or dullness. On 2 L/min nasal cannula. SpO2 reading 96% on bedside monitor. No conversational dyspnea or accessory muscle use.. CVS: S1 and S2 normal with no audible murmur, regular rhythm. No extra heart sounds ABDOMEN: No hepatosplenomegaly, active bowel sounds, no guarding or rigidity. SPINE: No scoliosis or deformity SKIN: No rashes CENTRAL NERVOUS SYSTEM: No focal deficits, tone is normal in all 4 extremities. EXTREMITIES: There is no peripheral edema, clubbing, or cyanosis. Peripheral pulses are intact. Results - Laboratory Findings CBC and BMP: 02/14/25 06:17 02/14/25 06:17 PT/INR, D-dimer PT 12.9 sec (10.0-12.5) H 02/12/25 17:58 INR 1.2 (<1.2) H 02/12/25 17:58 Abnormal lab findings: Abnormal Labs 02/12/25 02/12/25 02/12/25 17:58 17:58 17:58 WBC 2.07 L RBC 2.74 L Hgb 7.9 L Hct 23.5 L Plt Count 31 L Immature Gran # 0.14 H Nucleated RBCs 46 H Immature Plt Fraction 19.8 H PT 12.9 H INR 1.2 H Sodium 134 L Chloride 97 L BUN 18 H Creatinine 1.30 H Glucose 136 H Alkaline Phosphatase 143 H Urine Protein Urine Blood Urine Bacteria 02/12/25 02/13/25 20:20 05:48 WBC RBC Hgb Hct Plt Count Immature Gran # Nucleated RBCs Immature Plt Fraction PT INR Sodium Chloride BUN Creatinine 1.33 H Glucose Alkaline Phosphatase Urine Protein Trace H Urine Blood Trace H Urine Bacteria Rare H - Diagnostic Findings Chest x-ray: image reviewed Assessment and Plan Assessment: Neutropenic sepsis/septic shock Hypotension/shock, secondary to above, refractory to fluid resuscitation and g oing to be started on norepinephrine for blood pressure support Acute febrile illness AML, with reportedly with previous disease remission and reoccurrence, [facility]. Also, had Blast cell crisis in leukapheresis. Eventually discharged last to continue on p.o. Venclexta. She was to be established with local medical oncology for IV infusions. 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 Continues to be hypotensive despite aggressive fluid resuscitation. Continue normal saline at 130 mL/h. Start the patient on norepinephrine to maintain a MAP of 65 mmHg or greater. Continue broad-spectrum empiric antibiotics Blood cultures pending Tylenol as needed for fevers Venclexta on hold Monitor blood cell counts, Eliquis is on hold. Medical oncology following, chemotherapy treatment on hold Case to be reviewed with my supervising physician, further recommendations to follow. Condition is currently critical, she is going to be moved to the intensive care unit. Patient's is at bedside and has been updated. I have personally seen and examined the patient, performed the documentation and the assessment and plan as written. Number of minutes spent on the visit:20 This is a joint evaluation that was done along with the nurse practitioner. This evaluation was done in the intensive care unit and this evaluation was done more than 30 minutes. Case was also discussed with the oncology team, Dr. Antonio. In summary, the patient has a relapsing AML, received induction treatment as stated in the patient is coming into the ICU with hypotension and neutropenic sepsis. The patient was quite hypotensive. The patient received a total of 3 L of IV fluids and the patient is currently on normal saline at rate of 130 cc an hour and the patient is on a low-dose norepinephrine running at 0.03 mcg/kg/min. Antibiotic coverage includes a combination of cefepime, vancomycin, Zovirax and Levaquin. Patient also has sustained an acute kidney injury. She is currently on 2 L of oxygen by nasal cannula. She is awake and alert with no significant confusion.Repeat blood work from today shows a hemoglobin of 6.3 and the patient will need packed RBC transfusion. Platelet count of 46. BUN 22 with a creatinine 1.7. Sodium does at 136. ID has been consulted. Cultures have been sent. The results are still pending for now. Condition is obviously critical and we will continue to follow the patient's course in the intensive care unit. Time with Patient: Greater than 30
[2025-02-14 06:50] LABS: Immature Platelet Fraction 18.8 % (1.1-6.1); Mean Platelet Volume 12.1 fL (9.5-12.2); RBC 2.17 10*6/uL (4.10-5.20); RDW 17.3 % (11.5-14.5)
[2025-02-14 07:02] LABS: African American GFR (CKD) 38 (>60 ml/min/1.73 sqM); Anion Gap 14 mmol/L; Blood Urea Nitrogen 22 mg/dL (7-17); Calcium 8.1 mg/dL (8.4-10.2); Carbon Dioxide 16 mmol/L (22-30); Chloride 106 mmol/L (98-107); Glucose 86 mg/dL (74-99); Non-African American GFR(CKD) 33 (>60 ml/min/1.73 sqM); Sodium 136 mmol/L (137-145)
[2025-02-14 07:04] LABS: HCT 19.7 % (37.2-46.3); HGB 6.3 g/dL (12.0-15.0)
[2025-02-14 07:05] LABS: MCV 90.8 fL (80.0-97.0)
[2025-02-14 08:15] LABS: Platelet Count 46 10*3/uL (140-440)
[2025-02-14 08:35] LABS: Neutrophils % (M) 8 %
[2025-02-14 08:36] LABS: Anisocytosis (M) Present; Lymphocytes # (M) 13.94 k/uL (1.0-4.8); Monocytes # (M) 1.68 k/uL (0-1.0); Neutrophils # (M) 1.34 k/uL (1.3-7.7); Nucleated Red Blood Cells 15 /100 WBC (0-0); Total Cells Counted 200
[2025-02-14 08:37] LABS: RBC Fragments Present
[2025-02-14] MEDS ORDERED: ENOXAPARIN 40 MG/0.4 ML SYRINGE SQ SCH (09:00)
[2025-02-14] MEDS: DEXTROSE 5% IN WATER 1,000 ML with SODIUM BICARB (1 MEQ/ML) 150 ML IV SCH (12:50)
--- NOTE | 2025-02-14 15:32 | P.PN ---
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 Patient reported that the fever started yesterday with associated nausea and palpitations. She had history of neutropenic fever about 3 weeks ago and treated in [facility]. She also reported chest pain during time of evaluation. She denied shortness of breath, cough, changes in urination or defecation, extremity swelling, abdominal pain, recent trauma or fall. On admission: Vitals: Temp 100.4, FL 129, RR 20, BP 122/75, O2 saturation 96% on room air Labs: WBC 2.07, hemoglobin 7.9, platelet count 31,000, sodium 134, potassium 4.8, chloride 97, BUN 18, creatinine 1.3, glucose 136, lactic acid 2, calcium 9.2, alk phos 143, AST 19, ALT 12, albumin 4.6. Troponin negative. Urinalysis showed trace protein, trace blood, negative nitrites, negative leukocyte esterase. Imaging: Chest x-ray showed no acute pulmonary process. Initial EKG showed sinus tachycardia with a rate of 132, no ST-T changes, QTc 372 MS. Second EKG showed sinus tachycardia with a rate of 132, normal axis, no ST-T changes, QTc 389 MS. 02/14/2025 patient seen and examined at bedside. Patient was sent to the ICU yesterday evening for hypotension despite 4 L of IV fluid boluses. Labs: Labs today showed WBC 16.8, hemoglobin 6.3, MCV 90.8, platelet count 46,000, sodium 136, potassium 4, chloride 106, bicarb 16, BUN 22, creatinine 1.7, glucose 86, calcium 8.1 Review of systems: Pertinent positives and negatives as discussed in HPI, a complete review of systems was performed and all other systems are negative. Physical examination: Vital signs reviewed General: non toxic, no distress, appears at stated age, on nasal cannula Derm: no unusual rashes/lesions, warm Head: atraumatic, normocephalic, symmetric Eyes: EOMI, anicteric sclera, pupils equal round reactive to light ENT: Nose and ears atraumatic Neck: No cervical lymphadenopathy, trachea midline, supple Mouth: no lip lesion, mucus membranes moist Cardiovascular: S1S2 reg, no murmur Lungs: CTA bilateral, no rhonchi, no rales, no accessory muscle use Abdominal: soft, nondistended, nontender to palpation, no guarding Ext: muscle strength 5 out of 5 in all 4 extremities grossly, no gross muscle atrophy, no contractures, positive dorsalis pedis pulse bilateral, bilateral lower extremity +1 pitting edema Neuro: CN II-XI grossly intact, no gross focal neuro deficits Psych: Alert and oriented x 3, appropriate affect and mood Assessment/Plan: The patient is admitted with an anticipated greater than 2 midnight stay for evaluation of neutropenic fever Active: #. Severe Neutropenic fever #. Acute myeloid leukemia currently taking chemotherapy #. Pancytopenia secondary to above #. Anion gap metabolic acidosis MASCC 19, not low risk WBC 16.8, hemoglobin 6.3, platelet count 46,000. 1 unit pRBC with type and screen ordered. Empiric cefepime and vancomycin Continue home acyclovir and levofloxacin for empiric coverage Currently on bicarb drip 100 cc/h and Levophed drip in the ICU Continue with IV and p.o. pain control Blood cultures pending Pulmonology consulted for ICU care Oncology consulted Infectious disease consulted #. Chest pain, ACS ruled out Cardiac monitoring Supplemental oxygen as needed Troponin negative EKG showed sinus tachycardia with a rate of 132, no ST-T changes, QTc 372 MS. EKG as needed Cardiology consulted. ACS has been ruled out. Have signed off #. Acute on CKD stage III, baseline Creatinine 1.3, today 1.7 Avoid nephrotoxic agents Monitor urine output and renal function Chronic Conditions: #. Asthma #. Crohn's disease #. History of DVT and PE -Eliquis held due to thrombocytopenia -Continue with home calcitriol, Protonix 40 mg p.o. twice daily DVT ppx: SCDs CODE STATUS: Full Discussed with: Patient patient's partner Anticipated discharge place: Pending clinical course Amber Felix MD PGY-1 Internal Medicine Dictation was produced using [employer] dictation software. please excuse any grammatical, word or spelling errors. Objective - Vital Signs Vital signs: Vital Signs Temp 98.3 F 02/14/25 04:00 Pulse 109 H 02/14/25 06:10 Resp 31 H 02/14/25 06:10 BP 105/70 02/14/25 06:10 Pulse Ox 96 02/14/25 06:10 FiO2 Intake & Output 02/13/25 02/14/25 02/14/25 18:59 06:59 18:59 Intake Total 766.174 Output Total 1000 Balance -233.826 Weight 92.5 kg Intake: IV 675 Cefepime 2 gm In Sodium 25 Chloride 0.9% 100 ml @ 25 mls/hr IVPB Q12H [facility] Rx# :[id number] Sodium Chloride 0.9% 1, 650 000 ml @ 130 mls/hr IV . Q7H42M [facility] Rx#:[id number] Intake, IV Titration 91.174 Amount Norepinephrine 4 mg In 91.174 Sodium Chloride 0.9% 250 ml @ 0.03 MCG/KG/MIN 10. 162 mls/hr IV .Q24H [facility] Rx#:[id number] Output: Urine 1000 Other: Voiding Method Diaper External Catheter - Labs CBC & Chem 7: 02/14/25 06:17 02/14/25 06:17 Labs: Abnormal Lab Results - Last 24 Hours (Table) 02/14/25 Range/Units 06:17 WBC 19.32 H (4.50-10.00) 10*3/uL RBC 2.17 L (4.10-5.20) 10*6/uL Hgb 6.3 L* D (12.0-15.0) g/dL RDW 17.3 H (11.5-14.5) % Plt Count 46 L (140-440) 10*3/uL Immature Gran # 0.87 H (0.00-0.04) 10*3/uL Immature Plt Fraction 18.8 H (1.1-6.1) % Microbiology - Last 24 Hours (Table) 02/12/25 17:58 Blood Culture - Preliminary Blood
[2025-02-14 16:01] LABS: Basophils # (A) 0.07 10*3/uL (0.00-0.10); Basophils % (A) 0.3 %; Eosinophils # (A) 0.04 10*3/uL (0.04-0.35); Eosinophils % (A) 0.2 %; HCT 20.3 % (37.2-46.3); Immature Platelet Fraction 16.4 % (1.1-6.1); Lymphocytes # (A) 5.87 10*3/uL (0.90-5.00); Lymphocytes % (A) 24.1 %; MCH 29.9 pg (27.0-32.0); MCV 87.9 fL (80.0-97.0); Monocytes # (A) 15.56 10*3/uL (0.20-1.00); Neutrophils % (A) 5.8 %; RBC 2.31 10*6/uL (4.10-5.20); RDW 16.5 % (11.5-14.5); WBC 24.31 10*3/uL (4.50-10.00)
[2025-02-14 16:12] LABS: HGB 6.9 g/dL (12.0-15.0); Platelet Count 48 10*3/uL (140-440)
--- NOTE | 2025-02-14 19:45 | P.PN ---
Subjective Progress Note Date: 02/14/25 Seen in ICU at today's visit. Fever of 103.2 last night, afebrile this morning. Continues on IV abx, BC negative thus far. Reporting she is feeling fatigued and generalized weakness. Denies abd pain, n/v. WBC today 16.8, ANC 1.34, hgb 6.3, plt 46. 1 unit PRBCs ordered Objective - Vital Signs Vital signs: Vital Signs Temp 97.9 F 02/14/25 12:43 Pulse 96 02/14/25 14:15 Resp 20 02/14/25 14:15 BP 95/66 02/14/25 14:15 Pulse Ox 99 02/14/25 14:00 FiO2 Intake & Output 02/13/25 02/14/25 02/14/25 18:59 06:59 18:59 Intake Total 766.174 761.311 Output Total 1000 300 Balance -233.826 461.311 Weight 92.5 kg Intake: IV 675 390 Cefepime 2 gm In Sodium 25 Chloride 0.9% 100 ml @ 25 mls/hr IVPB Q12H [facility] Rx# :[id number] Sodium Chloride 0.9% 1, 650 390 000 ml @ 130 mls/hr IV . Q7H42M [facility] Rx#:[id number] Intake, IV Titration 91.174 61.311 Amount Norepinephrine 4 mg In 91.174 61.311 Sodium Chloride 0.9% 250 ml @ 0.03 MCG/KG/MIN 10. 162 mls/hr IV .Q24H [facility] Rx#:[id number] Blood Product 310 Rc As-1 Unit 310 [id number] Output: Urine 1000 300 Other: Voiding Method Diaper Diaper External Catheter External Catheter # Voids 0 - Constitutional General appearance: Present: no acute distress - EENT Eyes: Present: anicteric sclerae, EOMI ENT: Present: hearing grossly normal - Respiratory Details: breathing is even and unlabored - Cardiovascular Details: skin warm and dry - Gastrointestinal General gastrointestinal: Present: soft. Absent: tenderness - Integumentary Integumentary: Present: pale. Absent: cyanotic, jaundiced - Musculoskeletal Musculoskeletal: Present: generalized weakness - Psychiatric Psychiatric: Present: A&O x's 3 - Labs CBC & Chem 7: 02/14/25 15:43 02/14/25 06:17 Labs: Abnormal Lab Results - Last 24 Hours (Table) 02/14/25 02/14/25 02/14/25 Range/Units 06:17 06:17 07:23 WBC 16.80 H (4.50-10.00) 10*3/uL RBC 2.17 L (4.10-5.20) 10*6/uL Hgb 6.3 L* D (12.0-15.0) g/dL Hct 19.7 L* (37.2-46.3) % RDW 17.3 H (11.5-14.5) % Plt Count 46 L (140-440) 10*3/uL Immature Gran # 0.87 H (0.00-0.04) 10*3/uL Lymphocytes # (Manual) 13.94 H (1.0-4.8) k/uL Monocytes # (Manual) 1.68 H (0-1.0) k/uL Nucleated RBCs 15 H (0-0) /100 WBC Immature Plt Fraction 18.8 H (1.1-6.1) % Sodium 136 L (137-145) mmol/L Carbon Dioxide 16 L (22-30) mmol/L BUN 22 H (7-17) mg/dL Creatinine 1.71 H (0.52-1.04) mg/dL Calcium 8.1 L (8.4-10.2) mg/dL Crossmatch See Detail Microbiology - Last 24 Hours (Table) 02/12/25 17:58 Blood Culture - Preliminary Blood Assessment and Plan (1) AML (acute myelogenous leukemia) Current Visit: Yes Status: Acute Priority: High Code(s): C92.00 - ACUTE MYELOBLASTIC LEUKEMIA, NOT HAVING ACHIEVED REMISSION SNOMED Code(s): 77774131 (2) Neutropenic fever Current Visit: Yes Status: Acute Priority: High Code(s): D70.9 - NEUTROPENIA, UNSPECIFIED; R50.81 - FEVER PRESENTING WITH CONDITIONS CLASSIFIED ELSEWHERE SNOMED Code(s): 253958732 Plan: Fever/febrile neutropenia - CXR negative. BC negative thus far. - Cefepime and vancomycin ordered - ID following - Afebrile today Acute myeloid leukemia - Diagnosis and treatment as stated in HPI - Did call and leave a message for primary Oncologist. Pending callback. - Hold Venclexta for now. If neutropenia remains stable, will plan to restart venclexta inpt - Clinic f/u scheduled next week with Dr. Antonio Chemotherapy-induced pancytopenia - Patient's had last several CBCs available for review. Counts were mos tly stable - No G-CSF, patient is not confirmed remission. -Transfuse with irradiated blood products only. -Transfuse for hemoglobin less than 7 or if symptomatic. -Transfuse for platelets less than 10,000 or if symptomatic. Eliquis held for platelets less than 50,000 -CBC daily. Doctor attests: I performed a history and physical examination of this patient, developed impression and plan of care. Discussed with dictator. I agree with dictators note, documented as a scribe.
[2025-02-14] MEDS: METOCLOPRAMIDE 5 MG/ML 2 ML VIAL IVP STA (20:28)
--- NOTE | 2025-02-14 22:12 | P.CONS ---
History of Present Illness - Reason for Consult Consult date: 02/14/25 Neutropenic fever, AML Requesting physician: Becky Kline - Chief Complaint weakness and fever x few days - History of Present Illness Patient is a 59-year-old female with a past medical history significant for Cancer, Deep Vein Thrombosis (DVT), Hyperlipidemia, Osteoarthritis (OA), Pulmonary Embolus (PE), Skin Disorder, Thyroid Disorder, acute myeloid leukemia for the patient has been on chemotherapy patient has been brought into the hospital for evaluation of generalized weakness palpitation and intermittent fever patient denies having any headache or URI symptoms has been complaining of some shortness of breath occasional cough not bringing up any sp utum patient did have some nausea but no vomiting abdominal pain no diarrhea patient was initially admitted to the oncology floor subsequent developing hypotension for the patient has been transferred to the ICU on presentation to the hospital patient did spike a fever of 102.1 F last temperature has been 103.2 F last evening patient was tachycardic and hypertensive however no significant hypoxemia currently on 2 L nasal cannula oxygen patient did have a white count of 2.7 on admission which is up to 24.31 platelet count is 48 BUN and creatinine has been mildly elevated procalcitonin 3.89 urine has been negative patient did have a chest x-ray no acute pulmonary process patient is currently on empiric cefepime and vancomycin infectious disease has been consulted for neutropenic fever AML Review of Systems Positive point and negatives has been mentioned in the HPI, complete review of systems was performed and all other systems are negative Past Medical History Past Medical History: Asthma, Cancer, Deep Vein Thrombosis (DVT), Hyperlipidemia, Osteoarthritis (OA), Pulmonary Embolus (PE), Skin Disorder, Thyroid Disorder Additional Past Medical History / Comment(s): Acute myeloid leukemia (AML) diagnosed in 2023. crohn's disease, migraine headaches, varicose veins, oral lichen planus, lichen planus rash on back, thyroid nodule. PAST HEAD OF SCIENCE HISTORY: She has no history of STDs. History of Any Multi-Drug Resistant Organisms: None Reported Past Surgical History: Breast Surgery, Cholecystectomy, Joint Replacement, Orthopedic Surgery Additional Past Surgical History / Comment(s): lt oophorectomy and fallopian tube removed 2011, varicose vein surgery left leg,lasik. Colonoscopy 2020(next after 3yr). BILAT KNEE REPLACEMENT. BILATERAL CARPAL TUNNEL SURGERY. breast bx on lft. Right arm surgery. IVC filter placed 2023. Colonoscopy 2022(next after 2yr). Past Anesthesia/Blood Transfusion Reactions: No Reported Reaction Past Psychological History: No Psychological Hx Reported Smoking Status: Never smoker Past Alcohol Use History: None Reported Past Drug Use History: None Reported - Past Family History Father Family Medical History: No Reported History Additional Family Medical History / Comment(s): Heart disease Mother Family Medical History: Cancer, Myocardial Infarction (ND) Additional Family Medical History / Comment(s): Grandmother had diabetes. Medications and Allergies Home Medications Medication Instructions Recorded Confirmed Type Thyroid,Pork [Ora Thyroid] 90 mg PO DAILY 03/29/17 02/12/25 History Apixaban [Eliquis] 5 mg PO BID 12/11/24 02/12/25 History Magnesium Chloride [Mag64] 64 mg PO TID 12/11/24 02/12/25 History aMILoride HCL 5 mg PO DAILY 12/11/24 02/12/25 History calcitrioL 0.25 mcg PO MOWEFR 12/11/24 02/12/25 History Acetaminophen Tab [Tylenol] 650 mg PO Q6H PRN 02/12/25 02/12/25 History Acyclovir [Zovirax] 400 mg PO BID 02/12/25 02/12/25 History Albuterol Nebulized [Ventolin 2.5 mg INHALATION RT-Q6H PRN 02/12/25 02/12/25 History Nebulized] EPINEPHrine (Auto Inject) [Epipen] 0.3 mg IM ONCE PRN 02/12/25 02/12/25 History Fluconazole [Diflucan] 200 mg PO DAILY 02/12/25 02/12/25 History Levofloxacin [Levaquin] 500 mg PO DAILY 02/12/25 02/12/25 History Loratadine-Pseudoeph 10-240 mg 1 tab PO DAILY 02/12/25 02/12/25 History [Claritin-D 24 Hour] Pantoprazole Sodium [Protonix] 40 mg PO AC-BID 02/12/25 02/12/25 History Potassium Chloride ER [K-Dur 20] 40 meq PO BID 02/12/25 02/12/25 History Venetoclax [Venclexta] 200 mg PO DAILY 02/12/25 02/12/25 History Vitamin B Complex W/Vitamin C 1 tab PO DAILY 02/12/25 02/12/25 History Vitamin D3(Unknown Dose) 1 tab PO DAILY 02/12/25 02/12/25 History allopurinoL [Zyloprim] 300 mg PO DAILY 02/12/25 02/12/25 History oxyCODONE HCL [OxyIR] 5 mg PO Q4H PRN 02/12/25 02/12/25 History Allergies Allergy/AdvReac Type Severity Reaction Status Date / Time adhesive tape Allergy Rash/Hives Verified 02/12/25 18:01 aspirin Allergy Dyspnea Verified 02/12/25 18:01 bacitracin Allergy Rash/Hives Verified 02/12/25 18:01 [From Polysporin(bacitracin base)] morphine Allergy Itching Verified 02/12/25 18:01 nickel Allergy Rash/Hives Verified 02/12/25 18:01 Penicillins Allergy Rapid Verified 02/12/25 18:01 Heart Rate, anxiety attack polymyxin B Allergy Rash/Hives Verified 02/12/25 18:01 [From Polysporin(bacitracin base)] Physical Exam Vitals: Vital Signs Temp Pulse Resp BP Pulse Ox 02/14/25 11:00 100 20 104/70 97 02/14/25 10:47 98.1 F 99 22 99/58 98 02/14/25 10:45 98 18 104/67 97 02/14/25 10:30 98 18 101/67 97 02/14/25 10:27 97.8 F 98 20 98/62 98 02/14/25 10:15 96 18 100/67 98 02/14/25 10:00 101 H 18 95/56 98 02/14/25 09:45 98 15 85/60 97 02/14/25 09:30 101 H 18 90/62 97 02/14/25 09:15 100 18 98/61 97 02/14/25 09:00 99 14 87/58 97 02/14/25 08:45 102 H 26 H 91/59 98 02/14/25 08:30 100 20 91/63 97 02/14/25 08:15 98 17 89/63 97 02/14/25 08:00 101 H 18 90/58 97 02/14/25 07:51 97 02/14/25 07:45 101 H 19 99/62 97 02/14/25 07:30 107 H 10 L 98/67 97 06/06/25 07:15 105 H 11 L 88/57 97 02/14/25 07:00 105 H 13 89/64 98 02/14/25 06:45 104 H 15 105/65 98 02/14/25 06:30 107 H 20 100/63 98 02/14/25 06:10 109 H 31 H 105/70 96 02/14/25 06:00 106 H 20 99/70 100 02/14/25 05:50 105 H 23 103/56 99 02/14/25 05:40 105 H 24 101/73 100 02/14/25 05:30 113 H 18 88/65 91 L 0606 05:20 106 H 24 100/68 97 02/14/25 05:10 104 H 19 106/69 100 02/14/25 05:00 104 H 15 99/65 98 02/14/25 04:50 101 H 12 92/66 99 02/14/25 04:40 101 H 12 94/68 99 02/14/25 04:30 101 H 13 105/70 99 02/14/25 04:20 100 12 102/68 99 02/14/25 04:10 101 H 14 97/64 100 02/14/25 04:00 98.3 F 103 H 17 104/67 98 02/14/25 03:50 100 16 106/66 98 02/14/25 03:40 102 H 21 102/72 97 02/14/25 03:30 101 H 29 H 94/66 97 02/14/25 03:20 96 12 101/59 98 02/14/25 03:10 97 11 L 89/65 97 02/14/25 03:00 96 10 L 97/65 97 02/14/25 02:50 96 11 L 93/64 98 02/14/25 02:40 96 11 L 85/55 98 02/14/25 02:30 96 10 L 84/57 98 02/14/25 02:20 96 10 L 82/59 98 02/14/25 02:10 96 10 L 86/59 98 02/14/25 02:00 97 11 L 83/57 98 02/14/25 01:50 100 14 89/60 97 02/14/25 01:40 98 11 L 89/58 99 02/14/25 01:30 101 H 11 L 83/51 99 06/06/25 01:20 101 H 21 91/61 98 02/14/25 01:10 101 H 28 H 87/61 96 02/14/25 01:00 97.8 F 100 21 82/58 97 02/14/25 00:30 84/56 02/14/25 00:25 86/56 02/14/25 00:20 82/63 02/14/25 00:15 83/61 02/14/25 00:10 86/60 02/13/25 23:59 101 H 16 84/57 96 02/13/25 23:33 101 H 18 82/59 96 02/13/25 23:30 82/63 02/13/25 23:25 84/58 02/13/25 23:20 85/63 02/13/25 23:15 80/60 02/13/25 23:10 80/60 02/13/25 23:05 98.2 F 103 H 16 76/57 97 02/13/25 22:30 65/45 02/13/25 21:28 98.2 F 106 H 18 79/51 94 L 02/13/25 19:33 99.6 F 117 H 16 82/55 95 02/13/25 18:00 103.2 F H 130 H 18 103/62 95 02/13/25 17:00 130 H 18 108/61 94 L 02/13/25 16:08 98/65 02/13/25 15:05 91/56 02/13/25 14:57 94/70 02/13/25 14:00 98 16 80/57 100 02/13/25 12:25 98.5 F 97 18 85/58 96 Intake and Output 02/13/25 02/14/25 02/14/25 22:59 06:59 14:59 Intake Total 766.174 390 Output Total 800 200 0 Balance -800 566.174 390 Intake: IV 675 390 Cefepime 2 gm In Sodium 25 Chloride 0.9% 100 ml @ 25 mls/hr IVPB Q12H [facility] Rx# :[id number] Sodium Chloride 0.9% 1, 650 390 000 ml @ 130 mls/hr IV . Q7H42M [facility] Rx#:[id number] Intake, IV Titration 91.174 Amount Norepinephrine 4 mg In 91.174 Sodium Chloride 0.9% 250 ml @ 0.03 MCG/KG/MIN 10. 162 mls/hr IV .Q24H [facility] Rx#:[id number] Blood Product 0 Unit 0 Output: Urine 800 200 0 Other: Voiding Method Diaper External Catheter # Voids 0 Weight 92.5 kg GENERAL DESCRIPTION: Middle-age female lying in bed, no distress. No tachypnea or accessory muscle of respiration use. HEENT: Shows Pallor , no scleral icterus. Oral mucous membrane is dry. NECK: Trachea central, no thyromegaly. LUNGS: Unlabored breathing. Decreased breath sound at the base HEART: S1, S2, regular rate and rhythm. No loud murmur ABDOMEN: Soft, no tenderness , guarding or rigidity, no organomegaly EXTREMITIES: No edema of feet. SKIN: No rash, no masses palpable. NEUROLOGICAL: The patient is awake, alert, oriented x3, mood and affect normal. Results CBC & Chem 7: 02/16/25 06:32 02/16/25 06:32 Labs: Abnormal Lab Results - Last 24 Hours (Table) 02/14/25 02/14/25 02/14/25 Range/Units 06:17 06:17 07:23 WBC 16.80 H (4.50-10.00) 10*3/uL RBC 2.17 L (4.10-5.20) 10*6/uL Hgb 6.3 L* D (12.0-15.0) g/dL Hct 19.7 L* (37.2-46.3) % RDW 17.3 H (11.5-14.5) % Plt Count 46 L (140-440) 10*3/uL Immature Gran # 0.87 H (0.00-0.04) 10*3/uL Lymphocytes # (Manual) 13.94 H (1.0-4.8) k/uL Monocytes # (Manual) 1.68 H (0-1.0) k/uL Nucleated RBCs 15 H (0-0) /100 WBC Immature Plt Fraction 18.8 H (1.1-6.1) % Sodium 136 L (137-145) mmol/L Carbon Dioxide 16 L (22-30) mmol/L BUN 22 H (7-17) mg/dL Creatinine 1.71 H (0.52-1.04) mg/dL Calcium 8.1 L (8.4-10.2) mg/dL Crossmatch See Detail Microbiology - Last 24 Hours (Table) 02/12/25 17:58 Blood Culture - Preliminary Blood Assessment and Plan (1) Sepsis Current Visit: Yes Status: Acute Code(s): A41.9 - SEPSIS, UNSPECIFIED ORGANISM SNOMED Code(s): 53244433 Plan: 1patient presented hospital with weakness in this patient found to have acute myeloid leukemia for the patient has been on chemotherapy did have a fever tachycardia hyortension meeting ready for SIRS/sepsis, no initial workup has been negative chest x-ray was negative for acute infiltrate UA has been negative abdomen is soft on clinical examination no evidence of any cellulitis or joint swelling 2-patient broadly covered with vancomycin and cefepime to be the patient fever seem to have responded while waiting for the culture to finalize at the bedside multiple question concern answered We will follow on clinical condition and cultures to further adjust medication if needed Thank you for this consultation we will follow the patient along with you Dictation was produced using [employer] dictation software. please excuse any grammatical, word or spelling errors. Time with Patient: Greater than 30
[2025-02-15] MEDS: METOCLOPRAMIDE 5 MG/ML 2 ML VIAL IVP PRN (01:45)
[2025-02-15 04:05] LABS: HCT 23.2 % (37.2-46.3); MCH 29.7 pg (27.0-32.0); MCHC 34.5 g/dL (32.0-37.0); MCV 86.2 fL (80.0-97.0); RBC 2.69 10*6/uL (4.10-5.20)
[2025-02-15 04:22] LABS: Mean Platelet Volume 12.4 fL (9.5-12.2); Platelet Count 50 10*3/uL (140-440)
[2025-02-15 04:30] LABS: African American GFR (CKD) 58 (>60 ml/min/1.73 sqM); Non-African American GFR(CKD) 50 (>60 ml/min/1.73 sqM)
[2025-02-15 04:44] LABS: Metamyelocytes % 1 %; Neutrophils % (M) 5 %
[2025-02-15 04:53] LABS: Nucleated Red Blood Cells 10 /100 WBC (0-0); Total Cells Counted 100
[2025-02-15 04:54] LABS: Blast Cells # (M) 30.68 k/uL (0); Lymphocytes # (M) 3.54 k/uL (1.0-4.8); Metamyelocytes # (M) 0.39 k/uL (0); Monocytes # (M) 2.75 k/uL (0-1.0); Neutrophils # (M) 1.97 k/uL (1.3-7.7); WBC 39.33 10*3/uL (4.50-10.00)
[2025-02-15] MEDS: PANTOPRAZOLE 40 MG/10 ML VIAL IVP SCH (09:38)
[2025-02-15 09:54] LABS: African American GFR (CKD) 54 (>60 ml/min/1.73 sqM); Anion Gap 9 mmol/L; Blood Urea Nitrogen 21 mg/dL (7-17); Calcium 7.8 mg/dL (8.4-10.2); Carbon Dioxide 23 mmol/L (22-30); Chloride 101 mmol/L (98-107); Glucose 139 mg/dL (74-99); Non-African American GFR(CKD) 47 (>60 ml/min/1.73 sqM); Sodium 133 mmol/L (137-145)
[2025-02-15 10:01] LABS: Potassium 2.6 mmol/L (3.5-5.1)
[2025-02-15] MEDS: VANCOMYCIN TROUGH DUE 1 EACH MISC MISCELLANE ONE (10:15)
[2025-02-15] MEDS ORDERED: Potassium Replacement Protocol 1 EACH MISC MISCELLANE PRN ×2 (10:38→11:10)
[2025-02-15] MEDS ORDERED: POTASSIUM CHLORIDE ER 20 MEQ TAB.ER PO SCH (11:00)
--- NOTE | 2025-02-15 11:06 | P.PN ---
Subjective Progress Note Date: 02/15/25 Patient is currently being seen in the emergency department as an overflow for the oncology unit. Admitted back on 02/12/2025 with neutropenic fever. I was contacted as the patient has developed hypotension. She has received several fluid boluses, 4 L of crystalloid fluid in total. Normal saline infusing at 130 mL/h. She is lethargic and diaphoretic, information is being supplemented by who is at bedside. 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 She has been following with out-of-town oncologist, out of the [facility] system. Did reportedly have disease remission. Followed by a bone marrow biopsy late December, showing recurrent disease. [place] [facility]. Reportedly, had blast crisis and had leukapheresis. Ultimately, discharged home last . She has been continued on Venclexta p.o. daily. She reportedly has an appointment with Dr. Antonio to set up infusions locally. 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 Over the last several days patient has developed intermittent fevers, generalized weakness, and heart racing. Presented the emergency department back on 02/12/2025. Found to be febrile and neutropenic. Chemotherapy is on hold. She has been started on empiric antibiotics in the form of cefepime and vancomycin. Chest x-ray does not show any acute cardiopulmonary process. Urinalysis unremarkable for infection. Abdomen is soft, non-tender. Does endorse some nausea without emesis or diarrhea. Appetite has been poor. CBC: WBC count 2.07, hemoglobin 7.9 g/dL, platelets 31,000. Coagulation profile with a PT of 12.9, INR 1.2, APTT 29.4. CMP: Sodium 134, potassium 4.8, chloride 97, serum bicarb 22, BUN 18, creatinine 1.3, blood glucose 136. LFTs not elevated. Troponin less than 0.012. EKG: Sinus tachycardia, rate 132 bpm, no acute ischemic changes. Lactic acid 2 down to 0.7. Currently, patient's blood pressure is 76/57 mmHg and tachycardic. Febrile with a Tmax of 103.3 F. I am recommending that we start the patient on norepinephrine infusion for blood pressure support. She is going to be transferred to the intensive care unit. 02/15/2025, the patient is being seen for a follow-up. On today's evaluation, the patient is awake and alert. She is on 2 L of oxygen by nasal cannula. She remains on bicarb infusion. No pressors. She received a total of 2 units of packed RBC. She continues to be febrile with a Tmax of 101.8. She had a bowel movement. No diarrhea. Procalcitonin level is at 3.8. She is still covered with a combination of cefepime, Levaquin, vancomycin and she is also on acyclovir. Blood work from today shows a white cell count of 39, hemoglobin of 8 and a platelet count of 650. The patient has 78% blasts. Sodium is at 133, potassium is at 2.6, BUN is 21 with a creatinine of 1.2. Creatinine is improved compared to yesterday. Calcium level 7.8. Objective - Vital Signs Vital signs: Vital Signs Temp 101.8 F H 02/15/25 04:00 Pulse 110 H 02/15/25 07:00 Resp 20 02/15/25 07:00 BP 98/67 02/15/25 06:45 Pulse Ox 98 02/15/25 07:33 FiO2 Intake & Output 02/14/25 02/15/25 02/15/25 18:59 06:59 18:59 Intake Total 4961.333 3988.185 Output Total 500 650 Balance 1287.391 975.185 Weight 96.5 kg Intake: IV 1390 1300 Cefepime 2 gm In Sodium 100 Chloride 0.9% 100 ml @ 25 mls/hr IVPB Q12H [facility] Rx# :[id number] Dextrose 5% in Water 1, 400 1300 000 ml @ 100 mls/hr IV . [id number] [facility] with Sodium Bicarb (1 Meq/ml) 150 ml Rx#:[id number] Sodium Chloride 0.9% 1, 390 000 ml @ 130 mls/hr IV . [id number] [facility] Rx#:[id number] Vancomycin 1,500 mg In 500 Sodium Chloride 0.9% 500 ml 500 ml @ 167 mls/hr IVPB Q24H [facility] Rx#: [id number] Intake, IV Titration 87.391 15.185 Amount Norepinephrine 4 mg In 87.391 15.185 Sodium Chloride 0.9% 250 ml @ 0.03 MCG/KG/MIN 10. 162 mls/hr IV .Q24H [facility] Rx#:[id number] Blood Product 310 310 Rc As-1 Unit 310 [id number] Rc Irr As1 Unit 0 310 [id number] Output: Urine 500 650 Other: Voiding Method Diaper Diaper External Catheter External Catheter # Voids 0 # Bowel Movements 1 - Exam GENERAL EXAM: Lethargic, 59-year-old obese female, diaphoretic and awake alert and communicating, currently on 2 L of oxygen by nasal cannula HEAD: Normocephalic and atraumatic EYES: Normal reaction of pupils, equal size. NOSE: Clear with pink turbinates. THROAT: No erythema or exudates. NECK: No masses, no JVD. CHEST: No chest wall deformity. LUNGS: Equal air entry with no crackles, wheeze, rhonchi or dullness. On 2 L/min nasal cannula. SpO2 reading 96% on bedside monitor. No conversational dyspnea or accessory muscle use.. CVS: S1 and S2 normal with no audible murmur, regular rhythm. No extra heart sounds ABDOMEN: No hepatosplenomegaly, active bowel sounds, no guarding or rigidity. SPINE: No scoliosis or deformity SKIN: No rashes CENTRAL NERVOUS SYSTEM: No focal deficits, tone is normal in all 4 extremities. EXTREMITIES: There is no peripheral edema, clubbing, or cyanosis. Peripheral pulses are intact. - Labs CBC & Chem 7: 02/15/25 03:45 02/15/25 09:18 Labs: Abnormal Lab Results - Last 24 Hours (Table) 02/14/25 02/14/25 02/14/25 Range/Units 06:17 06:17 06:17 WBC 16.80 H (4.50-10.00) 10*3/uL RBC (4.10-5.20) 10*6/uL Hgb (12.0-15.0) g/dL Hct 19.7 L* (37.2-46.3) % Plt Count 46 L (140-440) 10*3/uL MPV (9.5-12.2) fL Blast Cells % % Immature Gran # (0.00-0.04) 10*3/uL Neutrophils # (1.80-7.70) 10*3/uL Lymphocytes # (0.90-5.00) 10*3/uL Lymphocytes # (Manual) 13.94 H (1.0-4.8) k/uL Monocytes # (0.20-1.00) 10*3/uL Monocytes # (Manual) 1.68 H (0-1.0) k/uL Metamyelocytes # (Man) (0) k/uL Blast Cells # (Man) (0) k/uL Nucleated RBCs 15 H (0-0) /100 WBC Immature Plt Fraction (1.1-6.1) % Sodium 136 L (137-145) mmol/L Carbon Dioxide 16 L (22-30) mmol/L BUN 22 H (7-17) mg/dL Creatinine 1.71 H (0.52-1.04) mg/dL Calcium 8.1 L (8.4-10.2) mg/dL Procalcitonin 3.89 H (0.02-0.50) ng/mL Crossmatch 02/14/25 02/14/25 02/15/25 Range/Units 07:23 15:43 03:45 WBC 24.31 H (4.50-10.00) 10*3/uL RBC 2.31 L (4.10-5.20) 10*6/uL Hgb 6.9 L* (12.0-15.0) g/dL Hct 20.3 L (37.2-46.3) % Plt Count 48 L (140-440) 10*3/uL MPV (9.5-12.2) fL Blast Cells % % Immature Gran # 1.37 H (0.00-0.04) 10*3/uL Neutrophils # 1.40 L (1.80-7.70) 10*3/uL Lymphocytes # 5.87 H (0.90-5.00) 10*3/uL Lymphocytes # (Manual) (1.0-4.8) k/uL Monocytes # 15.56 H (0.20-1.00) 10*3/uL Monocytes # (Manual) (0-1.0) k/uL Metamyelocytes # (Man) (0) k/uL Blast Cells # (Man) (0) k/uL Nucleated RBCs (0-0) /100 WBC Immature Plt Fraction 16.4 H (1.1-6.1) % Sodium (137-145) mmol/L Carbon Dioxide (22-30) mmol/L BUN (7-17) mg/dL Creatinine 1.20 H (0.52-1.04) mg/dL Calcium (8.4-10.2) mg/dL Procalcitonin (0.02-0.50) ng/mL Crossmatch See Detail 02/15/25 Range/Units 03:45 WBC 39.33 H (4.50-10.00) 10*3/uL RBC 2.69 L (4.10-5.20) 10*6/uL Hgb 8.0 L (12.0-15.0) g/dL Hct 23.2 L (37.2-46.3) % Plt Count 50 L (140-440) 10*3/uL MPV 12.4 H (9.5-12.2) fL Blast Cells % 78 H* % Immature Gran # 1.03 H (0.00-0.04) 10*3/uL Neutrophils # (1.80-7.70) 10*3/uL Lymphocytes # (0.90-5.00) 10*3/uL Lymphocytes # (Manual) (1.0-4.8) k/uL Monocytes # (0.20-1.00) 10*3/uL Monocytes # (Manual) 2.75 H (0-1.0) k/uL Metamyelocytes # (Man) 0.39 H (0) k/uL Blast Cells # (Man) 30.68 H (0) k/uL Nucleated RBCs 10 H (0-0) /100 WBC Immature Plt Fraction (1.1-6.1) % Sodium (137-145) mmol/L Carbon Dioxide (22-30) mmol/L BUN (7-17) mg/dL Creatinine (0.52-1.04) mg/dL Calcium (8.4-10.2) mg/dL Procalcitonin (0.02-0.50) ng/mL Crossmatch Microbiology - Last 24 Hours (Table) 02/12/25 17:58 Blood Culture - Preliminary Blood Assessment and Plan Assessment: Neutropenic sepsis/septic shock, neutropenia has recovered. Currently patient is significant leukocytosis with blasts in the order of 78%. Acute leukocytosis with 78% blasts, rule out blast crisis Sepsis, likely bacterial with elevated procalcitonin level. Currently on broad- spectrum antibiotics. Not requiring any pressors. Acute febrile illness AML, with reportedly with previous disease remission and reoccurrence, recently admitted at the [facility] on January for treatment reinduction. Also, had Blast cell crisis in leukapheresis. Eventually discharged last to continue on p.o. Venclexta. She was to be established with local medical oncology for IV infusions. The patient has acute leukocytosis with 70% blast Acute anemia secondary to above, posttransfusion with 2 units of packed RBC Thrombocytopenia Acute kidney injury, secondary to hypotension and ATN, improving History of DVT/PE, anticoagulated on Eliquis and has an IVC filter Hypothyroidism History of intermittent asthma, inactive History of Crohn's disease Plan: Continue IV fluids and switch this patient to normal saline at rate of 150 cc an hour Pressors if needed Continue broad-spectrum empiric antibiotics, currently on a combination of cefepime vancomycin and Levaquin. Patient is also on acyclovir. Blood cultures pending Tylenol as needed for fevers Venclexta on hold, awaiting further guidance from hematology oncology. Monitor blood cell counts, Eliquis is on hold. Renal function is improving. Oxygenation stable. Will continue to follow and the patient will be kept in ICU for now. Condition is obviously critical. Time with Patient: Greater than 30
[2025-02-15] MEDS: POTASSIUM CHLORIDE 10 MEQ in WATER FOR INJECTION 1 100ML.BAG IVPB SCH (11:34)
[2025-02-15] MEDS: SODIUM CHLORIDE 0.9% 1,000 ML IV ONE (12:20)
[2025-02-15] MEDS: MAGNESIUM SULFATE-D5W PMX 1 GM in DEXTROSE/WATER 1 100ML.BAG IVPB SCH (15:45)
--- NOTE | 2025-02-15 15:46 | P.PN ---
Subjective Progress Note Date: 02/15/25 Patient is a 59-year-old male with relasped AML on chemotherapy, asthma, Crohn's disease, history of DVT and PE with IVC filter and anticoagulation on Eliquis here for evaluation of fever. Patient reported that the fever started yesterday with associated nausea and palpitations. She had history of neutropenic fever about 3 weeks ago and treated in [facility]. She also reported chest pain during time of evaluation. She denied shortness of breath, cough, changes in urination or defecation, extremity swelling, abdominal pain, recent trauma or fall. On admission: Vitals: Temp 100.4, CT 129, RR 20, BP 122/75, O2 saturation 96% on room air Labs: WBC 2.07, hemoglobin 7.9, platelet count 31,000, sodium 134, potassium 4.8, chloride 97, BUN 18, creatinine 1.3, glucose 136, lactic acid 2, calcium 9.2, alk phos 143, AST 19, ALT 12, albumin 4.6. Troponin negative. Urinalysis showed trace protein, trace blood, negative nitrites, negative leukocyte esterase. Imaging: Chest x-ray showed no acute pulmonary process. Initial EKG showed sinus tachycardia with a rate of 132, no ST-T changes, QTc 372 MS. Second EKG showed sinus tachycardia with a rate of 132, normal axis, no ST-T changes, QTc 389 MS. 02/14/2025 patient seen and examined at bedside. Patient was sent to the ICU yesterday evening for hypotension despite 4 L of IV fluid boluses. Labs: Labs today showed WBC 16.8, hemoglobin 6.3, MCV 90.8, platelet count 46,000, sodium 136, potassium 4, chloride 106, bicarb 16, BUN 22, creatinine 1.7, glucose 86, calcium 8.1 02/15/2025 patient seen and examined at bedside. Patient still in the ICU. Required 1 more unit of PRBC overnight. Complains of nausea and vomiting Labs: WBC 39.3, hemoglobin 8, platelet count 50,000, sodium 133, potassium 2.6, chloride 101, bicarb 23, BUN 21 creatinine 1.2, glucose 139, calcium 7.8 Review of systems: Pertinent positives and negatives as discussed in HPI, a complete review of systems was performed and all other systems are negative. Physical examination: Vital signs reviewed General: non toxic, no distress, older than stated age, on 2L nasal cannula Derm: no unusual rashes/lesions, warm Head: atraumatic, normocephalic, symmetric Eyes: EOMI, anicteric sclera, pupils equal round reactive to light ENT: Nose and ears atraumatic Neck: No cervical lymphadenopathy, trachea midline, supple Mouth: no lip lesion, mucus membranes moist Cardiovascular: S1S2 reg, no murmur Lungs: CTA bilateral, no rhonchi, no rales, no accessory muscle use Abdominal: soft, nondistended, nontender to palpation, no guarding Ext: muscle strength 5 out of 5 in all 4 extremities grossly, no gross muscle atrophy, no contractures, positive dorsalis pedis pulse bilateral, bilateral lower extremity +1 pitting edema Neuro: CN II-XI grossly intact, no gross focal neuro deficits Psych: Alert and oriented x 3, appropriate affect and mood Assessment/Plan: The patient is admitted with an anticipated greater than 2 midnight stay for evaluation of neutropenic fever Active: #. Severe Neutropenic fever #. Acute myeloid leukemia currently taking chemotherapy #. Pancytopenia secondary to above, status post 2 units PRBC transfusion #. Anion gap metabolic acidosis MASCC 19, not low risk Hemoglobin 8 today. Required 2 unit pRBC WBC increased to 39.33, blast cells 78% Continue on empiric cefepime and vancomycin IV Hold home acyclovir and levofloxacin prophylaxis Currently on bicarb drip and Levophed drip in the ICU. Weaning off pressors. Continue with IV and p.o. pain control and nausea management Blood cultures pending Pulmonology consulted for ICU care Oncology consulted Infectious disease consulted #. Hypokalemia Potassium 2.6 today Initiated potassium replacement protocol. Given 60 mEq potassium chloride p.o. Switch to IV if cannot be tolerated Check magnesium. If low, will replete #. Hypocalcemia Calcium 7.8 today Checked ionized calcium #. Chest pain, ACS ruled out Cardiac monitoring Supplemental oxygen as needed Troponin negative EKG showed sinus tachycardia with a rate of 132, no ST-T changes, QTc 372 MS. EKG as needed Cardiology consulted. ACS has been ruled out. Have signed off #. Acute on CKD stage III, baseline Creatinine today 1.2 Avoid nephrotoxic agents Monitor urine output and renal function Chronic Conditions: #. Asthma #. Crohn's disease #. History of DVT and PE -Eliquis held due to thrombocytopenia -Continue with home calcitriol, Protonix 40 mg p.o. twice daily DVT ppx: SCDs CODE STATUS: Full Discussed with: Patient patient's partner Anticipated discharge place: Pending clinical course Amber Felix MD PGY-1 Internal Medicine Dictation was produced using [employer] dictation software. please excuse any grammatical, word or spelling errors. Objective - Vital Signs Vital signs: Vital Signs Temp 101.8 F H 02/15/25 04:00 Pulse 110 H 02/15/25 07:00 Resp 20 02/15/25 07:00 BP 98/67 02/15/25 06:45 Pulse Ox 98 02/15/25 07:33 FiO2 Intake & Output 02/14/25 02/15/25 02/15/25 18:59 06:59 18:59 Intake Total 2102.384 6323.185 Output Total 500 650 Balance 1287.391 975.185 Weight 96.5 kg Intake: IV 1390 1300 Cefepime 2 gm In Sodium 100 Chloride 0.9% 100 ml @ 25 mls/hr IVPB Q12H [facility] Rx# :[id number] Dextrose 5% in Water 1, 400 1300 000 ml @ 100 mls/hr IV . [id number] [facility] with Sodium Bicarb (1 Meq/ml) 150 ml Rx#:[id number] Sodium Chloride 0.9% 1, 390 000 ml @ 130 mls/hr IV . Q7H42M [facility] Rx#:[id number] Vancomycin 1,500 mg In 500 Sodium Chloride 0.9% 500 ml 500 ml @ 167 mls/hr IVPB Q24H [facility] Rx#: [id number] Intake, IV Titration 87.391 15.185 Amount Norepinephrine 4 mg In 87.391 15.185 Sodium Chloride 0.9% 250 ml @ 0.03 MCG/KG/MIN 10. 162 mls/hr IV .Q24H [facility] Rx#:[id number] Blood Product 310 310 Rc As-1 Unit 310 [id number] Rc Irr As1 Unit 0 310 [id number] Output: Urine 500 650 Other: Voiding Method Diaper Diaper External Catheter External Catheter # Voids 0 # Bowel Movements 1 - Labs CBC & Chem 7: 02/17/25 04:20 02/17/25 09:41 Labs: Abnormal Lab Results - Last 24 Hours (Table) 02/14/25 02/14/25 02/14/25 Range/Units 06:17 06:17 07:23 WBC 16.80 H (4.50-10.00) 10*3/uL RBC (4.10-5.20) 10*6/uL Hgb (12.0-15.0) g/dL Hct 19.7 L* (37.2-46.3) % Plt Count 46 L (140-440) 10*3/uL MPV (9.5-12.2) fL Blast Cells % % Immature Gran # (0.00-0.04) 10*3/uL Neutrophils # (1.80-7.70) 10*3/uL Lymphocytes # (0.90-5.00) 10*3/uL Lymphocytes # (Manual) 13.94 H (1.0-4.8) k/uL Monocytes # (0.20-1.00) 10*3/uL Monocytes # (Manual) 1.68 H (0-1.0) k/uL Metamyelocytes # (Man) (0) k/uL Blast Cells # (Man) (0) k/uL Nucleated RBCs 15 H (0-0) /100 WBC Immature Plt Fraction (1.1-6.1) % Creatinine (0.52-1.04) mg/dL Procalcitonin 3.89 H (0.02-0.50) ng/mL Crossmatch See Detail 02/14/25 02/15/25 02/15/25 Range/Units 15:43 03:45 03:45 WBC 24.31 H 39.33 H (4.50-10.00) 10*3/uL RBC 2.31 L 2.69 L (4.10-5.20) 10*6/uL Hgb 6.9 L* 8.0 L (12.0-15.0) g/dL Hct 20.3 L 23.2 L (37.2-46.3) % Plt Count 48 L 50 L (140-440) 10*3/uL MPV 12.4 H (9.5-12.2) fL Blast Cells % 78 H* % Immature Gran # 1.37 H 1.03 H (0.00-0.04) 10*3/uL Neutrophils # 1.40 L (1.80-7.70) 10*3/uL Lymphocytes # 5.87 H (0.90-5.00) 10*3/uL Lymphocytes # (Manual) (1.0-4.8) k/uL Monocytes # 15.56 H (0.20-1.00) 10*3/uL Monocytes # (Manual) 2.75 H (0-1.0) k/uL Metamyelocytes # (Man) 0.39 H (0) k/uL Blast Cells # (Man) 30.68 H (0) k/uL Nucleated RBCs 10 H (0-0) /100 WBC Immature Plt Fraction 16.4 H (1.1-6.1) % Creatinine 1.20 H (0.52-1.04) mg/dL Procalcitonin (0.02-0.50) ng/mL Crossmatch Microbiology - Last 24 Hours (Table) 02/12/25 17:58 Blood Culture - Preliminary Blood Assessment and Plan Assessment: Attestation Attestation/ Proposal Analyst Note: Attestation to progress Note, Participation (I saw and evaluated the patient with the Resident, and I reviewed and discussed the patient with the Resident and agree with the Resident's findings and plans as documented above., management reviewed and discussed), I agree with findings & plan, Provider Signature (ALFIE PETERS, RUBY Shabazz Time with Patient: Greater than 30
--- NOTE | 2025-02-15 16:08 | P.PN ---
Subjective Progress Note Date: 02/15/25 Principal diagnosis: AML, febrile In f/u today pt is having dry heaves, she is lethargic. WBC is 39, blast 78% Objective - Vital Signs Vital signs: Vital Signs Temp 98.9 F 02/15/25 12:00 Pulse 46 L 02/15/25 15:45 Resp 22 02/15/25 14:00 BP 100/61 02/15/25 15:45 Pulse Ox 97 02/15/25 15:45 FiO2 Intake & Output 02/14/25 02/15/25 02/15/25 18:59 06:59 18:59 Intake Total 9343.819 2796.185 1800 Output Total 500 650 50 Balance 1287.391 889.446 6938 Weight 96.5 kg Intake: IV 1390 1300 1800 Cefepime 2 gm In Sodium 100 100 Chloride 0.9% 100 ml @ 25 mls/hr IVPB Q12H [facility] Rx# :[id number] Dextrose 5% in Water 1, 400 1300 800 000 ml @ 100 mls/hr IV . [id number] [facility] with Sodium Bicarb (1 Meq/ml) 150 ml Rx#:[id number] Magnesium Sulfate-D5w Pmx 100 1 gm In Dextrose/Water 1 100ml.bag @ 100 mls/hr IVPB Q1H [facility] Rx#: [id number] Potassium Chloride 10 meq 300 In Water For Injection 1 100ml.bag @ 100 mls/hr IVPB Q1HR [facility] Rx#: [id number] Sodium Chloride 0.9% 1, 390 000 ml @ 130 mls/hr IV . Q7H42M [facility] Rx#:[id number] Vancomycin 1,500 mg In 500 500 Sodium Chloride 0.9% 500 ml 500 ml @ 167 mls/hr IVPB Q24H [facility] Rx#: [id number] Intake, IV Titration 87.391 15.185 Amount Norepinephrine 4 mg In 87.391 15.185 Sodium Chloride 0.9% 250 ml @ 0.03 MCG/KG/MIN 10. 162 mls/hr IV .Q24H [facility] Rx#:[id number] Blood Product 310 310 Rc As-1 Unit 310 [id number] Rc Irr As1 Unit 0 310 [id number] Output: Urine 500 650 50 Other: Voiding Method Diaper Diaper External Catheter External Catheter # Voids 0 # Bowel Movements 1 - Constitutional General appearance: Present: average body habitus, no acute distress - EENT Eyes: Present: scleral icterus ENT: Present: hearing grossly normal - Respiratory Respiratory: bilateral: diminished - Cardiovascular Details: tachycardia - Musculoskeletal Musculoskeletal: Present: generalized weakness - Psychiatric Psychiatric Comment(s): lethargic, does answer questions appropriately - Labs CBC & Chem 7: 02/15/25 03:45 02/15/25 09:18 Labs: Abnormal Lab Results - Last 24 Hours (Table) 02/14/25 02/14/25 02/15/25 Range/Units 07:23 15:43 03:45 WBC 24.31 H (4.50-10.00) 10*3/uL RBC 2.31 L (4.10-5.20) 10*6/uL Hgb 6.9 L* (12.0-15.0) g/dL Hct 20.3 L (37.2-46.3) % Plt Count 48 L (140-440) 10*3/uL MPV (9.5-12.2) fL Blast Cells % % Immature Gran # 1.37 H (0.00-0.04) 10*3/uL Neutrophils # 1.40 L (1.80-7.70) 10*3/uL Lymphocytes # 5.87 H (0.90-5.00) 10*3/uL Monocytes # 15.56 H (0.20-1.00) 10*3/uL Monocytes # (Manual) (0-1.0) k/uL Metamyelocytes # (Man) (0) k/uL Blast Cells # (Man) (0) k/uL Nucleated RBCs (0-0) /100 WBC Immature Plt Fraction 16.4 H (1.1-6.1) % Sodium (137-145) mmol/L Potassium (3.5-5.1) mmol/L BUN (7-17) mg/dL Creatinine 1.20 H (0.52-1.04) mg/dL Glucose (74-99) mg/dL Calcium (8.4-10.2) mg/dL Ionized Calcium Aaliyah (4.5-5.3) mg/dL Magnesium (1.6-2.3) mg/dL Crossmatch See Detail 02/15/25 02/15/25 02/15/25 Range/Units 03:45 09:18 11:45 WBC 39.33 H (4.50-10.00) 10*3/uL RBC 2.69 L (4.10-5.20) 10*6/uL Hgb 8.0 L (12.0-15.0) g/dL Hct 23.2 L (37.2-46.3) % Plt Count 50 L (140-440) 10*3/uL MPV 12.4 H (9.5-12.2) fL Blast Cells % 78 H* % Immature Gran # 1.03 H (0.00-0.04) 10*3/uL Neutrophils # (1.80-7.70) 10*3/uL Lymphocytes # (0.90-5.00) 10*3/uL Monocytes # (0.20-1.00) 10*3/uL Monocytes # (Manual) 2.75 H (0-1.0) k/uL Metamyelocytes # (Man) 0.39 H (0) k/uL Blast Cells # (Man) 30.68 H (0) k/uL Nucleated RBCs 10 H (0-0) /100 WBC Immature Plt Fraction (1.1-6.1) % Sodium 133 L (137-145) mmol/L Potassium 2.6 L* (3.5-5.1) mmol/L BUN 21 H (7-17) mg/dL Creatinine 1.27 H (0.52-1.04) mg/dL Glucose 139 H (74-99) mg/dL Calcium 7.8 L (8.4-10.2) mg/dL Ionized Calcium Aaliyah (4.5-5.3) mg/dL Magnesium 1.1 L (1.6-2.3) mg/dL Crossmatch 02/15/25 Range/Units 11:45 WBC (4.50-10.00) 10*3/uL RBC (4.10-5.20) 10*6/uL Hgb (12.0-15.0) g/dL Hct (37.2-46.3) % Plt Count (140-440) 10*3/uL MPV (9.5-12.2) fL Blast Cells % % Immature Gran # (0.00-0.04) 10*3/uL Neutrophils # (1.80-7.70) 10*3/uL Lymphocytes # (0.90-5.00) 10*3/uL Monocytes # (0.20-1.00) 10*3/uL Monocytes # (Manual) (0-1.0) k/uL Metamyelocytes # (Man) (0) k/uL Blast Cells # (Man) (0) k/uL Nucleated RBCs (0-0) /100 WBC Immature Plt Fraction (1.1-6.1) % Sodium (137-145) mmol/L Potassium (3.5-5.1) mmol/L BUN (7-17) mg/dL Creatinine (0.52-1.04) mg/dL Glucose (74-99) mg/dL Calcium (8.4-10.2) mg/dL Ionized Calcium Aaliyah 4.4 L (4.5-5.3) mg/dL Magnesium (1.6-2.3) mg/dL Crossmatch Microbiology - Last 24 Hours (Table) 02/12/25 17:58 Blood Culture - Preliminary Blood Assessment and Plan (1) Neutropenic fever Current Visit: Yes Status: Acute Priority: High Code(s): D70.9 - NEUTROPENIA, UNSPECIFIED; R50.81 - FEVER PRESENTING WITH CONDITIONS CLASSIFIED E LSEWHERE SNOMED Code(s): 760937397 (2) AML (acute myelogenous leukemia) Current Visit: Yes Status: Acute Priority: High Code(s): C92.00 - ACUTE MYELOBLASTIC LEUKEMIA, NOT HAVING ACHIEVED REMISSION SNOMED Code(s): 92562828 Plan: Fever/febrile neutropenia -Fevers persist - Pancultures so far neg - Cefepime and vancomycin ordered -ID consulted -May be 2/2 malignancy Acute myeloid leukemia - Diagnosis and treatment as stated in consult - WBC/blasts have exponentially increased in the last 24 hours. Venclexta resumed. -If pt WBC/blast count does not come down/worsens, may have to consider transfer to facility for leukophoresis-which she has had in the past Bicytopenia-leukocytosis -2/2 medications and disease -Transfuse with irradiated blood products only. -Transfuse for hemoglobin less than 7 or if symptomatic. -Transfuse for platelets less than 10,000 or if symptomatic. Eliquis held for platelets less than 50,000. -CBC daily. -Leukocytosis-2/2 disease, venclexta restarted Due to pt MAR (which said is not common for her) and Hx of brain bleed, CT head without contrast ordered
[2025-02-15] MEDS: NOREPINEPHRINE 8 MG in SODIUM CHLORIDE 0.9% 250 ML IV SCH (16:28)
[2025-02-15] MEDS: THYROID PORK 90 MG PO SCH (16:37)
--- NOTE | 2025-02-15 17:36 | CT ---
EXAMINATION TYPE: CT brain wo con CT DLP: 1139.5 mGycm, Automated exposure control for dose reduction was used. DATE OF EXAM: 02/15/2025 5:18 PM COMPARISON: None. CLINICAL INDICATION:Female, 59 years old with history of Hx cerebral hemorrhage, pt c/o MAR, Hx cerebr al hemorrhage, pt c/o MAR TECHNIQUE: Brain: Axial CT images of the brain were obtained with coronal and sagittal reformats created and rev iewed. Contrast used: None. Oral contrast used: None. FINDINGS: Brain: Extra-axial spaces: No abnormal extra-axial fluid collections. Ventricular system: Within normal limits Cerebral parenchyma: No acute intraparenchymal hemorrhage. The cerebral sulci differentiation is elvin ewhat obscured. The dugan-white differentiation is maintained.The basilar cisterns are maintained Cerebellum: Unremarkable. Mass effect: No evidence of midline shift. Intracranial vasculature: Atherosclerotic calcifications of the intracranial vessels. Soft tissues: Normal. Calvarium/osseous structures: No depressed skull fracture. Paranasal sinuses and mastoid air cells: Mild scattered paranasal sinus disease. Visualized orbits: Orbital contents are intact. IMPRESSION: There is somewhat subtle obscurity of the cerebral sulci differentiation which can sometimes be seen in the setting of cerebral edema or relate to patient's cerebral anatomy. Correlate for any precipita ting cause for this. If clinical concern or symptomatology persists recommend brain MRI for further e valuation. No other acute intracranial process is appreciated. [facility], , 02/15/2025 5:34 PM
[2025-02-15] MEDS: NON FORMULARY DRUG (Venetoclax [Venclexta] 100 MG Tablet) PO SCH (17:52)
[2025-02-15] MEDS: PROCHLORPERAZINE 10 MG TAB PO PRN (17:53)
[2025-02-15] MEDS: ACETAMINOPHEN IV (For NPO) 1,000 MG in EMPTY BAG 1 BAG IVPB PRN (19:44)
[2025-02-15] MEDS: ONDANSETRON 4 MG/2 ML VIAL IVP PRN (21:04)
[2025-02-16] MEDS ORDERED: POTASSIUM CHLORIDE 20 MEQ in WATER FOR INJECTION 1 100ML.BAG IVPB SCH (00:15)
[2025-02-16] MEDS: POTASSIUM CHLORIDE ER 20 MEQ TAB.ER PO ONE (00:30)
[2025-02-16] MEDS: POTASSIUM CHLORIDE 20 MEQ in WATER FOR INJECTION 1 100ML.BAG IVPB SCH ×2 (01:03→20:38)
[2025-02-16] MEDS: MAGNESIUM SULFATE-D5W PMX 1 GM in DEXTROSE/WATER 1 100ML.BAG IVPB ONE (02:02)
[2025-02-16] MEDS: VANCOMYCIN 1,500 MG in SODIUM CHLORIDE 0.9% 500 ML 500 ML IVPB SCH (04:10)
[2025-02-16 08:19] LABS: African American GFR (CKD) 65 (>60 ml/min/1.73 sqM); Anion Gap 10 mmol/L; Blood Urea Nitrogen 16 mg/dL (7-17); Calcium 8.1 mg/dL (8.4-10.2); Carbon Dioxide 26 mmol/L (22-30); Chloride 97 mmol/L (98-107); Glucose 127 mg/dL (74-99); Magnesium 1.8 mg/dL (1.6-2.3); Non-African American GFR(CKD) 56 (>60 ml/min/1.73 sqM); Sodium 133 mmol/L (137-145)
[2025-02-16 08:22] LABS: Potassium 2.5 mmol/L (3.5-5.1)
[2025-02-16 08:24] LABS: HGB 8.4 g/dL (12.0-15.0); MCV 82.8 fL (80.0-97.0); Mean Platelet Volume 11.9 fL (9.5-12.2); RDW 16.3 % (11.5-14.5)
[2025-02-16 08:53] LABS: Metamyelocytes % 1 %; Neutrophils % (M) 1 %; Nucleated Red Blood Cells 8 /100 WBC (0-0); Total Cells Counted 200
[2025-02-16] MEDS: LACTATED RINGERS 1,000 ML IV SCH (08:53)
[2025-02-16 08:54] LABS: Blast Cells # (M) 83.72 k/uL (0); Lymphocytes # (M) 26.02 k/uL (1.0-4.8); Metamyelocytes # (M) 1.13 k/uL (0); Monocytes # (M) 2.26 k/uL (0-1.0); Neutrophils # (M) 1.13 k/uL (1.3-7.7); Platelet Count 80 10*3/uL (140-440); WBC 113.13 10*3/uL (4.50-10.00)
[2025-02-16] MEDS: HYDROXYUREA 500 MG CAP PO SCH (09:54)
[2025-02-16 10:06] LABS: Uric Acid 3.5 mg/dL (3.7-7.4)
[2025-02-16 10:09] LABS: Phosphorus <0.5 mg/dL (2.5-4.5)
[2025-02-16] MEDS ORDERED: Phosphorus Replacement Protoco 1 EACH MISC MISCELLANE PRN (10:19)
[2025-02-16] MEDS: SODIUM PHOSPHATE 60 MMOL in DEXTROSE 5% IN WATER 250 ML IVPB ONE (10:55)
--- NOTE | 2025-02-16 12:10 | P.PN ---
Subjective Progress Note Date: 02/16/25 Patient is currently being seen in the emergency department as an overflow for the oncology unit. Admitted back on 02/12/2025 with neutropenic fever. I was contacted as the patient has developed hypotension. She has received several fluid boluses, 4 L of crystalloid fluid in total. Normal saline infusing at 130 mL/h. She is lethargic and diaphoretic, information is being supplemented by who is at bedside. 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 She has been following with out-of-town oncologist, out of the [facility] system. Did reportedly have disease remission. Followed by a bone marrow biopsy late December, showing recurrent disease. She was hospitalized at [facility] on January for chemo reinduction. Reportedly, had blast crisis and had leukapheresis. Ultimately, discharged home last . She has been continued on Venclexta p.o. daily. She reportedly has an appointment with Dr. Antonio to set up infusions locally. 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 Over the last several days patient has developed intermittent fevers, generalized weakness, and heart racing. Presented the emergency department back on 02/12/2025. Found to be febrile and neutropenic. Chemotherapy is on hold. She has been started on empiric antibiotics in the form of cefepime and vancomycin. Chest x-ray does not show any acute cardiopulmonary process. Urinalysis unremarkable for infection. Abdomen is soft, non-tender. Does endorse some nausea without emesis or diarrhea. Appetite has been poor. CBC: WBC count 2.07, hemoglobin 7.9 g/dL, platelets 31,000. Coagulation profile with a PT of 12.9, INR 1.2, APTT 29.4. CMP: Sodium 134, potassium 4.8, chloride 97, serum bicarb 22, BUN 18, creatinine 1.3, blood glucose 136. LFTs not elevated. Troponin less than 0.012. EKG: Sinus tachycardia, rate 132 bpm, no acute ischemic changes. Lactic acid 2 down to 0.7. Currently, patient's blood pressure is 76/57 mmHg and tachycardic. Febrile with a Tmax of 103.3 F. I am recommending that we start the patient on norepinephrine infusion for blood pressure support. She is going to be transferred to the intensive care unit. 02/15/2025, the patient is being seen for a follow-up. On today's evaluation, the patient is awake and alert. She is on 2 L of oxygen by nasal cannula. She remains on bicarb infusion. No pressors. She received a total of 2 units of packed RBC. She continues to be febrile with a Tmax of 101.8. She had a bowel movement. No diarrhea. Procalcitonin level is at 3.8. She is still covered with a combination of cefepime, Levaquin, vancomycin and she is also on acyclovir. Blood work from today shows a white cell count of 39, hemoglobin of 8 and a platelet count of 650. The patient has 78% blasts. Sodium is at 133, potassium is at 2.6, BUN is 21 with a creatinine of 1.2. Creatinine is improved compared to yesterday. Calcium level 7.8. On 02/16/2025, the patient is lethargic, weak, having nausea, having dry heaves, headaches and diffuse bodyaches. Hematologic profile is worse. The patient is in acute blast crisis. The white cell count is up 213, with a 74% blasts and the patient has a hemoglobin of 8.4 and a platelet count of 80,000. Sodium is 133, electrolytes are normal and the potassium and phosphorus needs to be replaced. Potassium levels of 2.5 phosphorus is less than 0.5. BUN 16 with a creatinine of 1.09. The patient received a total of 80 mEq of potassium overnight and the potassium remains low. She is on no pressors. She remains on oxygen 2 L/min nasal cannula. She remains on a bicarb infusion which is running at 100 cc an hour. Antibiotic coverage was unchanged and the patient remains on IV cefepime, Levaquin, vancomycin and acyclovir. She is having low-grade fevers with a Tmax of 100.3. She is in sinus tachycardia. Objective - Vital Signs Vital signs: Vital Signs Temp 98.7 F 02/16/25 04:00 Pulse 124 H 02/16/25 07:00 Resp 20 02/16/25 07:00 BP 102/72 02/16/25 07:00 Pulse Ox 93 L 02/16/25 07:00 FiO2 Intake & Output 02/15/25 02/16/25 02/16/25 18:59 06:59 18:59 Intake Total 2400 1400 100 Output Total 125 150 0 Balance 2275 1250 100 Intake: IV 2400 1400 100 Cefepime 2 gm In Sodium 100 Chloride 0.9% 100 ml @ 25 mls/hr IVPB Q12H [facility] Rx# :[id number] Dextrose 5% in Water 1, 1100 1200 100 000 ml @ 100 mls/hr IV . [id number] [facility] with Sodium Bicarb (1 Meq/ml) 150 ml Rx#:[id number] Magnesium Sulfate-D5w Pmx 200 1 gm In Dextrose/Water 1 100ml.bag @ 100 mls/hr IVPB Q1H [facility] Rx#: [id number] Potassium Chloride 10 meq 500 200 In Water For Injection 1 100ml.bag @ 100 mls/hr IVPB Q1HR [facility] Rx#: [id number] Vancomycin 1,500 mg In 500 Sodium Chloride 0.9% 500 ml 500 ml @ 167 mls/hr IVPB Q24H [facility] Rx#: [id number] Output: Urine 125 150 0 Other: Voiding Method Diaper Diaper External Catheter External Catheter - Exam GENERAL EXAM: Lethargic, 59-year-old obese female, diaphoretic and awake alert and communicating, currently on 2 L of oxygen by nasal cannula HEAD: Normocephalic and atraumatic EYES: Normal reaction of pupils, equal size. NOSE: Clear with pink turbinates. THROAT: No erythema or exudates. NECK: No masses, no JVD. CHEST: No chest wall deformity. LUNGS: Equal air entry with no crackles, wheeze, rhonchi or dullness. On 2 L/min nasal cannula. SpO2 reading 96% on bedside monitor. No conversational dyspnea or accessory muscle use.. CVS: S1 and S2 normal with no audible murmur, regular rhythm. No extra heart s ounds ABDOMEN: No hepatosplenomegaly, active bowel sounds, no guarding or rigidity. SPINE: No scoliosis or deformity SKIN: No rashes CENTRAL NERVOUS SYSTEM: No focal deficits, tone is normal in all 4 extremities. EXTREMITIES: There is no peripheral edema, clubbing, or cyanosis. Peripheral pulses are intact. - Labs CBC & Chem 7: 02/16/25 06:32 02/16/25 06:32 Labs: Abnormal Lab Results - Last 24 Hours (Table) 02/15/25 02/15/25 02/15/25 Range/Units 09:18 11:45 11:45 Sodium 133 L (137-145) mmol/L Potassium 2.6 L* (3.5-5.1) mmol/L Chloride (98-107) mmol/L BUN 21 H (7-17) mg/dL Creatinine 1.27 H (0.52-1.04) mg/dL Glucose 139 H (74-99) mg/dL Calcium 7.8 L (8.4-10.2) mg/dL Ionized Calcium Aaliyah 4.4 L (4.5-5.3) mg/dL Magnesium 1.1 L (1.6-2.3) mg/dL 02/15/25 02/16/25 Range/Units 23:06 06:32 Sodium 133 L (137-145) mmol/L Potassium 2.4 L* 2.5 L* (3.5-5.1) mmol/L Chloride 97 L (98-107) mmol/L BUN (7-17) mg/dL Creatinine 1.09 H (0.52-1.04) mg/dL Glucose 127 H (74-99) mg/dL Calcium 8.1 L (8.4-10.2) mg/dL Ionized Calcium Aaliyah (4.5-5.3) mg/dL Magnesium (1.6-2.3) mg/dL Microbiology - Last 24 Hours (Table) 02/12/25 17:58 Blood Culture - Preliminary Blood Assessment and Plan Assessment: Acute blast crisis with elevated white cell count of 113 and high percentage of blasts. The white count is on the rise Low-grade fever, rule out underlying sepsis. Rule out tumor induced fever. Sepsis, likely bacterial with elevated procalcitonin level. Currently on broad- spectrum antibiotics. Not requiring any pressors. The patient remains on broad-spectrum antibiotics. AML, with reportedly with previous disease remission and reoccurrence, recently admitted at the [facility] on January for treatment reinduction. Also, had Blast cell crisis in leukapheresis. Eventually discharged last to continue on p.o. Venclexta. She was to be established with local medical oncology for IV infusions. The patient has acute leukocytosis with considerable elevation of the blast levels. 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 Patient is also on acyclovir. Blood cultures pending Tylenol as needed for fevers I discussed the case with hematology oncology. The patient is going to be restarted on Venclexta and xospata She will need immediate transfer to a tertiary care center. She may benefit from leukapheresis. She may also be considered for another induction chemotherapy. Prognosis remains poor. Monitor blood cell counts, Eliquis is on hold. Renal function is improving. Oxygenation stable. Will continue to follow and the patient will be kept in ICU for now. Condition is obviously critical. Evaluation was done in 40 minutes. Case was discussed with hematology oncology. Time with Patient: Greater than 30
--- NOTE | 2025-02-16 13:47 | P.PN ---
Subjective Progress Note Date: 02/16/25 Principal diagnosis: AML, febrile In f/u today pt is swollen from all the fluids she is receiving, no N,V today, she is very tired and sleepy but is appropriate when aroused. WBC today is 113, hemoglobin 8.4, platelets 74,000. Patient is requiring potassium supplemen tation. Phosphorus is extremely low. Objective - Vital Signs Vital signs: Vital Signs Temp 100.3 F H 02/16/25 08:00 Pulse 131 H 02/16/25 13:00 Resp 27 H 02/16/25 13:00 BP 95/70 02/16/25 13:00 Pulse Ox 92 L 02/16/25 13:00 FiO2 Intake & Output 02/15/25 02/16/25 02/16/25 18:59 06:59 18:59 Intake Total 2400 1400 1200 Output Total 125 150 0 Balance 2275 1250 1200 Intake: IV 2400 1400 1200 Cefepime 2 gm In Sodium 100 100 Chloride 0.9% 100 ml @ 25 mls/hr IVPB Q12H [facility] Rx# :[id number] Dextrose 5% in Water 1, 1100 1200 300 000 ml @ 100 mls/hr IV . [id number] [facility] with Sodium Bicarb (1 Meq/ml) 150 ml Rx#:[id number] Lactated Ringers 1,000 ml 600 @ 150 mls/hr IV .[id number] [facility] Rx#:[id number] Magnesium Sulfate-D5w Pmx 200 1 gm In Dextrose/Water 1 100ml.bag @ 100 mls/hr IVPB Q1H [facility] Rx#: [id number] Potassium Chloride 10 meq 500 200 200 In Water For Injection 1 100ml.bag @ 100 mls/hr IVPB Q1HR [facility] Rx#: [id number] Vancomycin 1,500 mg In 500 Sodium Chloride 0.9% 500 ml 500 ml @ 167 mls/hr IVPB Q24H [facility] Rx#: [id number] Output: Urine 125 150 0 Other: Voiding Method Diaper Diaper Diaper External Catheter External Catheter External Catheter # Voids 1 - Constitutional General appearance: Present: average body habitus, cooperative, no acute distress - EENT Eyes: Present: anicteric sclerae, EOMI ENT: Present: hearing grossly normal - Respiratory Respiratory: bilateral: CTA - Cardiovascular Details: Tachycardia - Peripheral edema leg Peripheral Edema: bilateral: 2+ - Gastrointestinal General gastrointestinal: Present: soft - Integumentary Integumentary: Present: pale - Neurologic Neurologic: Present: CNII-XII intact - Psychiatric Psychiatric Comment(s): drowsy - Labs CBC & Chem 7: 02/16/25 06:32 02/16/25 06:32 Labs: Abnormal Lab Results - Last 24 Hours (Table) 02/15/25 02/16/25 02/16/25 Range/Units 23:06 06:32 06:32 WBC 113.13 H* (4.50-10.00) 10*3/uL RBC 2.90 L (4.10-5.20) 10*6/uL Hgb 8.4 L (12.0-15.0) g/dL Hct 24.0 L (37.2-46.3) % Plt Count 80 L D (140-440) 10*3/uL Blast Cells % 74 H* % Immature Gran # 4.48 H (0.00-0.04) 10*3/uL Neutrophils # (Manual) 1.13 L (1.3-7.7) k/uL Lymphocytes # (Manual) 26.02 H (1.0-4.8) k/uL Monocytes # (Manual) 2.26 H (0-1.0) k/uL Metamyelocytes # (Man) 1.13 H (0) k/uL Blast Cells # (Man) 83.72 H (0) k/uL Nucleated RBCs 8 H (0-0) /100 WBC Sodium 133 L (137-145) mmol/L Potassium 2.4 L* 2.5 L* (3.5-5.1) mmol/L Chloride 97 L (98-107) mmol/L Creatinine 1.09 H (0.52-1.04) mg/dL Glucose 127 H (74-99) mg/dL Uric Acid (3.7-7.4) mg/dL Calcium 8.1 L (8.4-10.2) mg/dL Phosphorus (2.5-4.5) mg/dL 02/16/25 Range/Units 06:32 WBC (4.50-10.00) 10*3/uL RBC (4.10-5.20) 10*6/uL Hgb (12.0-15.0) g/dL Hct (37.2-46.3) % Plt Count (140-440) 10*3/uL Blast Cells % % Immature Gran # (0.00-0.04) 10*3/uL Neutrophils # (Manual) (1.3-7.7) k/uL Lymphocytes # (Manual) (1.0-4.8) k/uL Monocytes # (Manual) (0-1.0) k/uL Metamyelocytes # (Man) (0) k/uL Blast Cells # (Man) (0) k/uL Nucleated RBCs (0-0) /100 WBC Sodium (137-145) mmol/L Potassium (3.5-5.1) mmol/L Chloride (98-107) mmol/L Creatinine (0.52-1.04) mg/dL Glucose (74-99) mg/dL Uric Acid 3.5 L (3.7-7.4) mg/dL Calcium (8.4-10.2) mg/dL Phosphorus <0.5 L* (2.5-4.5) mg/dL Microbiology - Last 24 Hours (Table) 02/12/25 17:58 Blood Culture - Preliminary Blood Assessment and Plan (1) Neutropenic fever Current Visit: Yes Status: Acute Priority: High Code(s): D70.9 - NEUTROPENIA, UNSPECIFIED; R50.81 - FEVER PRESENTING WITH CONDITIONS CLASSIFIED ELSEWHERE SNOMED Code(s): 483871752 (2) AML (acute myelogenous leukemia) Current Visit: Yes Status: Acute Priority: High Code(s): C92.00 - ACUTE MYELOBLASTIC LEUKEMIA, NOT HAVING ACHIEVED REMISSION SNOMED Code(s): 79489781 Plan: Fever. Neutropenia resolved -Fevers persist - Pancultures so far neg - Cefepime and vancomycin cont. Pt is also on oral levaquin and acyclovir -ID consulted -May be 2/2 malignancy Acute myeloid leukemia - Diagnosis and treatment as stated in consult - WBC/blasts have tripled in the last 24 hours. Venclexta was resumed yesterday. Hydrea started today. -Uric acid checked, will check daily. Allopurinol started in anticipation of tumor lysis syndrome - Case has been discussed with Critical Care, messages left for case management regarding insurance auth needed to transfer to [facility], transfer team in [place], Dr. Paco Meneses in [place] accepting [facility] in [place]. Transfer in progress. Intended transfer is for induction chemotherapy, possible leukophoresis. She can also be assessed by BMT. - All of this was discussed with the patient and her . They are agreeable to transfer. Bicytopenia-leukocytosis -2/2 treatment medications and disease -Transfuse with irradiated blood products only. -Transfuse for hemoglobin less than 7 or if symptomatic. -Transfuse for platelets less than 10,000 or if symptomatic. Continue to hold Eliquis for now. Patient does have an IVC filter, per , was placed in May. -CBC daily. -Leukocytosis-2/2 disease, venclexta restarted yesterday. Hydrea added today. Due to pt MAR (which said is not common for her) and Hx of brain bleed, CT head without contrast ordered. No report of any suspicious findings.
[2025-02-16] MEDS: allopurinoL 300 MG TAB PO SCH (14:59)
--- NOTE | 2025-02-16 16:54 | P.PN ---
Subjective Progress Note Date: 02/15/25 Principal diagnosis: Reason for follow-up is possible sepsis Patient is a 59-year-old female with a past medical history significant for Cancer, Deep Vein Thrombosis (DVT), Hyperlipidemia, Osteoarthritis (OA), Pulmonary Embolus (PE), Skin Disorder, Thyroid Disorder, ac tatitlek myeloid leukemia for the patient has been on chemotherapy patient has been brought into the hospital for evaluation of generalized weakness palpitation and intermittent fever, ID consulted for neutropenic fever. On today's evaluation that is 02/16/2024, patient did have a temperature of 101.8 F at 4 AM subsequently temperature of 98.9 F and denies having any chills, patient is on 2 L current oxygen and breathing comfortably no chest pain or cough, the patient seem to have problem with nausea and vomiting as reported by the at the bedside. Patient white count is up to 39.33 creatinine is 1.27 Vanco trough is 14.7 blood cultures are currently pending Objective - Vital Signs Vital signs: Vital Signs Temp 98.9 F 02/15/25 12:00 Pulse 107 H 02/15/25 12:00 Resp 13 02/15/25 12:00 BP 87/63 02/15/25 12:00 Pulse Ox 92 L 02/15/25 12:00 FiO2 Intake & Output 02/14/25 02/15/25 02/15/25 18:59 06:59 18:59 Intake Total 9744.970 2104.185 200 Output Total 500 650 50 Balance 1287.391 975.185 150 Weight 96.5 kg Intake: IV 1390 1300 200 Cefepime 2 gm In Sodium 100 Chloride 0.9% 100 ml @ 25 mls/hr IVPB Q12H [facility] Rx# :[id number] Dextrose 5% in Water 1, 400 1300 200 000 ml @ 100 mls/hr IV . [id number] [facility] with Sodium Bicarb (1 Meq/ml) 150 ml Rx#:[id number] Sodium Chloride 0.9% 1, 390 000 ml @ 130 mls/hr IV . Q7H42M [facility] Rx#:[id number] Vancomycin 1,500 mg In 500 Sodium Chloride 0.9% 500 ml 500 ml @ 167 mls/hr IVPB Q24H [facility] Rx#: [id number] Intake, IV Titration 87.391 15.185 Amount Norepinephrine 4 mg In 87.391 15.185 Sodium Chloride 0.9% 250 ml @ 0.03 MCG/KG/MIN 10. 162 mls/hr IV .Q24H [facility] Rx#:[id number] Blood Product 310 310 Rc As-1 Unit 310 [id number] Rc Irr As1 Unit 0 310 [id number] Output: Urine 500 650 50 Other: Voiding Method Diaper Diaper External Catheter External Catheter # Voids 0 # Bowel Movements 1 - Exam GENERAL DESCRIPTION: Middle-age female lying in bed in no distress RESPIRATORY SYSTEM: Unlabored breathing , decreased breath sounds at bases HEART: S1 S2 regular rate and rhythm , ABDOMEN: Soft , no tenderness EXTREMITIES: Swelling to the leg no redness - Labs CBC & Chem 7: 02/16/25 06:32 02/16/25 06:32 Labs: Abnormal Lab Results - Last 24 Hours (Table) 02/14/25 02/14/25 02/14/25 Range/Units 06:17 07:23 15:43 WBC 24.31 H (4.50-10.00) 10*3/uL RBC 2.31 L (4.10-5.20) 10*6/uL Hgb 6.9 L* (12.0-15.0) g/dL Hct 20.3 L (37.2-46.3) % Plt Count 48 L (140-440) 10*3/uL MPV (9.5-12.2) fL Blast Cells % % Immature Gran # 1.37 H (0.00-0.04) 10*3/uL Neutrophils # 1.40 L (1.80-7.70) 10*3/uL Lymphocytes # 5.87 H (0.90-5.00) 10*3/uL Monocytes # 15.56 H (0.20-1.00) 10*3/uL Monocytes # (Manual) (0-1.0) k/uL Metamyelocytes # (Man) (0) k/uL Blast Cells # (Man) (0) k/uL Nucleated RBCs (0-0) /100 WBC Immature Plt Fraction 16.4 H (1.1-6.1) % Sodium (137-145) mmol/L Potassium (3.5-5.1) mmol/L BUN (7-17) mg/dL Creatinine (0.52-1.04) mg/dL Glucose (74-99) mg/dL Calcium (8.4-10.2) mg/dL Ionized Calcium Aaliyah (4.5-5.3) mg/dL Magnesium (1.6-2.3) mg/dL Procalcitonin 3.89 H (0.02-0.50) ng/mL Crossmatch See Detail 02/15/25 02/15/25 02/15/25 Range/Units 03:45 03:45 09:18 WBC 39.33 H (4.50-10.00) 10*3/uL RBC 2.69 L (4.10-5.20) 10*6/uL Hgb 8.0 L (12.0-15.0) g/dL Hct 23.2 L (37.2-46.3) % Plt Count 50 L (140-440) 10*3/uL MPV 12.4 H (9.5-12.2) fL Blast Cells % 78 H* % Immature Gran # 1.03 H (0.00-0.04) 10*3/uL Neutrophils # (1.80-7.70) 10*3/uL Lymphocytes # (0.90-5.00) 10*3/uL Monocytes # (0.20-1.00) 10*3/uL Monocytes # (Manual) 2.75 H (0-1.0) k/uL Metamyelocytes # (Man) 0.39 H (0) k/uL Blast Cells # (Man) 30.68 H (0) k/uL Nucleated RBCs 10 H (0-0) /100 WBC Immature Plt Fraction (1.1-6.1) % Sodium 133 L (137-145) mmol/L Potassium 2.6 L* (3.5-5.1) mmol/L BUN 21 H (7-17) mg/dL Creatinine 1.20 H 1.27 H (0.52-1.04) mg/dL Glucose 139 H (74-99) mg/dL Calcium 7.8 L (8.4-10.2) mg/dL Ionized Calcium Aaliyah (4.5-5.3) mg/dL Magnesium (1.6-2.3) mg/dL Procalcitonin (0.02-0.50) ng/mL Crossmatch 02/15/25 02/15/25 Range/Units 11:45 11:45 WBC (4.50-10.00) 10*3/uL RBC (4.10-5.20) 10*6/uL Hgb (12.0-15.0) g/dL Hct (37.2-46.3) % Plt Count (140-440) 10*3/uL MPV (9.5-12.2) fL Blast Cells % % Immature Gran # (0.00-0.04) 10*3/uL Neutrophils # (1.80-7.70) 10*3/uL Lymphocytes # (0.90-5.00) 10*3/uL Monocytes # (0.20-1.00) 10*3/uL Monocytes # (Manual) (0-1.0) k/uL Metamyelocytes # (Man) (0) k/uL Blast Cells # (Man) (0) k/uL Nucleated RBCs (0-0) /100 WBC Immature Plt Fraction (1.1-6.1) % Sodium (137-145) mmol/L Potassium (3.5-5.1) mmol/L BUN (7-17) mg/dL Creatinine (0.52-1.04) mg/dL Glucose (74-99) mg/dL Calcium (8.4-10.2) mg/dL Ionized Calcium Aaliyah 4.4 L (4.5-5.3) mg/dL Magnesium 1.1 L (1.6-2.3) mg/dL Procalcitonin (0.02-0.50) ng/mL Crossmatch Microbiology - Last 24 Hours (Table) 02/12/25 17:58 Blood Culture - Preliminary Blood Assessment and Plan (1) Sepsis Current Visit: Yes Status: Acute Code(s): A41.9 - SEPSIS, UNSPECIFIED ORGANISM SNOMED Code(s): 15372496 Plan: 1patient presented hospital with weakness in this patient found to have acute myeloid leukemia for the patient has been on chemotherapy did have a fever tachycardia hyortension meeting ready for SIRS/sepsis, no initial workup has been negative chest x-ray was negative for acute infiltrate UA has been negative abdomen is soft on clinical examination no evidence of any cellulitis or joint swelling 2-patient fever pattern has improved significant worsening of the white count with a question of blast crisis, the patient is broadly covered with vancomycin and cefepime to continue while waiting for the culture to finalize at the bedside multiple question concern answered Dictation was produced using [employer] dictation software. please excuse any grammatical, word or spelling errors. Time with Patient: Less than 30
--- NOTE | 2025-02-16 16:56 | P.PN ---
Subjective Progress Note Date: 02/16/25 Principal diagnosis: Reason for follow-up is possible sepsis/fever Patient is a 59-year-old female with a past medical history significant for Cancer, Deep Vein Thrombosis (DVT), Hyperlipidemia, Osteoarthritis (OA), Pulmonary Embolus (PE), Skin Disorder, Thyroid Disorder, acute myeloid leukemia for the patient has been on chemotherapy patient has been brought into the hospital for evaluation of generalized weakness palpitation and intermittent fever, ID consulted for neutropenic fever. On today's evaluation that is 02/16/2025, Patient did spike a fever of 102.7 F last night however is afebrile this morning, patient is currently on 2 L current oxygen complaining of shortness of breath no chest pain occasional cough still having nausea decreased oral intake but no further vomiting no abdominal pain or diarrhea. Patient white count is up to 113.13, blast is 74%, platelet count is 80 creatinine 1.09 blood cultures have been negative so far Objective - Vital Signs Vital signs: Vital Signs Temp 100.3 F H 02/16/25 08:00 Pulse 131 H 02/16/25 13:00 Resp 27 H 02/16/25 13:00 BP 95/70 02/16/25 13:00 Pulse Ox 92 L 02/16/25 13:00 FiO2 Intake & Output 02/15/25 02/16/25 02/16/25 18:59 06:59 18:59 Intake Total 2400 1400 1200 Output Total 125 150 0 Balance 2275 1250 1200 Intake: IV 2400 1400 1200 Cefepime 2 gm In Sodium 100 100 Chloride 0.9% 100 ml @ 25 mls/hr IVPB Q12H [facility] Rx# :[id number] Dextrose 5% in Water 1, 1100 1200 300 000 ml @ 100 mls/hr IV . [id number] [facility] with Sodium Bicarb (1 Meq/ml) 150 ml Rx#:[id number] Lactated Ringers 1,000 ml 600 @ 150 mls/hr IV .[id number] [facility] Rx#:[id number] Magnesium Sulfate-D5w Pmx 200 1 gm In Dextrose/Water 1 100ml.bag @ 100 mls/hr IVPB Q1H [facility] Rx#: [id number] Potassium Chloride 10 meq 500 200 200 In Water For Injection 1 100ml.bag @ 100 mls/hr IVPB Q1HR [facility] Rx#: [id number] Vancomycin 1,500 mg In 500 Sodium Chloride 0.9% 500 ml 500 ml @ 167 mls/hr IVPB Q24H [facility] Rx#: [id number] Output: Urine 125 150 0 Other: Voiding Method Diaper Diaper Diaper External Catheter External Catheter External Catheter # Voids 1 - Exam GENERAL DESCRIPTION: Middle-age female lying in bed in no distress RESPIRATORY SYSTEM: Unlabored breathing , decreased breath sounds at bases HEART: S1 S2 regular rate and rhythm , ABDOMEN: Soft , no tenderness EXTREMITIES: Swelling to the leg no redness - Labs CBC & Chem 7: 02/16/25 06:32 02/16/25 06:32 Labs: Abnormal Lab Results - Last 24 Hours (Table) 02/15/25 02/16/25 02/16/25 Range/Units 23:06 06:32 06:32 WBC 113.13 H* (4.50-10.00) 10*3/uL RBC 2.90 L (4.10-5.20) 10*6/uL Hgb 8.4 L (12.0-15.0) g/dL Hct 24.0 L (37.2-46.3) % Plt Count 80 L D (140-440) 10*3/uL Blast Cells % 74 H* % Immature Gran # 4.48 H (0.00-0.04) 10*3/uL Neutrophils # (Manual) 1.13 L (1.3-7.7) k/uL Lymphocytes # (Manual) 26.02 H (1.0-4.8) k/uL Monocytes # (Manual) 2.26 H (0-1.0) k/uL Metamyelocytes # (Man) 1.13 H (0) k/uL Blast Cells # (Man) 83.72 H (0) k/uL Nucleated RBCs 8 H (0-0) /100 WBC Sodium 133 L (137-145) mmol/L Potassium 2.4 L* 2.5 L* (3.5-5.1) mmol/L Chloride 97 L (98-107) mmol/L Creatinine 1.09 H (0.52-1.04) mg/dL Glucose 127 H (74-99) mg/dL Uric Acid (3.7-7.4) mg/dL Calcium 8.1 L (8.4-10.2) mg/dL Phosphorus (2.5-4.5) mg/dL 02/16/25 Range/Units 06:32 WBC (4.50-10.00) 10*3/uL RBC (4.10-5.20) 10*6/uL Hgb (12.0-15.0) g/dL Hct (37.2-46.3) % Plt Count (140-440) 10*3/uL Blast Cells % % Immature Gran # (0.00-0.04) 10*3/uL Neutrophils # (Manual) (1.3-7.7) k/uL Lymphocytes # (Manual) (1.0-4.8) k/uL Monocytes # (Manual) (0-1.0) k/uL Metamyelocytes # (Man) (0) k/uL Blast Cells # (Man) (0) k/uL Nucleated RBCs (0-0) /100 WBC Sodium (137-145) mmol/L Potassium (3.5-5.1) mmol/L Chloride (98-107) mmol/L Creatinine (0.52-1.04) mg/dL Glucose (74-99) mg/dL Uric Acid 3.5 L (3.7-7.4) mg/dL Calcium (8.4-10.2) mg/dL Phosphorus <0.5 L* (2.5-4.5) mg/dL Microbiology - Last 24 Hours (Table) 02/12/25 17:58 Blood Culture - Preliminary Blood Assessment and Plan (1) Sepsis Current Visit: Yes Status: Acute Code(s): A41.9 - SEPSIS, UNSPECIFIED ORGANISM SNOMED Code(s): 41589878 Plan: 1patient presented hospital with weakness in this patient found to have acute myeloid leukemia for the patient has been on chemotherapy did have a fever tachycardia hyortension meeting ready for SIRS/sepsis, no initial workup has been negative chest x-ray was negative for acute infiltrate UA has been negative abdomen is soft on clinical examination no evidence of any cellulitis or joint swelling 2-patient seem to have some improvement in the fever pattern however significant worsening of the white count with a elevated blast percentage concerning for blast crisis and the patient is being considered for transfer to tertiary care, patient is broadly covered with antibiotics in the form of cefepime Vanco, she did have significant nausea and unable to tolerate oral as reported by the nursing staff has been unable to do any CT abdominal pelvis at this point at the bedside multiple question concern answered Dictation was produced using [employer] dictation software. please excuse any grammatical, word or spelling errors. Time with Patient: Less than 30
[2025-02-16 18:59] LABS: African American GFR (CKD) 66 (>60 ml/min/1.73 sqM); Anion Gap 10 mmol/L; Blood Urea Nitrogen 14 mg/dL (7-17); Calcium 7.4 mg/dL (8.4-10.2); Carbon Dioxide 24 mmol/L (22-30); Chloride 99 mmol/L (98-107); Glucose 126 mg/dL (74-99); Non-African American GFR(CKD) 57 (>60 ml/min/1.73 sqM); Sodium 133 mmol/L (137-145); Uric Acid 3.3 mg/dL (3.7-7.4)
[2025-02-16 19:06] LABS: Potassium 2.2 mmol/L (3.5-5.1)
[2025-02-16] MEDS ORDERED: POTASSIUM CHLORIDE 40 MEQ in WATER FOR INJECTION 1 100ML.BAG IVPB STA (20:15)
[2025-02-16] MEDS: POTASSIUM PHOSPHATE 10 MMOL in SODIUM CHLORIDE 0.9% 250 ML IV SCH (20:39)
[2025-02-16] MEDS: POTASSIUM CITRATE 10 MEQ TABLET.ER PO ONE (20:44)
[2025-02-16] MEDS: MAGNESIUM SULFATE-D5W PMX 1 GM in DEXTROSE/WATER 1 100ML.BAG IVPB SCH (20:45)
--- NOTE | 2025-02-16 21:01 | P.PN ---
Progress Note - Text Progress Note Date: 02/16/25 ICU requested IV access. After cleaning left forearm with provided alcohol wipe, 20G iv 1 3/4 inch was placed w/o difficulty. Patient tolerated well.
--- NOTE | 2025-02-16 21:54 | P.PN ---
Subjective Progress Note Date: 02/16/25 Patient is a 59-year-old male with relasped AML on chemotherapy, asthma, Crohn's disease, history of DVT and PE with IVC filter and anticoagulation on Eliquis here for evaluation of fever. Patient reported that the fever started yesterday with associated nausea and palpitations. She had history of neutropenic fever about 3 weeks ago and treated in [facility]. She also reported chest pain during time of evaluation. She denied shortness of breath, cough, changes in urination or defecation, extremity swelling, abdominal pain, recent trauma or fall. On admission: Vitals: Temp 100.4, NE 129, RR 20, BP 122/75, O2 saturation 96% on room air Labs: WBC 2.07, hemoglobin 7.9, platelet count 31,000, sodium 134, potassium 4.8, chloride 97, BUN 18, creatinine 1.3, glucose 136, lactic acid 2, calcium 9.2, alk phos 143, AST 19, ALT 12, albumin 4.6. Troponin negative. Urinalysis showed trace protein, trace blood, negative nitrites, negative leukocyte esterase. Imaging: Chest x-ray showed no acute pulmonary process. Initial EKG showed sinus tachycardia with a rate of 132, no ST-T changes, QTc 372 MS. Second EKG showed sinus tachycardia with a rate of 132, normal axis, no ST-T changes, QTc 389 MS. 02/14/2025 patient seen and examined at bedside. Patient was sent to the ICU yesterday evening for hypotension despite 4 L of IV fluid boluses. Labs: Labs today showed WBC 16.8, hemoglobin 6.3, MCV 90.8, platelet count 46,000, sodium 136, potassium 4, chloride 106, bicarb 16, BUN 22, creatinine 1.7, glucose 86, calcium 8.1 02/15/2025 patient seen and examined at bedside. Patient still in the ICU. Required 1 more unit of PRBC overnight. Complains of nausea and vomiting Labs: WBC 39.3, hemoglobin 8, platelet count 50,000, sodium 133, potassium 2.6, chloride 101, bicarb 23, BUN 21 creatinine 1.2, glucose 139, calcium 7.8 02/17/2024 Patient is in the MICU. Lethargic and weak. Awake alert and oriented. Requiring 2 L oxygen via nasal cannula. Complains of headache and diffuse bod yaches. Tachycardic and Tmax 102.1. Patient is on antibiotics in form of vancomycin and cefepime. Cultures have been negative so far. Otherwise her WBC went up to 113.1, hemoglobin 8.4 and platelets 80. Blast cells 74%. Sodium 133 potassium 2.5 chloride 97 bicarb is 26 BUN 16 creatinine 1.09 and blood sugar 127 and uric acid 3.5 calcium 8.1 and phosphorus less than 0.5 and magnesium 1.8. Patient is on bicarb drip at 100 cc/h and also on prophylactic Lokelma and acyclovir. Review of systems: Pertinent positives and negatives as discussed in HPI, a complete review of systems was performed and all other systems are negative. Physical examination: Vital signs reviewed General: non toxic, no distress, older than stated age, on 2L nasal cannula Derm: no unusual rashes/lesions, warm Head: atraumatic, normocephalic, symmetric Eyes: EOMI, anicteric sclera, pupils equal round reactive to light ENT: Nose and ears atraumatic Neck: No cervical lymphadenopathy, trachea midline, supple Mouth: no lip lesion, mucus membranes moist Cardiovascular: S1S2 reg, no murmur Lungs: CTA bilateral, no rhonchi, no rales, no accessory muscle use Abdominal: soft, nondistended, nontender to palpation, no guarding Ext: muscle strength 5 out of 5 in all 4 extremities grossly, no gross muscle atrophy, no contractures, positive dorsalis pedis pulse bilateral, bilateral lower extremity +1 pitting edema Neuro: CN II-XI grossly intact, no gross focal neuro deficits Psych: Alert and oriented x 3, appropriate affect and mood Assessment/Plan: The patient is admitted with an anticipated greater than 2 midnight stay for evaluation of neutropenic fever Active: # Acute blast crisis with WBC went up to 113 with 74% blast cells. #. Severe Neutropenic fever #. Acute myeloid leukemia currently taking chemotherapy. With previous disease and recurrence. Recently admitted to [facility]. She had induction treatment on January 09, 2025. #. Pancytopenia secondary to above, status post 2 units PRBC transfusion #. Anion gap metabolic acidosis MASCC 19, not low risk Hemoglobin 8 today. Required 2 unit pRBC WBC increased to 39.33, blast cells 78% Continue on empiric cefepime and vancomycin IV Continue with IV hydration with normal saline at 150 show well. Hold home acyclovir and levofloxacin prophylaxis Currently on bicarb drip and Levophed drip in the ICU. Weaning off pressors. Continue with IV and p.o. pain control and nausea management Blood cultures negative so far. Critical care team, oncology and ID is on board. Due to acute blast crisis, she may benefit from leukapheresis. Initiated transfer to [facility]. Patient was accepted by the oncology but currently awaiting insurance authorization. Discussed with transfer team several times today. #. Severe hypokalemia #. Hypophosphatemia Potassium 2.5 today Initiated potassium replacement protocol. Continue with regular supplementation. Check magnesium. If low, will replete #. Hypocalcemia Calcium 7.8 today Checked ionized calcium #. Chest pain, ACS ruled out Cardiac monitoring Supplemental oxygen as needed Troponin negative EKG showed sinus tachycardia with a rate of 132, no ST-T changes, QTc 372 MS. EKG as needed Cardiology consulted. ACS has been ruled out. Have signed off #. Acute on CKD stage III, baseline Creatinine today 1.2 Avoid nephrotoxic agents Monitor urine output and renal function Chronic Conditions: #. Asthma #. Crohn's disease #. History of DVT and PE -Eliquis held due to thrombocytopenia -Continue with home calcitriol, Protonix 40 mg p.o. twice daily DVT ppx: SCDs CODE STATUS: Full Discussed with: Patient patient's partner Anticipated discharge place: Pending clinical course Dictation was produced using [employer] (formerly [employer]) dictation software. please excuse any grammatical, word or spelling errors. Objective - Vital Signs Vital signs: Vital Signs Temp 98.2 F 02/16/25 19:00 Pulse 125 H 02/16/25 19:00 Resp 24 02/16/25 19:00 BP 103/69 02/16/25 19:00 Pulse Ox 92 L 02/16/25 19:00 FiO2 Intake & Output 02/16/25 02/16/25 02/17/25 06:59 18:59 06:59 Intake Total 1400 2300 650 Output Total 150 0 350 Balance 1250 2300 300 Intake: IV 1400 2300 650 ACETAMINOPHEN IV (For NPO 100 ) 1,000 mg In Empty Bag 1 bag @ 400 mls/hr IVPB Q6HR [facility] Rx#:[id number] Cefepime 2 gm In Sodium 100 Chloride 0.9% 100 ml @ 25 mls/hr IVPB Q12H [facility] Rx# :[id number] Dextrose 5% in Water 1, 1200 300 000 ml @ 100 mls/hr IV . [id number] [facility] with Sodium Bicarb (1 Meq/ml) 150 ml Rx#:[id number] Lactated Ringers 1,000 ml 1350 150 @ 150 mls/hr IV .Q6H40M [facility] Rx#:[id number] Potassium Chloride 10 meq 200 200 In Water For Injection 1 100ml.bag @ 100 mls/hr IVPB Q1HR [facility] Rx#: [id number] Sodium Phosphate 60 mmol 250 In Dextrose 5% in Water 250 ml @ 45 mls/hr IVPB ONCE ONE Rx#:[id number] Vancomycin 1,500 mg In 500 Sodium Chloride 0.9% 500 ml 500 ml @ 167 mls/hr IVPB Q16H [facility] Rx#: [id number] Output: Urine 150 0 350 Other: Voiding Method Diaper Diaper External Catheter External Catheter # Voids 1 - Labs CBC & Chem 7: 02/16/25 06:32 02/16/25 18:14 Labs: Abnormal Lab Results - Last 24 Hours (Table) 02/15/25 02/16/25 02/16/25 Range/Units 23:06 06:32 06:32 WBC 113.13 H* (4.50-10.00) 10*3/uL RBC 2.90 L (4.10-5.20) 10*6/uL Hgb 8.4 L (12.0-15.0) g/dL Hct 24.0 L (37.2-46.3) % Plt Count 80 L D (140-440) 10*3/uL Blast Cells % 74 H* % Immature Gran # 4.48 H (0.00-0.04) 10*3/uL Neutrophils # (Manual) 1.13 L (1.3-7.7) k/uL Lymphocytes # (Manual) 26.02 H (1.0-4.8) k/uL Monocytes # (Manual) 2.26 H (0-1.0) k/uL Metamyelocytes # (Man) 1.13 H (0) k/uL Blast Cells # (Man) 83.72 H (0) k/uL Nucleated RBCs 8 H (0-0) /100 WBC Sodium 133 L (137-145) mmol/L Potassium 2.4 L* 2.5 L* (3.5-5.1) mmol/L Chloride 97 L (98-107) mmol/L Creatinine 1.09 H (0.52-1.04) mg/dL Glucose 127 H (74-99) mg/dL Uric Acid (3.7-7.4) mg/dL Calcium 8.1 L (8.4-10.2) mg/dL Phosphorus (2.5-4.5) mg/dL Magnesium (1.6-2.3) mg/dL 02/16/25 02/16/25 02/16/25 Range/Units 06:32 18:14 18:14 WBC (4.50-10.00) 10*3/uL RBC (4.10-5.20) 10*6/uL Hgb (12.0-15.0) g/dL Hct (37.2-46.3) % Plt Count (140-440) 10*3/uL Blast Cells % % Immature Gran # (0.00-0.04) 10*3/uL Neutrophils # (Manual) (1.3-7.7) k/uL Lymphocytes # (Manual) (1.0-4.8) k/uL Monocytes # (Manual) (0-1.0) k/uL Metamyelocytes # (Man) (0) k/uL Blast Cells # (Man) (0) k/uL Nucleated RBCs (0-0) /100 WBC Sodium 133 L (137-145) mmol/L Potassium 2.2 L* (3.5-5.1) mmol/L Chloride (98-107) mmol/L Creatinine 1.08 H (0.52-1.04) mg/dL Glucose 126 H (74-99) mg/dL Uric Acid 3.5 L 3.3 L (3.7-7.4) mg/dL Calcium 7.4 L (8.4-10.2) mg/dL Phosphorus <0.5 L* 2.0 L (2.5-4.5) mg/dL Magnesium 1.3 L (1.6-2.3) mg/dL Microbiology - Last 24 Hours (Table) 02/12/25 17:58 Blood Culture - Preliminary Blood
[2025-02-17 04:47] LABS: HCT 20.8 % (37.2-46.3); HGB 7.2 g/dL (12.0-15.0); Immature Platelet Fraction 10.7 % (1.1-6.1); MCH 29.1 pg (27.0-32.0); MCHC 34.6 g/dL (32.0-37.0); MCV 84.2 fL (80.0-97.0); Mean Platelet Volume 10.5 fL (9.5-12.2); RBC 2.47 10*6/uL (4.10-5.20); RDW 16.9 % (11.5-14.5)
[2025-02-17 04:55] LABS: Platelet Count 63 10*3/uL (140-440)
[2025-02-17 05:19] LABS: Band Neutrophils % 5 %; Metamyelocytes % 1 %; Nucleated Red Blood Cells 2 /100 WBC (0-0); Total Cells Counted 200
[2025-02-17 05:20] LABS: Blast Cells # (M) 163.23 k/uL (0); WBC 194.32 10*3/uL (4.50-10.00)
[2025-02-17 05:21] LABS: Lymphocytes # (M) 15.55 k/uL (1.0-4.8); Metamyelocytes # (M) 1.94 k/uL (0); Monocytes # (M) 3.89 k/uL (0-1.0)
[2025-02-17 05:22] LABS: Anisocytosis (M) Present
[2025-02-17 05:28] LABS: African American GFR (CKD) 58 (>60 ml/min/1.73 sqM); Non-African American GFR(CKD) 50 (>60 ml/min/1.73 sqM)
[2025-02-17 05:29] LABS: Potassium 3.4 mmol/L (3.5-5.1)
[2025-02-17] MEDS: ACETAMINOPHEN IV (For NPO) 1,000 MG in EMPTY BAG 1 BAG IVPB SCH (05:51)
[2025-02-17] MEDS: POTASSIUM CHLORIDE ER 20 MEQ TAB.ER PO SCH (05:53)
[2025-02-17] MEDS ORDERED: POTASSIUM CITRATE 5 MEQ TABLET.ER PO SCH (08:30)
[2025-02-17 10:54] LABS: African American GFR (CKD) 52 (>60 ml/min/1.73 sqM); Anion Gap 13 mmol/L; Blood Urea Nitrogen 16 mg/dL (7-17); Calcium 7.5 mg/dL (8.4-10.2); Carbon Dioxide 19 mmol/L (22-30); Chloride 102 mmol/L (98-107); Glucose 135 mg/dL (74-99); Non-African American GFR(CKD) 45 (>60 ml/min/1.73 sqM); Potassium 3.2 mmol/L (3.5-5.1); Sodium 134 mmol/L (137-145)
[2025-02-17] MEDS: VANCOMYCIN TROUGH DUE 1 EACH MISC MISCELLANE ONE (11:25)
[2025-02-17] MEDS: POTASSIUM PHOSPHATE 10 MMOL in SODIUM CHLORIDE 0.9% 250 ML IV ONE (11:28)
--- NOTE | 2025-02-17 11:37 | P.NPCON ---
History of Present Illness - Reason for Consult hypokalemia - History of Present Illness Patient is a 59-year-old female with history of refractory AML maintained on chemotherapy and leukapheresis with recent episode of blast crisis. She is admitted to the hospital with complaints of fever, increased weakness and palpitations. Underlying history of Crohn's disease, DVT/PE and asthma. Potassium on admission was 4.8 however on 02/15/2025 potassium was down to 2.6, magnesium at 1.3. Serum creatinine at about 1.0 mg/dL. Phosphorus was less than 0.5 Patient had a marked increase in her WBC blast cell count and there is consideration for need for leukapheresis for which she is being transferred to [facility]. No diarrhea noted No vomiting Past Medical History Past Medical History: Asthma, Cancer, Deep Vein Thrombosis (DVT), Hyperlipidemia, Osteoarthritis (OA), Pulmonary Embolus (PE), Skin Disorder, Thyroid Disorder Additional Past Medical History / Comment(s): Acute myeloid leukemia (AML) diagnosed in 2023. crohn's disease, migraine headaches, varicose veins, oral lichen planus, lichen planus rash on back, thyroid nodule. 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 History of Any Multi-Drug Resistant Organisms: None Reported Past Surgical History: Breast Surgery, Cholecystectomy, Joint Replacement, Orthopedic Surgery Additional Past Surgical History / Comment(s): lt oophorectomy and fallopian tube removed 2011, varicose vein surgery left leg,lasik. Colonoscopy 2020(next after 3yr). BILAT KNEE REPLACEMENT. BILATERAL CARPAL TUNNEL SURGERY. breast bx on lft. Right arm surgery. IVC filter placed 2023. Colonoscopy 2022(next after 2yr). Past Anesthesia/Blood Transfusion Reactions: No Reported Reaction Past Psychological History: No Psychological Hx Reported Smoking Status: Never smoker Past Alcohol Use History: None Reported Past Drug Use History: None Reported - Past Family History Father Family Medical History: No Reported History Additional Family Medical History / Comment(s): Heart disease Mother Family Medical History: Cancer, Myocardial Infarction (HI) Additional Family Medical History / Comment(s): Grandmother had diabetes. Medications and Allergies Home Medications Medication Instructions Recorded Confirmed Type Thyroid,Pork [[place] Thyroid] 90 mg PO DAILY 03/29/17 02/12/25 History Apixaban [Eliquis] 5 mg PO BID 12/11/24 02/12/25 History Magnesium Chloride [Mag64] 64 mg PO TID 12/11/24 02/12/25 History aMILoride HCL 5 mg PO DAILY 12/11/24 02/12/25 History calcitrioL 0.25 mcg PO MOWEFR 12/11/24 02/12/25 History Acetaminophen Tab [Tylenol] 650 mg PO Q6H PRN 02/12/25 02/12/25 History Acyclovir [Zovirax] 400 mg PO BID 02/12/25 02/12/25 History Albuterol Nebulized [Ventolin 2.5 mg INHALATION RT-Q6H PRN 02/12/25 02/12/25 History Nebulized] EPINEPHrine (Auto Inject) [Epipen] 0.3 mg IM ONCE PRN 02/12/25 02/12/25 History Fluconazole [Diflucan] 200 mg PO DAILY 02/12/25 02/12/25 History Levofloxacin [Levaquin] 500 mg PO DAILY 02/12/25 02/12/25 History Loratadine-Pseudoeph 10-240 mg 1 tab PO DAILY 02/12/25 02/12/25 History [Claritin-D 24 Hour] Pantoprazole Sodium [Protonix] 40 mg PO AC-BID 02/12/25 02/12/25 History Potassium Chloride ER [K-Dur 20] 40 meq PO BID 02/12/25 02/12/25 History Venetoclax [Venclexta] 200 mg PO DAILY 02/12/25 02/12/25 History Vitamin B Complex W/Vitamin C 1 tab PO DAILY 02/12/25 02/12/25 History Vitamin D3(Unknown Dose) 1 tab PO DAILY 02/12/25 02/12/25 History allopurinoL [Zyloprim] 300 mg PO DAILY 02/12/25 02/12/25 History oxyCODONE HCL [OxyIR] 5 mg PO Q4H PRN 02/12/25 02/12/25 History Allergies Allergy/AdvReac Type Severity Reaction Status Date / Time adhesive tape Allergy Rash/Hives Verified 02/12/25 18:01 aspirin Allergy Dyspnea Verified 02/12/25 18:01 bacitracin Allergy Rash/Hives Verified 02/12/25 18:01 [From Polysporin(bacitracin base)] morphine Allergy Itching Verified 02/12/25 18:01 nickel Allergy Rash/Hives Verified 02/12/25 18:01 Penicillins Allergy Rapid Verified 02/12/25 18:01 Heart Rate, anxiety attack polymyxin B Allergy Rash/Hives Verified 02/12/25 18:01 [From Polysporin(bacitracin base)] Physical Exam Vitals: Vital Signs Temp Pulse Resp BP Pulse Ox 02/17/25 11:00 122 H 30 H 94/68 95 02/17/25 10:00 123 H 25 H 92/64 95 02/17/25 09:00 126 H 25 H 92/66 95 02/17/25 08:00 99.5 F 131 H 23 100/70 94 L 02/17/25 07:00 135 H 32 H 110/83 95 02/17/25 06:00 102.8 F H 137 H 21 96/72 94 L 02/17/25 05:00 138 H 31 H 108/64 94 L 02/17/25 04:00 103.1 F H 135 H 22 108/74 94 L 02/17/25 03:00 138 H 29 H 120/60 94 L 02/17/25 02:00 134 H 19 91/67 94 L 02/17/25 01:00 130 H 20 100/65 97 02/17/25 00:06 129 H 21 100/65 96 02/17/25 00:00 102.2 F H 129 H 20 98/70 97 02/16/25 23:00 125 H 15 81/64 96 02/16/25 22:00 125 H 19 107/75 97 02/16/25 21:00 130 H 29 H 90/62 94 L 02/16/25 20:00 100.8 F H 126 H 27 H 95/71 93 L 02/16/25 19:00 98.2 F 125 H 24 103/69 92 L 02/16/25 18:00 131 H 22 94/68 93 L 02/16/25 17:00 99.8 F H 134 H 22 109/77 93 L 02/16/25 16:00 102.1 F H 135 H 29 H 105/66 92 L 02/16/25 15:00 134 H 22 102/76 91 L 02/16/25 14:00 133 H 24 98/71 92 L 02/16/25 13:00 131 H 27 H 95/70 92 L 02/16/25 12:00 99.6 F 130 H 26 H 95/70 93 L Intake and Output 02/16/25 02/17/25 02/17/25 22:59 06:59 14:59 Intake Total 1800 1200 750 Output Total 350 150 270 Balance 1450 1050 480 Intake: IV 1800 1200 750 ACETAMINOPHEN IV (For NPO 100 ) 1,000 mg In Empty Bag 1 bag @ 400 mls/hr IVPB Q6HR [facility] Rx#:[id number] Lactated Ringers 1,000 ml 1200 1200 750 @ 150 mls/hr IV .Q6H40M [facility] Rx#:[id number] Vancomycin 1,500 mg In 500 Sodium Chloride 0.9% 500 ml 500 ml @ 167 mls/hr IVPB Q16H [facility] Rx#: [id number] Output: Gastric Drainage 150 150 Urine 350 0 120 Other: Voiding Method Diaper Diaper External Catheter External Catheter # Voids 1 1 # Bowel Movements 1 Weight 106 kg Patient is awake, lethargic, no acute distress Examination of the heart S1 and S2 Examination of the lungs bilateral breath sounds are heard Abdomen is soft Examination of lower extremity shows edema 1+ bilaterally Results - Lab Results Most recent lab results Calcium 7.5 mg/dL (8.4-10.2) L 02/17/25 04:20 Phosphorus 2.1 mg/dL (2.5-4.5) L 02/17/25 04:20 Magnesium 2.0 mg/dL (1.6-2.3) 02/17/25 04:20 02/17/25 04:20 02/17/25 09:41 Assessment and Plan Assessment: 1. Hypokalemia and hypomagnesemia and hypophosphatemia, status post replacement. Urine potassium is elevated suggesting urine potassium wasting. 2. Acute blast cell crisis 3. Acute myeloid leukemia 4. Neutropenic fever Plan: Continue to replace potassium, phosphorus and magnesium Patient is being transferred to [facility] for induction therapy as well as possible leukapheresis.
[2025-02-17 12:48] VITALS: BP 87/61; PULSE 123; RESP 28; TEMP 98.2
--- NOTE | 2025-02-17 13:23 | P.PN ---
Subjective Progress Note Date: 02/17/25 Principal diagnosis: AML, febrile In f/u today pt is progressively declining, her WBS and blast counts are worse, she is more lethargic. Transfer has come through and she is going to [facility] in [place]. Objective - Vital Signs Vital signs: Vital Signs Temp 98.2 F 02/17/25 12:00 Pulse 123 H 02/17/25 12:00 Resp 28 H 02/17/25 12:00 BP 87/61 02/17/25 12:00 Pulse Ox 96 02/17/25 12:00 FiO2 Intake & Output 02/16/25 02/17/25 02/17/25 18:59 06:59 18:59 Intake Total 2300 2300 1750 Output Total 0 500 270 Balance 2300 1800 1480 Weight 106 kg Intake: IV 2300 2300 1750 ACETAMINOPHEN IV (For NPO 100 100 ) 1,000 mg In Empty Bag 1 bag @ 400 mls/hr IVPB Q6HR PRN Rx#:[id number] Cefepime 2 gm In Sodium 100 Chloride 0.9% 100 ml @ 25 mls/hr IVPB Q12H [facility] Rx# :[id number] Dextrose 5% in Water 1, 300 000 ml @ 100 mls/hr IV . [id number] [facility] with Sodium Bicarb (1 Meq/ml) 150 ml Rx#:[id number] Lactated Ringers 1,000 ml 1350 1800 900 @ 150 mls/hr IV .Q6H40M [facility] Rx#:[id number] Potassium Chloride 10 meq 200 In Water For Injection 1 100ml.bag @ 100 mls/hr IVPB Q1HR [facility] Rx#: [id number] Sodium Phosphate 60 mmol 250 250 In Dextrose 5% in Water 250 ml @ 45 mls/hr IVPB ONCE ONE Rx#:[id number] Vancomycin 1,500 mg In 500 500 Sodium Chloride 0.9% 500 ml 500 ml @ 167 mls/hr IVPB Q16H [facility] Rx#: [id number] Output: Gastric Drainage 150 150 Urine 0 350 120 Other: Voiding Method Diaper Diaper External Catheter External Catheter # Voids 1 1 # Bowel Movements 1 - Constitutional General appearance: Present: average body habitus, no acute distress - EENT ENT: Present: hearing grossly normal - Respiratory Details: resp mildly labored at rest - Cardiovascular Details: tachycardia - Peripheral edema leg Peripheral Edema: bilateral: 2+ - Integumentary Integumentary: Present: pale - Musculoskeletal Musculoskeletal: Present: generalized weakness - Labs CBC & Chem 7: 02/17/25 04:20 02/17/25 09:41 Labs: Abnormal Lab Results - Last 24 Hours (Table) 02/16/25 02/16/25 02/17/25 Range/Units 18:14 18:14 04:20 WBC (4.50-10.00) 10*3/uL RBC (4.10-5.20) 10*6/uL Hgb (12.0-15.0) g/dL Hct (37.2-46.3) % Plt Count (140-440) 10*3/uL Blast Cells % % Lymphocytes # (Manual) (1.0-4.8) k/uL Monocytes # (Manual) (0-1.0) k/uL Metamyelocytes # (Man) (0) k/uL Blast Cells # (Man) (0) k/uL Nucleated RBCs (0-0) /100 WBC Immature Plt Fraction (1.1-6.1) % Sodium 133 L (137-145) mmol/L Potassium 2.2 L* (3.5-5.1) mmol/L Carbon Dioxide (22-30) mmol/L Creatinine 1.08 H (0.52-1.04) mg/dL Glucose 126 H (74-99) mg/dL Uric Acid 3.3 L 3.4 L (3.7-7.4) mg/dL Calcium 7.4 L (8.4-10.2) mg/dL Phosphorus 2.0 L (2.5-4.5) mg/dL Magnesium 1.3 L (1.6-2.3) mg/dL 02/17/25 02/17/25 02/17/25 Range/Units 04:20 04:20 04:20 WBC 194.32 H* (4.50-10.00) 10*3/uL RBC 2.47 L (4.10-5.20) 10*6/uL Hgb 7.2 L (12.0-15.0) g/dL Hct 20.8 L (37.2-46.3) % Plt Count 63 L (140-440) 10*3/uL Blast Cells % 84 H* % Lymphocytes # (Manual) 15.55 H (1.0-4.8) k/uL Monocytes # (Manual) 3.89 H (0-1.0) k/uL Metamyelocytes # (Man) 1.94 H (0) k/uL Blast Cells # (Man) 163.23 H (0) k/uL Nucleated RBCs 2 H (0-0) /100 WBC Immature Plt Fraction 10.7 H (1.1-6.1) % Sodium (137-145) mmol/L Potassium 3.4 L (3.5-5.1) mmol/L Carbon Dioxide (22-30) mmol/L Creatinine 1.20 H (0.52-1.04) mg/dL Glucose (74-99) mg/dL Uric Acid (3.7-7.4) mg/dL Calcium (8.4-10.2) mg/dL Phosphorus (2.5-4.5) mg/dL Magnesium (1.6-2.3) mg/dL 02/17/25 02/17/25 02/17/25 Range/Units 04:20 04:20 09:41 WBC (4.50-10.00) 10*3/uL RBC (4.10-5.20) 10*6/uL Hgb (12.0-15.0) g/dL Hct (37.2-46.3) % Plt Count (140-440) 10*3/uL Blast Cells % % Lymphocytes # (Manual) (1.0-4.8) k/uL Monocytes # (Manual) (0-1.0) k/uL Metamyelocytes # (Man) (0) k/uL Blast Cells # (Man) (0) k/uL Nucleated RBCs (0-0) /100 WBC Immature Plt Fraction (1.1-6.1) % Sodium 134 L (137-145) mmol/L Potassium 3.2 L 3.2 L (3.5-5.1) mmol/L Carbon Dioxide 19 L (22-30) mmol/L Creatinine 1.31 H (0.52-1.04) mg/dL Glucose 135 H (74-99) mg/dL Uric Acid (3.7-7.4) mg/dL Calcium 7.5 L (8.4-10.2) mg/dL Phosphorus 2.1 L (2.5-4.5) mg/dL Magnesium (1.6-2.3) mg/dL Assessment and Plan (1) Neutropenic fever Current Visit: Yes Status: Acute Priority: High Code(s): D70.9 - NEUTROPENIA, UNSPECIFIED; R50.81 - FEVER PRESENTING WITH CONDITIONS CLASSIFIED ELSEWHERE SNOMED Code(s): 369602550 (2) AML (acute myelogenous leukemia) Current Visit: Yes Status: Acute Priority: High Code(s): C92.00 - ACUTE MYELOBLASTIC LEUKEMIA, NOT HAVING ACHIEVED REMISSION SNOMED Code(s): 22860721 Plan: Fever -Fevers persist-likely 2/2 AML - Pancultures neg - Cefepime and vancomycin cont. Pt is also on oral levaquin and acyclovir Acute myeloid leukemia, R/R - Diagnosis and treatment as stated in consult - WBC/blasts cont to increase despite Venclexta and hydrea. -Uric acid monitoring, allopurinol started in anticipation of tumor lysis syndrome -Transfer in progress today. Intent of transfer is for induction chemotherapy, possible leukophoresis. She can also be assessed by BMT. Bicytopenia-leukocytosis -2/2 treatment medications and disease -Transfuse with irradiated blood products only. -Transfuse for hemoglobin less than 7 or if symptomatic. -Transfuse for platelets less than 10,000 or if symptomatic. Continue to hold Eliquis for now. Patient does have an IVC filter, per , was placed in May. -CBC daily. -Leukocytosis-2/2 disease. Cont venclexta and hydrea for now. Pt should have been on FLT3 inhibitor but, it does not appear this was ordered for her when she started reinduction treatment last month at [facility]. This is not a formulary drug, it is specialty pharmacy drug so, not easy to access acutely. Oncologist receiving pt in [place] aware of the same
--- NOTE | 2025-02-17 13:24 | P.PN ---
Subjective Progress Note Date: 02/17/25 Principal diagnosis: Acute blast crisis with sepsis and AML Patient is currently being seen in the emergency department as an overflow for the oncology unit. Admitted back on 02/12/2025 with neutropenic fever. I was contacted as the patient has developed hypotension. She has received several fluid boluses, 4 L of crystalloid fluid in total. Normal saline infusing at 130 mL/h. She is lethargic and diaphoretic, information is being supplemented by who is at bedside. 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 She has been following with out-of-town oncologist, out of the [facility] system. Did reportedly have disease remission. Followed by a bone marrow biopsy late December, showing recurrent disease. She was hospitalized at [facility] on January for chemo reinduction. Reportedly, had blast crisis and had leukapheresis. Ultimately, discharged home last . She has been continued on Venclexta p.o. daily. She reportedly has an appointment with Dr. Antonio to set up infusions locally. 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 Over the last several days patient has developed intermittent fevers, generalized weakness, and heart racing. Presented the emergency department back on 02/12/2025. Found to be febrile and neutropenic. Chemotherapy is on hold. She has been started on empiric antibiotics in the form of cefepime and vancomycin. Chest x-ray does not show any acute cardiopulmonary process. Urinalysis unremarkable for infection. Abdomen is soft, non-tender. Does endorse some nausea without emesis or diarrhea. Appetite has been poor. CBC: WBC count 2.07, hemoglobin 7.9 g/dL, platelets 31,000. Coagulation profile with a PT of 12.9, INR 1.2, APTT 29.4. CMP: Sodium 134, potassium 4.8, chloride 97, serum bicarb 22, BUN 18, creatinine 1.3, blood glucose 136. LFTs not elevated. Troponin less than 0.012. EKG: Sinus tachycardia, rate 132 bpm, no acute ischemic changes. Lactic acid 2 down to 0.7. Currently, patient's blood pressure is 76/57 mmHg and tachycardic. Febrile with a Tmax of 103.3 F. I am recommending that we start the patient on norepinephrine infusion for blood pressure support. She is going to be transferred to the intensive care unit. 02/15/2025, the patient is being seen for a follow-up. On today's evaluation, the patient is awake and alert. She is on 2 L of oxygen by nasal cannula. She remains on bicarb infusion. No pressors. She received a total of 2 units of packed RBC. She continues to be febrile with a Tmax of 101.8. She had a bowel movement. No diarrhea. Procalcitonin level is at 3.8. She is still covered with a combination of cefepime, Levaquin, vancomycin and she is also on acyclovir. Blood work from today shows a white cell count of 39, hemoglobin of 8 and a platelet count of 650. The patient has 78% blasts. Sodium is at 133, potassium is at 2.6, BUN is 21 with a creatinine of 1.2. Creatinine is improved compared to yesterday. Calcium level 7.8. On 02/16/2025, the patient is lethargic, weak, having nausea, having dry heaves, headaches and diffuse bodyaches. Hematologic profile is worse. The patient is in acute blast crisis. The white cell count is up 213, with a 74% blasts and the patient has a hemoglobin of 8.4 and a platelet count of 80,000. Sodium is 133, electrolytes are normal and the potassium and phosphorus needs to be repla [place]. Potassium levels of 2.5 phosphorus is less than 0.5. BUN 16 with a creatinine of 1.09. The patient received a total of 80 mEq of potassium overnight and the potassium remains low. She is on no pressors. She remains on oxygen 2 L/min nasal cannula. She remains on a bicarb infusion which is running at 100 cc an hour. Antibiotic coverage was unchanged and the patient remains on IV cefepime, Levaquin, vancomycin and acyclovir. She is having low-grade fevers with a Tmax of 100.3. She is in sinus tachycardia. Patient was seen today on 02/17/2025, patient is getting more lethargic, weak, had a Tmax yesterday of 103, remains on vancomycin cefepime and Levaquin patient is becoming more edematous. Supposedly the patient was accepted at [facility] in [place], for leukapheresis. Patient is yet to be cleared by her insurance for transfer. In the meantime patient is becoming more edematous, quite lethargic, her WBC count is 194,000's hemoglobin is 7.2 blasts are 84%. Potassium is low at 3.2 renal profile is abnormal with BUN of 16 creatinine up to 1.31, uric acid is 3.4. Blood cultures remain negative no growth in the last 72 hours. is at bedside, and made aware of the process of transferring the patient down to [facility] in [place], patient remains hemodynamically stable and she is on nasal cannula/3 L/min, O2 sat is 96%. Blood pressure is 87/61 with a mean of 72. Patient is complaining of weakness, diffuse bodyaches, and headaches. Objective - Vital Signs Vital signs: Vital Signs Temp 98.2 F 02/17/25 12:00 Pulse 123 H 02/17/25 12:00 Resp 28 H 02/17/25 12:00 BP 87/61 02/17/25 12:00 Pulse Ox 96 02/17/25 12:00 FiO2 Intake & Output 02/16/25 02/17/25 02/17/25 18:59 06:59 18:59 Intake Total 2300 2300 1750 Output Total 0 500 270 Balance 2300 1800 1480 Weight 106 kg Intake: IV 2300 2300 1750 ACETAMINOPHEN IV (For NPO 100 100 ) 1,000 mg In Empty Bag 1 bag @ 400 mls/hr IVPB Q6HR PRN Rx#:[id number] Cefepime 2 gm In Sodium 100 Chloride 0.9% 100 ml @ 25 mls/hr IVPB Q12H [facility] Rx# :[id number] Dextrose 5% in Water 1, 300 000 ml @ 100 mls/hr IV . [id number] [facility] with Sodium Bicarb (1 Meq/ml) 150 ml Rx#:[id number] Lactated Ringers 1,000 ml 1350 1800 900 @ 150 mls/hr IV .Q6H40M [facility] Rx#:[id number] Potassium Chloride 10 meq 200 In Water For Injection 1 100ml.bag @ 100 mls/hr IVPB Q1HR [facility] Rx#: [id number] Sodium Phosphate 60 mmol 250 250 In Dextrose 5% in Water 250 ml @ 45 mls/hr IVPB ONCE ONE Rx#:[id number] Vancomycin 1,500 mg In 500 500 Sodium Chloride 0.9% 500 ml 500 ml @ 167 mls/hr IVPB Q16H [facility] Rx#: [id number] Output: Gastric Drainage 150 150 Urine 0 350 120 Other: Voiding Method Diaper Diaper External Catheter External Catheter # Voids 1 1 # Bowel Movements 1 - Exam GENERAL EXAM: Lethargic, 59-year-old obese female, not in distress, on 3 L nasal cannula HEAD: Normocephalic and atraumatic EYES: Normal reaction of pupils, equal size. NOSE: Clear with pink turbinates. THROAT: No erythema or exudates. NECK: No masses, no JVD. CHEST: No chest wall deformity. LUNGS: Diminished breath sound bilaterally no rhonchi no wheezes CVS: S1 and S2 normal with no audible murmur, regular rhythm. No extra heart sounds ABDOMEN: No hepatosplenomegaly, active bowel sounds, no guarding or rigidity. SKIN: No rashes CENTRAL NERVOUS SYSTEM: Lethargic otherwise no gross focal deficit EXTREMITIES: 3+ bipedal edema - Labs CBC & Chem 7: 02/17/25 04:20 02/17/25 09:41 Labs: Abnormal Lab Results - Last 24 Hours (Table) 02/16/25 02/16/25 02/17/25 Range/Units 18:14 18:14 04:20 WBC (4.50-10.00) 10*3/uL RBC (4.10-5.20) 10*6/uL Hgb (12.0-15.0) g/dL Hct (37.2-46.3) % Plt Count (140-440) 10*3/uL Blast Cells % % Lymphocytes # (Manual) (1.0-4.8) k/uL Monocytes # (Manual) (0-1.0) k/uL Metamyelocytes # (Man) (0) k/uL Blast Cells # (Man) (0) k/uL Nucleated RBCs (0-0) /100 WBC Immature Plt Fraction (1.1-6.1) % Sodium 133 L (137-145) mmol/L Potassium 2.2 L* (3.5-5.1) mmol/L Carbon Dioxide (22-30) mmol/L Creatinine 1.08 H (0.52-1.04) mg/dL Glucose 126 H (74-99) mg/dL Uric Acid 3.3 L 3.4 L (3.7-7.4) mg/dL Calcium 7.4 L (8.4-10.2) mg/dL Phosphorus 2.0 L (2.5-4.5) mg/dL Magnesium 1.3 L (1.6-2.3) mg/dL 02/17/25 02/17/25 02/17/25 Range/Units 04:20 04:20 04:20 WBC 194.32 H* (4.50-10.00) 10*3/uL RBC 2.47 L (4.10-5.20) 10*6/uL Hgb 7.2 L (12.0-15.0) g/dL Hct 20.8 L (37.2-46.3) % Plt Count 63 L (140-440) 10*3/uL Blast Cells % 84 H* % Lymphocytes # (Manual) 15.55 H (1.0-4.8) k/uL Monocytes # (Manual) 3.89 H (0-1.0) k/uL Metamyelocytes # (Man) 1.94 H (0) k/uL Blast Cells # (Man) 163.23 H (0) k/uL Nucleated RBCs 2 H (0-0) /100 WBC Immature Plt Fraction 10.7 H (1.1-6.1) % Sodium (137-145) mmol/L Potassium 3.4 L (3.5-5.1) mmol/L Carbon Dioxide (22-30) mmol/L Creatinine 1.20 H (0.52-1.04) mg/dL Glucose (74-99) mg/dL Uric Acid (3.7-7.4) mg/dL Calcium (8.4-10.2) mg/dL Phosphorus (2.5-4.5) mg/dL Magnesium (1.6-2.3) mg/dL 02/17/25 02/17/25 02/17/25 Range/Units 04:20 04:20 09:41 WBC (4.50-10.00) 10*3/uL RBC (4.10-5.20) 10*6/uL Hgb (12.0-15.0) g/dL Hct (37.2-46.3) % Plt Count (140-440) 10*3/uL Blast Cells % % Lymphocytes # (Manual) (1.0-4.8) k/uL Monocytes # (Manual) (0-1.0) k/uL Metamyelocytes # (Man) (0) k/uL Blast Cells # (Man) (0) k/uL Nucleated RBCs (0-0) /100 WBC Immature Plt Fraction (1.1-6.1) % Sodium 134 L (137-145) mmol/L Potassium 3.2 L 3.2 L (3.5-5.1) mmol/L Carbon Dioxide 19 L (22-30) mmol/L Creatinine 1.31 H (0.52-1.04) mg/dL Glucose 135 H (74-99) mg/dL Uric Acid (3.7-7.4) mg/dL Calcium 7.5 L (8.4-10.2) mg/dL Phosphorus 2.1 L (2.5-4.5) mg/dL Magnesium (1.6-2.3) mg/dL Assessment and Plan Assessment: Impression: Acute blast crisis in a patient with AML Low-grade fever, could be tumor induced fever or underlying sepsis Acute sepsis remains empirically on broad-spectrum antibiotics including Levaquin, vancomycin, and cefepime. AML with blast crisis may require leukapheresis. 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 Continue Tylenol for fever and continue present supportive care measures Continue to monitor blood count and platelets, Eliquis is presently on hold Continue to monitor renal functioning Discussed her condition with at bedside Will try to speed up transfer if possible sometime today In the meantime continue to monitor closely in the ICU, Patient is very critically ill prognosis is extremely poor and guarded Critical care time is 35 minutes. updated on her condition. Time with Patient: Greater than 30
--- NOTE | 2025-02-17 17:49 | P.DS ---
Providers Date of admission: 02/12/25 20:43 Attending physician: Kristine Leonard Consults: 02/12/25 20:38 Consult Physician Urgent Consulting Provider: Linda Antonio Consult Reason/Comments: Neutropenic fever, recurrent AML Do you want consulting provider notified?: Yes 02/13/25 22:38 Consult Physician Stat Consulting Provider: Lizbeth Khan Consult Reason/Comments: Hypotension Do you want consulting provider notified?: Yes 02/13/25 22:39 Consult Physician Routine Consulting Provider: Colette Hamilton Consult Reason/Comments: neutropenic fever, AML Do you want consulting provider notified?: Yes, Notify in am 02/16/25 19:24 Consult Physician Stat Consulting Provider: Aviva Amaya Consult Reason/Comments: Blast Crisis, increased swelling, abnormal lytes Do you want consulting provider notified?: Yes Primary care physician: Macario De Paz [facility] Course: Hospital Course: Patient is a 59-year-old female with relasped AML on chemotherapy, asthma, Crohn's disease, history of DVT and PE with IVC filter and anticoagulation on [facility] here for evaluation of fever. Patient reported that the fever started yesterday with associated nausea and palpitations. She had history of neutrope susie fever about 3 weeks ago and treated in [facility]. She also reported chest pain during time of evaluation. She denied shortness of breath, cough, changes in urination or defecation, extremity swelling, abdominal pain, recent trauma or fall. On admission: Vitals: Temp 100.4, GA 129, RR 20, BP 122/75, O2 saturation 96% on room air Labs: WBC 2.07, hemoglobin 7.9, platelet count 31,000, sodium 134, potassium 4.8, chloride 97, BUN 18, creatinine 1.3, glucose 136, lactic acid 2, calcium 9.2, alk phos 143, AST 19, ALT 12, albumin 4.6. Troponin negative. Urinalysis showed trace protein, trace blood, negative nitrites, negative leukocyte esterase. Imaging: Chest x-ray showed no acute pulmonary process. Initial EKG showed sinus tachycardia with a rate of 132, no ST-T changes, QTc 372 MS. Second EKG showed sinus tachycardia with a rate of 132, normal axis, no ST-T changes, QTc 389 MS. Patient was admitted for an evaluation for neutropenic fever and chest pain to rule out ACS. Empiric IV antibiotics, pain control IV and p.o., blood cultures, IV fluids, cardiac monitoring, trending troponins were ordered. Infectious disease, oncology and cardiology consulted. Patient became hypotensive despite 4 L of IV boluses. Required Levophed for pressor support. Eventually she was weaned off. She required 2 units of packed RBC during this admission. Blood cultures were negative. She was also placed on bicarb drip as she was having metabolic acidosis due to ORTIZ. Patient developed acute blast crisis 02/15 and her home Venclexta was resumed. However patient's white count and blast count continued to worsen which required us to transfer the patient for induction chemotherapy and leukopheresis. Patient was transferred today to [facility] in [place], accepted by Dr. Paco Meneses ([employer]). Final Diagnosis: # Acute blast crisis #. Severe Neutropenic fever #. Acute myeloid leukemia currently taking chemotherapy. With previous disease and recurrence. Recently admitted to [facility]. She had induction treatment on January 09, 2025. #. Pancytopenia secondary to above, status post 2 units PRBC transfusion #. Anion gap metabolic acidosis #. Hypokalemia #. Hypophosphatemia #. Hypomagnesemia #. Hypocalcemia #. Acute on CKD stage III, baseline #. Chest pain, ACS ruled out #. Asthma #. Crohn's disease #. History of DVT and PE Physical examination: Vital signs reviewed General: non toxic, no distress Derm: no unusual rashes/lesions, warm Head: atraumatic, normocephalic, symmetric Eyes: EOMI, anicteric sclera, pupils equal round reactive to light ENT: Nose and ears atraumatic Neck: No cervical lymphadenopathy, trachea midline, supple Mouth: no lip lesion, mucus membranes moist Cardiovascular: S1S2 reg, no murmur Lungs: CTA bilateral, no rhonchi, no rales, no accessory muscle use Abdominal: soft, nondistended, nontender to palpation, no guarding Ext: muscle strength 5 out of 5 in all 4 extremities grossly, no gross muscle atrophy, no contractures, positive dorsalis pedis pulse bilateral, no edema Neuro: CN II-XI grossly intact, no gross focal neuro deficits Psych: Alert, oriented, appropriate affect and mood Attestation Attestation/ Mobile Application Development Lead Note: Attestation to Discharge Summary, Participation (I saw and evaluated the patient with the Resident, and I reviewed and discussed the patient with the Resident and agree with the Resident's findings and plans as documented above., management reviewed and discussed), I agree with findings & plan, Provider Signature (ALFIE PETERS, RUBY Shabazz Patient Condition at Discharge: Critical Plan - Discharge Summary Discharge Rx Participant: No New Discharge Prescriptions: Continue Thyroid,Pork [Adams Thyroid] 90 mg PO DAILY aMILoride HCL 5 mg PO DAILY Magnesium Chloride [Mag64] 64 mg PO TID Apixaban [Eliquis] 5 mg PO BID Acetaminophen Tab [Tylenol] 650 mg PO Q6H PRN PRN Reason: Pain Vitamin D3(Unknown Dose) 1 tab PO DAILY Vitamin B Complex W/Vitamin C 1 tab PO DAILY Venetoclax [Venclexta] 200 mg PO DAILY calcitrioL 0.25 mcg PO MOWEFR oxyCODONE HCL [OxyIR] 5 mg PO Q4H PRN PRN Reason: Moderate Pain (Scale 4 To 6) EPINEPHrine (Auto Inject) [Epipen] 0.3 mg IM ONCE PRN PRN Reason: Anaphylaxis Albuterol Nebulized [Ventolin Nebulized] 2.5 mg INHALATION RT-Q6H PRN PRN Reason: Shortness Of Breath Potassium Chloride ER [K-Dur 20] 40 meq PO BID Pantoprazole Sodium [Protonix] 40 mg PO AC-BID Loratadine-Pseudoeph 10-240 mg [Claritin-D 24 Hour] 1 tab PO DAILY Levofloxacin [Levaquin] 500 mg PO DAILY Fluconazole [Diflucan] 200 mg PO DAILY allopurinoL [Zyloprim] 300 mg PO DAILY Acyclovir [Zovirax] 400 mg PO BID Discharge Medication List Thyroid,Pork [Adams Thyroid] 90 mg PO DAILY 03/29/17 [History] Apixaban [Eliquis] 5 mg PO BID 12/11/24 [History] Magnesium Chloride [Mag64] 64 mg PO TID 12/11/24 [History] aMILoride HCL 5 mg PO DAILY 12/11/24 [History] calcitrioL 0.25 mcg PO MOWEFR 12/11/24 [History] Acetaminophen Tab [Tylenol] 650 mg PO Q6H PRN 02/12/25 [History] Acyclovir [Zovirax] 400 mg PO BID 02/12/25 [History] Albuterol Nebulized [Ventolin Nebulized] 2.5 mg INHALATION RT-Q6H PRN 02/12/25 [History] EPINEPHrine (Auto Inject) [Epipen] 0.3 mg IM ONCE PRN 02/12/25 [History] Fluconazole [Diflucan] 200 mg PO DAILY 02/12/25 [History] Levofloxacin [Levaquin] 500 mg PO DAILY 02/12/25 [History] Loratadine-Pseudoeph 10-240 mg [Claritin-D 24 Hour] 1 tab PO DAILY 02/12/25 [History] Pantoprazole Sodium [Protonix] 40 mg PO AC-BID 02/12/25 [History] Potassium Chloride ER [K-Dur 20] 40 meq PO BID 02/12/25 [History] Venetoclax [Venclexta] 200 mg PO DAILY 02/12/25 [History] Vitamin B Complex W/Vitamin C 1 tab PO DAILY 02/12/25 [History] Vitamin D3(Unknown Dose) 1 tab PO DAILY 02/12/25 [History] allopurinoL [Zyloprim] 300 mg PO DAILY 02/12/25 [History] oxyCODONE HCL [OxyIR] 5 mg PO Q4H PRN 02/12/25 [History] Follow up Appointment(s)/Referral(s): Macario Mario [Primary Care Provider] - 1-2 days Discharge Disposition: TRANSFER TO [facility]
--- NOTE | 2025-02-19 13:22 | CDI ---
Documentation Clarification Form Date: 02/19/2025 01:07:12 PM From: Zulay Nance Admit Date: 02/12/2025 08:43:00 PM Patient Name: Jose Armstrong Visit Number: [id number] Discharge Date: 02/17/2025 02:00:00 PM ATTENTION: The Clinical Documentation Specialists (CDI) and [facility] Coding Staff appreciate your assistance in clarifying documentation. Please respond to the clarification below the line at the bottom and electronically sign. The CDI & [facility] Coding staff will review the response and follow-up if needed. Please note: Queries are made part of the Legal Health Record. If you have any questions, please contact the author of this message via ITS. Doctor/Provider: Mare Massey The patient has AML acute blast crisis with sepsis documented by Cardiology, pulmonology and ID consults and their Progress notes and diagnosis not carried to [facility]. Based on this information and the findings below, is there an additional diagnosis that is clinically appropriate for this patient? 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 [ x] Sepsis, present on admission [ ] Sepsis, developed during stay, not present on admission [ ] Severe Sepsis with organ failure [ ] Septic Shock [ ] SIRS, without underlying infectious process [ ] No additional diagnosis/not clinically significant [ ] Other, please specify [ ] Unable to determine SIRS Criteria: 2 or more of the following may indicate SIRS Temperature < 96.8F (36C) or > 101.0F (38.3C) Heart Rate > 90 bpm Respiratory Rate > 20 breaths/min or PaCO2 < 32 mmHg White Blood Cell Count > 12,000 or < 4,000 cells/mm3 or > 10% bands MTDD
== END 2025-02-17 14:00 | disposition short-term general hospital (02) | DRG 871 ==
LOC: EC 17:14 → 5NMEDONC 20:43 → 6NMEDSUR 02-13 06:47 → 5NMEDONC 02-13 14:36 → 2SICU 02-13 22:51
PROVIDERS: ADMIT Hospitalist; ATTEND Hospitalist
PROC: 3E043XZ Introduction of Vasopressor into Central Vein, Percutaneous Approach (ICD-10-PCS; principal; 2025-02-12)
DX: A41.9 Sepsis, unspecified organism (principal); N17.0 Acute kidney failure with tubular necrosis; R65.21 Severe sepsis with septic shock; C92.00 Acute myeloblastic leukemia, not having achieved remission; D61.818 Other pancytopenia; E83.39 Other disorders of phosphorus metabolism; E83.51 Hypocalcemia; N18.30 Chronic kidney disease, stage 3 unspecified; E03.9 Hypothyroidism, unspecified; E66.9 Obesity, unspecified; J45.20 Mild intermittent asthma, uncomplicated; Z95.828 Presence of other vascular implants and grafts; K50.90 Crohn's disease, unspecified, without complications; E87.20 Acidosis, unspecified; M19.90 Unspecified osteoarthritis, unspecified site; D69.59 Other secondary thrombocytopenia; Z68.30 Body mass index [BMI] 30.0-30.9, adult; G43.909 Migraine, unspecified, not intractable, without status migrainosus; I83.90 Asymptomatic varicose veins of unspecified lower extremity; E78.5 Hyperlipidemia, unspecified; E83.42 Hypomagnesemia; E87.6 Hypokalemia; R50.81 Fever presenting with conditions classified elsewhere; Z79.01 Long term (current) use of anticoagulants; Z79.899 Other long term (current) drug therapy; Z86.711 Personal history of pulmonary embolism; Z86.718 Personal history of other venous thrombosis and embolism; Z86.73 Personal history of transient ischemic attack (TIA), and cerebral infarction without residual deficits; Z90.721 Acquired absence of ovaries, unilateral; Z96.653 Presence of artificial knee joint, bilateral; Z28.310 Unvaccinated for COVID-19; Z28.21 Immunization not carried out because of patient refusal; Z88.6 Allergy status to analgesic agent; Z88.5 Allergy status to narcotic agent; Z88.0 Allergy status to penicillin
CPT/HCPCS: 36415; 70450; 71046; 80048; 80053; 80202; 81001; 82330; 82565; 83605; 83735; 84100; 84132; 84133; 84145; 84484; 84550; 85025; 85610; 85730; 86850; 86900; 86901; 86920; 87040; 93005; 94760; 96361; 96365; 96366; 96367; 96368; 96375; 96376; 99285